=== PATIENT | male | born 1960 | race Caucasian/White ===

== ENCOUNTER 2016-09-19 12:58 | Emergency (ER) | payer OTHER, MEDICAID ==
--- NOTE | 2016-09-19 13:12 | EDPHY ---
H & P Time Seen by Provider: 09/19/16 13:11 - Personal History Tetanus Vaccine Date: <10 years - Medical/Surgical History Hx Asthma: Yes Hx Chronic Respiratory Disease: No Hx Diabetes: No Hx Cardiac Disease: No Hx Renal Disease: Yes Hx Cirrhosis: No Hx Alcoholism: No Hx HIV/AIDS: No Hx Splenectomy or Spleen Trauma: No Other PMH: hx acute kidney failure, arthritis, hypothyroid, asthma, depression - Social History Smoking Status: Former smoker Constitutional: Initial Vital Signs Temperature (C) 36.8 C 09/19/16 13:10 Heart Rate 80 09/19/16 13:10 Respiratory Rate 16 09/19/16 13:10 Blood Pressure 108/64 09/19/16 13:10 O2 Sat (%) 92 09/19/16 13:10 O2 Delivery Mode Nasal Cannula O2 (L/minute) 2 Allergies/Adverse Reactions: No Known Allergies Allergy (Verified 03/10/14 11:02) Home Medications: Medication Instructions Recorded Bupropion HCl [Bupropion HCl Sr] 150 mg PO TID 01/30/14 Gabapentin [Neurontin 300 MG (*)] 300 mg PO QID 01/30/14 Levothyroxine [Synthroid 50 mcg 50 mcg PO DAILY 01/30/14 (*)] Albuterol [Proventil Inhaler HFA 2 puffs IH Q4 PRN 02/25/14 (*)] Hydrochlorothiazide [HCTZ (*)] 25 mg PO DAILY PRN 02/25/14 Quinapril HCl [Accupril 20 MG] 20 mg PO DAILY 02/25/14 traZODone [traZODONE 50MG (*)] 100 mg PO HS 03/01/14 Doxazosin Mesylate [Cardura] 4 mg PO DAILY 06/28/14 Herbals/Supplements -Info Only 1 ea PO DAILY 06/28/14 Terbinafine HCl [LamISIL AT Cream 1 pedro TP DAILY PRN 06/28/14 (*)] traMADol [Ultram 50 mg (*)] 50 mg PO Q4 PRN 07/19/14 Docusate Sodium [Colace 100 MG (*)] 100 mg PO BID #30 cap 07/22/14 Enoxaparin [Lovenox 40 MG (*)] 40 mg SC DAILY #3 syr 07/22/14 HYDROcodone/APAP 10/325 [[place] 1 - 2 tab PO Q6 PRN #120 tab 07/22/14 10/325 (*)] Warfarin Sodium [Coumadin 5MG (*)] 5 mg PO DAILY16 #20 tab 07/22/14 celeCOXIB [Celebrex (*)] 200 mg PO DAILY #20 cap 07/22/14 oxyCODONE CR [Oxycontin] 10 mg PO BID #7 tab 07/22/14 Famotidine [Pepcid 20 MG (OTC)] 20 mg PO DAILY #7 tab 09/19/16 HYDROcodone/APAP 10/325 [[place] 1 - 2 each PO Q4-6PRN PRN #20 tab 09/19/16 10/325] Pantoprazole Sodium [Protonix 40mg 40 mg PO DAILY #30 tab 09/19/16 (*)] Medical Decision Making - Diagnostics Imaging: Discussed imaging studies w/ call center representative Radiologist ED Course/Re-evaluation: CHIEF COMPLAINT: Abdominal pain. HISTORY OF PRESENT ILLNESS: The patient is a 56-year-old male who presents with one week of dull diffuse abdominal pain that worsened today and became more sharp in nature. He reports taking Advil "like M&Ms." He denies history of similar symptoms. REVIEW OF SYSTEMS: A 10 point review of systems was performed and is negative with the exception of the elements mentioned in the history of present illness. PHYSICAL EXAM: HR, BP, O2 Sat, RR. Temp noted General Appearance: Alert, well hydrated, appropriate, and non-toxic appearing. Head: Atraumatic without scalp tenderness or obvious injury Eyes: Pupils equal, round, reactive to light and accommodation, EOMI, no trauma , no injection. Ears: Clear bilaterally, no perforation, normal landmarks Nose: Atraumatic, no rhinorrhea, clear. Throat: There is no erythema or exudates, no lesions, normal tonsils, mucus membranes moist. Neck: Supple, 2+ carotid upstroke, nontender, no lymphadenopathy. Respiratory: No retractions, no distress, no wheezes, and no accessory muscle use. Lungs are clear to auscultation bilaterally. Cardiovascular: Regular rate and rhythm, no murmurs, rubs, or gallops. Bilateral carotid, radial, dorsalis pedis, and posterior tibial pulses intact. Good capillary refill all extremities. Gastrointestinal: Abdomen is soft, nontender, non-distended, no masses, no rebound, no guarding, no peritoneal signs. Musculoskeletal: Normal active ROM of all extremities, atraumatic. Neurological: Alert, appropriate, and interactive. The patient has normal DTRs and non-focal cranial nerves, motor, sensory, and cerebellar exam. Skin: No rashes, good turgor, no nodules on palpation. Past medical history: Acute kidney failure, osteoarthritis, hypothyroidism, asthma, depression. Past surgical history: Appendectomy, 2 total knee replacements. Family history: N/A. Social history: Here alone. DIAGNOSTICS/PROCEDURES/CRITICAL CARE TIME: Study: CT of the abdomen. Indication: Pain. Results: See Image Results section for official report. The study was read by the radiologist Dr. Myers. I viewed the images myself on the PACS system. DIFFERENTIAL DIAGNOSIS: The differential diagnosis for the patient's abdominal pain included but was not limited to appendicitis, cholecystitis, hernias, testicular torsion, gastritis, and urinary tract infection. MEDICAL DECISION MAKIN-year-old male presents with diffuse abdominal pain for the past week. He reports taking a large amount of NSAIDs and I am concerned for ulcer. We will check an abdominal CT. An IV was established and labs ordered. 1L IV saline and 1mg IV Dilaudid administered. ISTAT normal. WBC elevated at 12.09. 1512: CT results conveyed to me negative by Dr. Myers, radiology. I feel that this is likely a gastritis. I will discharge the patient with prescriptions for Protonix and Pepcid. He has been given a referral to gastroenterology. I have recommended he discontinue use of Advil. 1521: Reassessed patient. Discussed results of CT and lab work. I discussed the plan with him. He is comfortable going home and understands my instructions. - Data Points Laboratory Results: Laboratory Results 09/19/16 15:00 09/19/16 14:21 09/19/16 09/19/16 09/19/16 15:00 14:21 14:19 WBC 12.09 10^3/uL H 10^3/uL (3.80-9.50) RBC 4.38 10^6/uL L 10^6/uL (4.40-6.38) Hgb 14.1 g/dL g/dL (13.7-17.5) POC Hgb 16.0 gm/dL gm/dL (14.5-17.3) Hct 41.0 % % (40.0-51.0) POC Hct 47 % % (42.8-50.6) MCV 93.6 fL fL (81.5-99.8) MCH 32.2 pg pg (27.9-34.1) MCHC 34.4 g/dL g/dL (32.4-36.7) RDW 12.3 % % (11.5-15.2) Plt Count 182 10^3/uL 10^3/uL (150-400) MPV 10.2 fL fL (8.7-11.7) Neut % (Auto) 66.6 % % (39.3-74.2) Lymph % (Auto) 23.6 % % (15.0-45.0) [place] % (Auto) 6.9 % % (4.5-13.0) Eos % (Auto) 2.1 % % (0.6-7.6) Baso % (Auto) 0.4 % % (0.3-1.7) Nucleat RBC Rel Count 0.0 % % (0.0-0.2) Absolute Neuts (auto) 8.06 10^3/uL H 10^3/uL (1.70-6.50) Absolute Lymphs (auto) 2.85 10^3/uL 10^3/uL (1.00-3.00) Absolute Monos (auto) 0.83 10^3/uL H 10^3/uL (0.30-0.80) Absolute Eos (auto) 0.25 10^3/uL 10^3/uL (0.03-0.40) Absolute Basos (auto) 0.05 10^3/uL 10^3/uL (0.02-0.10) Absolute Nucleated RBC 0.00 10^3/uL 10^3/uL (0-0.01) Immature Gran % 0.4 % % (0.0-1.1) Immature Gran # 0.05 10^3/uL 10^3/uL (0.00-0.10) POC Sodium 141 mEq/L mEq/L (134-144) Sodium 141 mEq/L mEq/L (134-144) POC Potassium 4.3 mEq/L mEq/L (3.3-5.0) Potassium 4.5 mEq/L mEq/L (3.5-5.2) POC Chloride 103 mEq/L mEq/L (96-108) Chloride 105 mEq/L mEq/L (97-110) Carbon Dioxide 24 mEq/l mEq/l (22-31) Anion Gap 12 mEq/L mEq/L (8-16) POC BUN 23 mg/dL mg/dL (7-23) BUN 23 mg/dL mg/dL (7-23) Creatinine 1.1 mg/dL mg/dL (0.7-1.3) POC Creatinine 1.0 mg/dL mg/dL (0.8-1.5) Estimated GFR > 60 Glucose 84 mg/dL mg/dL (70-100) POC Glucose 84 mg/dL mg/dL (70-100) Calcium 10.1 mg/dL mg/dL (8.5-10.4) Total Bilirubin 0.6 mg/dL mg/dL (0.1-1.4) Conjugated Bilirubin 0.4 mg/dL mg/dL (0.0-0.5) Unconjugated Bilirubin 0.2 mg/dL mg/dL (0.0-1.1) AST 70 IU/L H IU/L (17-59) ALT 97 IU/L H IU/L (21-72) Alkaline Phosphatase 68 IU/L IU/L (38-126) Total Protein 7.4 g/dL g/dL (6.3-8.2) Albumin 4.4 g/dL g/dL (3.5-5.0) Lipase 56.0 IU/L IU/L (23-300) Medications Given: Discontinued Medications Hydromorphone HCl (Dilaudid) 1 mg IVP EDNOW ONE Stop: 09/19/16 13:31 Last Admin: 09/19/16 14:17 Dose: 1 mg Sodium Chloride (Ns) 1,000 mls @ 0 mls/hr IV ONCE ONE PRN Reason: Wide Open Stop: 09/19/16 13:31 Last Admin: 09/19/16 14:17 Dose: 1,000 mls Point of Care Test Results: 09/19/16 14:19 POC Sodium 141 POC Potassium 4.3 POC Chloride 103 POC BUN 23 POC Creatinine 1.0 POC Glucose 84 Departure - Departure Disposition: Home, Routine, Self-Care Clinical Impression: Gastritis Qualifiers: Gastritis type: unspecified gastritis Chronicity: unspecified Gastritis bleeding: presence of bleeding unspecified Qualified Code(s): K29.70 - Gastritis , unspecified, without bleeding Condition: Good Instructions: Gastritis (ED) Additional Instructions: Take Protonix and Pepcid as prescribed. Call Dr. Mcnair, GI, tomorrow to set up a follow up appointment. Return for any serious worsening of condition. Referrals: Raymond Mcnair MD [Medical Doctor] - As per Instructions Prescriptions: Famotidine [Pepcid 20 MG (OTC)] 20 mg PO DAILY #7 tab HYDROcodone/APAP 10/325 [[place] 10/325] 1 - 2 each PO Q4-6PRN PRN #20 tab PRN Reason: Pain, Moderate Pantoprazole Sodium [Protonix 40mg (*)] 40 mg PO DAILY #30 tab Report Scribed for: Ayad Escobar Report Scribed by: Josesito Mack Date of Report: 09/19/16 Time of Report: 13:26
[2016-09-19] MEDS ORDERED: HYDROmorphONE/DILAUDID 1 MG/ML SYR IVP ONE (13:30)
[2016-09-19] MEDS ORDERED: NS 1,000 ML IV ONE (13:30)
[2016-09-19] MEDS ORDERED: IOPAMIDOL (ISOVUE-300) 100 ML BTL IV ONE (14:31)
[2016-09-19 14:46] VITALS: PULSE 71
[2016-09-19 15:13] LABS: ALANINE AMINOTRANSFERASE 97 IU/L (21-72); ALBUMIN 4.4 g/dL (3.5-5.0); ALKALINE PHOSPHATASE 68 IU/L (38-126); ANION GAP 12 mEq/L (8-16); ASPARTATE AMINOTRANSFERASE 70 IU/L (17-59); BILIRUBIN,TOTAL 0.6 mg/dL (0.1-1.4); BILIRUBIN-CONJUGATED 0.4 mg/dL (0.0-0.5); BILIRUBIN-UNCONJUGATED 0.2 mg/dL (0.0-1.1); CALCIUM 10.1 mg/dL (8.5-10.4); CARBON DIOXIDE 24 mEq/l (22-31); CHLORIDE 105 mEq/L (97-110); CREATININE 1.1 mg/dL (0.7-1.3); GLOMERULAR FILTRATION RATE > 60; GLUCOSE 84 mg/dL (70-100); POTASSIUM 4.5 mEq/L (3.5-5.2); SODIUM 141 mEq/L (134-144); TOTAL PROTEIN 7.4 g/dL (6.3-8.2)
[2016-09-19 15:14] LABS: % IMMATURE GRANULYOCYTES 0.4 % (0.0-1.1); ABSOLUTE IMMATURE GRANULOCYTES 0.05 10^3/uL (0.00-0.10); ADD DIFF? NO; ADD MORPH? NO; ADD SCAN? NO; ATYPICAL LYMPHOCYTE FLAG 10 (0-99); FRAGMENT RBC FLAG 0 (0-99); HEMOGLOBIN 14.1 g/dL (13.7-17.5); LEFT SHIFT FLG 0 (0-99); LIPEMIA HEMOLYSIS FLAG 90 (0-99); MEAN CELL HEMOGLOBIN 32.2 pg (27.9-34.1); MEAN CELL HEMOGLOBIN CONCENTR. 34.4 g/dL (32.4-36.7); MEAN CELL VOLUME 93.6 fL (81.5-99.8); MEAN PLATELET VOLUME 10.2 fL (8.7-11.7); PLATELET CLUMPS FLAG 0 (0-99); PLATELET COUNT 182 10^3/uL (150-400); RED BLOOD CELL COUNT 4.38 10^6/uL (4.40-6.38); RED CELL DISTRIBUTION WIDTH 12.3 % (11.5-15.2)
[2016-09-19 15:34] VITALS: BP 110/65; RESP 18; TEMP 98.4; O2SAT 92
== END 2016-09-19 15:34 | disposition home or self-care (01) ==
LOC: EDUNIT#
DX: K29.70 Gastritis, unspecified, without bleeding (principal); J45.909 Unspecified asthma, uncomplicated; Z79.01 Long term (current) use of anticoagulants; Z87.891 Personal history of nicotine dependence
CPT/HCPCS: 74177; 96361; 96374; 99285; J1170; Q9967; 82947-QW

== ENCOUNTER 2017-08-19 14:57 | Emergency (ER) | payer OTHER, MEDICAID ==
[2017-08-19] MEDS ORDERED: NS 1,000 ML IV ONE (16:06)
--- NOTE | 2017-08-19 16:08 | EDPHY ---
H & P Time Seen by Provider: 08/19/17 15:58 HPI/ROS: CHIEF COMPLAINT: Abdominal pain HISTORY OF PRESENT ILLNESS: Patient says he has had problems with "cycling abdominal pain" for several years, was seen in September of last year for similar symptoms. He says that symptoms have been worse over the last 4 weeks. Describes bilateral lower abdominal pain not better worse with eating or drinking, not associated with urinary or testicular symptoms or vomiting or diarrhea. REVIEW OF SYSTEMS: Eye: no change in vision ENT: no sore throat Cardiac: no chest pain or syncope Pulmonary: no cough or SOB Abdomen: HPI Musculoskeletal: no back pain Skin: no rash Neuro: no headache Constitutional: no fever : no urinary symptoms. No dysuria or hematuria. A comprehensive 10 point review of systems is otherwise negative aside from elements mentioned in the history of present illness. PAST MEDICAL HISTORY: Appendectomy, depression, arthritis, hypothyroid, asthma. Hypertension and an episode of renal failure in the past. Social history: Denies alcohol General Appearance: Alert and conversant, cooperative. Eyes: No scleral icterus. ENT, Mouth: Normal mucous membranes. Respiratory: Normal respiratory effort, breath sounds equal, lungs are clear to auscultation. Cardiovascular: Regular rate and rhythm. Gastrointestinal: Abdomen is soft and non tender. Normal male without scrotal swelling or tenderness. Neurological: Alert, face symmetric, normal motor and sensory in extremities. Skin: Warm and dry, no rashes. No zoster. Musculoskeletal: No peripheral edema. Psychiatric: Not agitated. Mildly anxious. Emergency Department course/MDM: Plan for i-STAT and abdominal CT scanning, urinalysis. 1658: Results discussed, will treat with Bentyl and Toradol and Benadryl. Primary care referral. 1803: Urine dip negative, still he still has abdominal pain, soft and nontender on exam. Appears anxious. 5 mg IV Valium. 1906: Patient still says I "did not get the result I was hoping for" but his abdomen is nontender, he has had abdominal pain for a month, his urine and CT scan are negative. He is reassured and I will write him a prescription for Bentyl which he can try over the next few days. Smoking Status: Former smoker Constitutional: Initial Vital Signs Temperature (C) 36.4 C 08/19/17 15:12 Heart Rate 76 08/19/17 15:12 Respiratory Rate 18 08/19/17 15:12 Blood Pressure 188/92 H 08/19/17 15:12 O2 Sat (%) 94 08/19/17 15:12 O2 Delivery Mode Room Air Allergies/Adverse Reactions: No Known Allergies Allergy (Verified 08/19/17 15:08) Home Medications: Medication Instructions Recorded Gabapentin [Neurontin 300 MG (*)] 300 mg PO QID 01/30/14 Levothyroxine [Synthroid 50 mcg 50 mcg PO DAILY 01/30/14 (*)] Albuterol [Proventil Inhaler HFA 2 puffs IH Q4 PRN 02/25/14 (*)] Quinapril HCl [Accupril 20 MG] 20 mg PO DAILY 02/25/14 traZODone [traZODONE 50MG (*)] 100 mg PO HS 03/01/14 traMADol [Ultram 50 mg (*)] 50 mg PO Q4 PRN 07/19/14 HYDROcodone/APAP 10/325 [[place] 1 - 2 each PO Q4-6PRN PRN #20 tab 09/19/16 10/325] Pantoprazole Sodium [Protonix 40mg 40 mg PO DAILY #30 tab 09/19/16 (*)] Dicyclomine [Bentyl 20 MG (*)] 20 mg PO QID #20 tab 08/19/17 Prozac 10 MG (*) 08/19/17 Medical Decision Making - Diagnostics Imaging Results: Imaging Impressions Abdomen CT 08/19/17 16:20 Impression: 1. No acute findings in the abdomen or pelvis. 2. Mild diverticulosis without evidence of diverticulitis. 3. Additional findings as above. Findings discussed with Dr. Keanu Altamirano on 08/19/2017 at 16:51. Normal CT abdomen and pelvis discussed with Génesis at 1652. Imaging: Discussed imaging studies w/ steel checker Radiologist - Data Points Laboratory Results: Laboratory Results 08/19/17 16:11 08/19/17 16:11 08/19/17 08/19/17 08/19/17 16:19 16:11 16:11 WBC 11.48 10^3/uL H 10^3/uL (3.80-9.50) RBC 4.90 10^6/uL 10^6/uL (4.40-6.38) Hgb 15.5 g/dL g/dL (13.7-17.5) POC Hgb 16.3 gm/dL gm/dL (13.7-17.5) Hct 45.9 % % (40.0-51.0) POC Hct 48 % % (40-51) MCV 93.7 fL fL (81.5-99.8) MCH 31.6 pg pg (27.9-34.1) MCHC 33.8 g/dL g/dL (32.4-36.7) RDW 12.5 % % (11.5-15.2) Plt Count 216 10^3/uL 10^3/uL (150-400) MPV 10.4 fL fL (8.7-11.7) Neut % (Auto) 64.0 % % (39.3-74.2) Lymph % (Auto) 29.3 % % (15.0-45.0) [place] % (Auto) 5.0 % % (4.5-13.0) Eos % (Auto) 1.1 % % (0.6-7.6) Baso % (Auto) 0.3 % % (0.3-1.7) Nucleat RBC Rel Count 0.0 % % (0.0-0.2) Absolute Neuts (auto) 7.34 10^3/uL H 10^3/uL (1.70-6.50) Absolute Lymphs (auto) 3.36 10^3/uL H 10^3/uL (1.00-3.00) Absolute Monos (auto) 0.57 10^3/uL 10^3/uL (0.30-0.80) Absolute Eos (auto) 0.13 10^3/uL 10^3/uL (0.03-0.40) Absolute Basos (auto) 0.04 10^3/uL 10^3/uL (0.02-0.10) Absolute Nucleated RBC 0.00 10^3/uL 10^3/uL (0-0.01) Immature Gran % 0.3 % % (0.0-1.1) Immature Gran # 0.04 10^3/uL 10^3/uL (0.00-0.10) POC Sodium 141 mEq/L mEq/L (135-145) Sodium 143 mEq/L mEq/L (135-145) POC Potassium 4.6 mEq/L mEq/L (3.3-5.0) Potassium 4.7 mEq/L mEq/L (3.5-5.2) POC Chloride 103 mEq/L mEq/L (97-110) Chloride 101 mEq/L mEq/L (97-110) Carbon Dioxide 27 mEq/l mEq/l (22-31) Anion Gap 15 mEq/L mEq/L (8-16) POC BUN 18 mg/dL mg/dL (7-23) BUN 15 mg/dL mg/dL (7-23) Creatinine 0.9 mg/dL mg/dL (0.7-1.3) POC Creatinine 0.9 mg/dL mg/dL (0.7-1.3) Estimated GFR > 60 Glucose 75 mg/dL mg/dL (70-100) POC Glucose 80 mg/dL mg/dL (70-100) Calcium 10.7 mg/dL H mg/dL (8.5-10.4) Phosphorus 3.7 mg/dL mg/dL (2.5-4.5) Total Bilirubin 0.6 mg/dL mg/dL (0.1-1.4) Conjugated Bilirubin 0.3 mg/dL mg/dL (0.0-0.5) Unconjugated Bilirubin 0.3 mg/dL mg/dL (0.0-1.1) AST 53 IU/L IU/L (17-59) ALT 99 IU/L H IU/L (21-72) Alkaline Phosphatase 72 IU/L IU/L (38-126) Total Protein 7.8 g/dL g/dL (6.3-8.2) Albumin 4.6 g/dL g/dL (3.5-5.0) Lipase 78 IU/L IU/L (23-300) Medications Given: Discontinued Medications Diazepam (Valium) 5 mg IVP EDNOW ONE Stop: 08/19/17 18:05 Last Admin: 08/19/17 18:21 Dose: 5 mg Dicyclomine HCl (Bentyl) 20 mg PO EDNOW ONE Stop: 08/19/17 16:54 Last Admin: 08/19/17 17:17 Dose: 20 mg Diphenhydramine HCl (Benadryl Injection) 25 mg IVP EDNOW ONE Stop: 08/19/17 16:54 Last Admin: 08/19/17 17:17 Dose: 25 mg Sodium Chloride (Ns) 1,000 mls @ 0 mls/hr IV EDNOW ONE; Wide Open PRN Reason: Protocol Stop: 08/19/17 16:07 Last Admin: 08/19/17 17:17 Dose: 1,000 mls Ketorolac Tromethamine (Toradol) 15 mg IVP EDNOW ONE Stop: 08/19/17 16:45 Last Admin: 08/19/17 17:17 Dose: 15 mg Point of Care Test Results: 08/19/17 16:19 POC Sodium 141 POC Potassium 4.6 POC Chloride 103 POC BUN 18 POC Creatinine 0.9 POC Glucose 80 Departure - Departure Disposition: Home, Routine, Self-Care Clinical Impression: Abdominal pain Condition: Good Instructions: Acute Abdominal Pain (DC) Referrals: Janny Mcguire PA [Primary Care Provider] - As per Instructions Prescriptions: Dicyclomine [Bentyl 20 MG (*)] 20 mg PO QID #20 tab
[2017-08-19] MEDS ORDERED: IOPAMIDOL (ISOVUE-300) 100 ML BTL ONE (16:23)
[2017-08-19 16:31] LABS: PLATELET COUNT 216 10^3/uL (150-400)
[2017-08-19] MEDS ORDERED: KETOROLAC 30 MG/1 ML SDV IVP ONE (16:44)
[2017-08-19] MEDS ORDERED: DICYCLOMINE 10 MG CAP PO ONE (16:53)
[2017-08-19] MEDS ORDERED: DIAZEPAM 5 MG/ML 1 ML SYR IVP ONE (18:04)
[2017-08-19 19:16] VITALS: BP 136/99; PULSE 63; RESP 18; TEMP 98.1; O2SAT 99
== END 2017-08-19 19:14 | disposition home or self-care (01) ==
DX: R10.9 Unspecified abdominal pain (principal); I10 Essential (primary) hypertension; J45.909 Unspecified asthma, uncomplicated; E86.9 Volume depletion, unspecified; Z87.891 Personal history of nicotine dependence; Z90.49 Acquired absence of other specified parts of digestive tract
CPT/HCPCS: 74177; 96361; 96374; 96375; 99285; J1200; J1885; J3360; Q9967; 82947-QW

== ENCOUNTER 2018-05-20 17:36 | Inpatient (IN) | payer OTHER, MEDICAID ==
[2018-05-20 18:12] LABS: PLATELET COUNT 161 10^3/uL (150-400)
--- NOTE | 2018-05-20 19:29 | EDPHY ---
H & P Time Seen by Provider: 05/20/18 17:48 HPI/ROS: CHIEF COMPLAINT: Difficulty standing, shaking HISTORY OF PRESENT ILLNESS: Patient is a 58-year-old female who presents to the emergency department with complaints of difficulty standing and shaking. The patient states his symptoms have worsened over the past couple of days. Patient states he is having difficulty eating. Patient is unable to stand without assistance. Patient has no previous episodes of this. He denies head trauma. No recent falls. The patient denies drugs or alcohol. No recent fevers or chills. No chest pain or shortness of breath. No abdominal pain. No nausea vomiting. REVIEW OF SYSTEMS: 10 systems were reveiwed and are negative with the exception of the elements mentioned in the history of present illness. Past Medical/Surgical History: Includes anxiety, chronic pain, osteoarthritis, opiate dependency, hypertension , hypothyroidism Past surgical history: No recent surgery Social history: Patient does not smoke. He drinks alcohol occasionally. Smoking Status: Former smoker Physical Exam: Vitals noted 36.7, 90, 18, 94 % on room air GENERAL: No acute distress, alert. HEENT: Eyes normal to inspection, normal pharynx, no signs of dehydration. NECK: Normal, supple. RESPIRATORY: Clear to auscultation bilaterally, no rales, rhonchi or wheezing. CVS: Regular rate and rhythm, no rubs, murmurs, or gallops. ABDOMEN: Soft, nontender, nondistended, no organomegaly. BACK: Normal to inspection, no CVA tenderness. SKIN: Normal color, no rash, warm, dry. No pallor. EXTREMITIES: No pedal edema, no calf tenderness, no Homans sign or cords, no joint swelling. NEURO/PSYCH: Higher functions: Alert and Oriented x3. Slow mentation. Slightly slow speech. Normal mood and affect. Cranial nerves: Normal as tested. Cerebellar: The patient has a tremor at baseline. Patient has difficulty standing.. Peripheral exam: Normal motor exam. Normal sensation. Constitutional: Initial Vital Signs Temperature (C) 36.7 C 05/20/18 17:42 Heart Rate 90 05/20/18 17:42 Respiratory Rate 18 05/20/18 17:42 O2 Sat (%) 94 05/20/18 17:42 O2 Delivery Mode Room Air Allergies/Adverse Reactions: No Known Allergies Allergy (Verified 05/20/18 17:40) Home Medications: Medication Instructions Recorded Gabapentin [Neurontin 300 MG (*)] 300 mg PO QID 01/30/14 Levothyroxine [Synthroid 50 mcg 50 mcg PO DAILY 01/30/14 (*)] Albuterol [Proventil Inhaler HFA 2 puffs IH Q4 PRN 02/25/14 (*)] Quinapril HCl [Accupril 20 MG] 20 mg PO DAILY 02/25/14 traZODone [traZODONE 50MG (*)] 100 mg PO HS 03/01/14 Advair Hfa 45-21 Mcg Inhaler 11/17/17 Ibuprofen 11/17/17 hydrOXYzine HCL [Hydroxyzine HCl] 50 mg PO Q6-8PRN PRN #15 tablet 04/13/18 Amoxicillin 05/20/18 Rexulti 05/20/18 oxyCODONE CR 05/20/18 Medical Decision Making - Diagnostics Imaging Results: Imaging Impressions Head CT 05/20/18 18:33 Impression: There is no acute intracranial abnormality identified on this unenhanced CT evaluation. If there is further clinical concern regarding the patient's symptoms, MR imaging is suggested, if not otherwise contraindicated. Findings were discussed with SAE EDGAR MD at 18:53, on 05/20/2018. ED Course/Re-evaluation: In the emergency department I discussed possible etiologies with the patient answered all his questions. I again questioned the patient regarding alcohol use and possible alcohol withdrawal. Patient states he drinks only occasionally. The patient is mildly anemic. Hematocrit is 36. Patient's chemistry panel is notable for an elevated creatinine 3.1. Patient was given 1 L of normal saline hydration. Head CT: Please refer to the dictated report. No acute disease noted. I discussed results with the patient. I answered all his questions. Patient will be admitted for further observation. I discussed case with Dr. Rodriguez Differential Diagnosis: My differential includes but is not limited to alcohol withdrawal, opioid abuse , electrolyte abnormality, sugar abnormality, subarachnoid hemorrhage, subdural hematoma, epidural hematoma, mass, malignancy, normal pressure hydrocephalus - Data Points Laboratory Results: Laboratory Results 05/20/18 17:55 05/20/18 17:55 05/20/18 05/20/18 05/20/18 18:37 18:03 17:55 WBC RBC Hgb POC Hgb 12.6 gm/dL L gm/dL (13.7-17.5) Hct POC Hct 37 % L % (40-51) MCV MCH MCHC RDW Plt Count MPV Neut % (Auto) Lymph % (Auto) [place] % (Auto) Eos % (Auto) Baso % (Auto) Nucleat RBC Rel Count Absolute Neuts (auto) Absolute Lymphs (auto) Absolute Monos (auto) Absolute Eos (auto) Absolute Basos (auto) Absolute Nucleated RBC Immature Gran % Immature Gran # POC Sodium 141 mEq/L mEq/L (135-145) Sodium POC Potassium 4.6 mEq/L mEq/L (3.3-5.0) Potassium POC Chloride 110 mEq/L mEq/L (97-110) Chloride Carbon Dioxide Anion Gap POC BUN 46 mg/dL H mg/dL (7-23) BUN Creatinine POC Creatinine 3.1 mg/dL H mg/dL (0.7-1.3) Estimated GFR Glucose POC Glucose 95 mg/dL mg/dL (70-100) Calcium POC Troponin I 0.01 ng/mL ng/mL (0.00-0.08) NT-Pro-B Natriuret Pep 56 pg/mL pg/mL (0-125) 05/20/18 05/20/18 17:55 17:55 WBC 8.88 10^3/uL 10^3/uL (3.80-9.50) RBC 3.97 10^6/uL L 10^6/uL (4.40-6.38) Hgb 11.9 g/dL L g/dL (13.7-17.5) POC Hgb Hct 36.3 % L % (40.0-51.0) POC Hct MCV 91.4 fL fL (81.5-99.8) MCH 30.0 pg pg (27.9-34.1) MCHC 32.8 g/dL g/dL (32.4-36.7) RDW 12.1 % % (11.5-15.2) Plt Count 161 10^3/uL 10^3/uL (150-400) MPV 9.8 fL fL (8.7-11.7) Neut % (Auto) 58.1 % % (39.3-74.2) Lymph % (Auto) 27.0 % % (15.0-45.0) [place] % (Auto) 8.0 % % (4.5-13.0) Eos % (Auto) 6.0 % % (0.6-7.6) Baso % (Auto) 0.7 % % (0.3-1.7) Nucleat RBC Rel Count 0.0 % % (0.0-0.2) Absolute Neuts (auto) 5.16 10^3/uL 10^3/uL (1.70-6.50) Absolute Lymphs (auto) 2.40 10^3/uL 10^3/uL (1.00-3.00) Absolute Monos (auto) 0.71 10^3/uL 10^3/uL (0.30-0.80) Absolute Eos (auto) 0.53 10^3/uL H 10^3/uL (0.03-0.40) Absolute Basos (auto) 0.06 10^3/uL 10^3/uL (0.02-0.10) Absolute Nucleated RBC 0.00 10^3/uL 10^3/uL (0-0.01) Immature Gran % 0.2 % % (0.0-1.1) Immature Gran # 0.02 10^3/uL 10^3/uL (0.00-0.10) POC Sodium Sodium 138 mEq/L mEq/L (135-145) POC Potassium Potassium 4.8 mEq/L mEq/L (3.5-5.2) POC Chloride Chloride 110 mEq/L mEq/L (97-110) Carbon Dioxide 18 mEq/l L mEq/l (22-31) Anion Gap 10 mEq/L mEq/L (6-14) POC BUN BUN 52 mg/dL H mg/dL (7-23) Creatinine 2.8 mg/dL H mg/dL (0.7-1.3) POC Creatinine Estimated GFR 23 Glucose 95 mg/dL mg/dL (70-100) POC Glucose Calcium 9.4 mg/dL mg/dL (8.5-10.4) POC Troponin I NT-Pro-B Natriuret Pep Point of Care Test Results: Chemistry 05/20/18 05/20/18 18:37 18:03 POC Sodium 141 mEq/L mEq/L (135-145) POC Potassium 4.6 mEq/L mEq/L (3.3-5.0) POC Chloride 110 mEq/L mEq/L (97-110) POC BUN 46 mg/dL H mg/dL (7-23) POC Creatinine 3.1 mg/dL H mg/dL (0.7-1.3) POC Glucose 95 mg/dL mg/dL (70-100) POC Troponin I 0.01 ng/mL ng/mL (0.00-0.08) ISTAT H&H 05/20/18 18:03 POC Hgb 12.6 gm/dL L gm/dL (13.7-17.5) POC Hct 37 % L % (40-51) Departure - Departure Disposition: [facility] Inpatient Acute Clinical Impression: Ataxia, Tremor, Renal insufficiency Condition: Good Referrals: Janny Mcguire PA [Primary Care Provider] - As per Instructions
[2018-05-20] MEDS ORDERED: ONDANSETRON 4 MG/2 ML VIAL IVP PRN (21:48)
[2018-05-20] MEDS ORDERED: ONDANSETRON DISINTEGRATING 4 MG TAB PO PRN (21:48)
[2018-05-20] MEDS: NS 1,000 ML IV SCH (22:18)
[2018-05-20] MEDS: oxyCODONE IR 15 MG TAB PO SCH (23:29)
[2018-05-20] MEDS: traMADol 50 MG TAB PO SCH (23:29)
[2018-05-20] MEDS: traZODone 50 MG TAB PO SCH (23:29)
[2018-05-20] MEDS ORDERED: GABAPENTIN 400 MG CAP PO SCH (23:30)
[2018-05-21] MEDS: HEPARIN 5,000 UNIT/0.5 ML INJ SC SCH ×4 (00:46→20:42)
[2018-05-21] MEDS: FLUTICASONE/SALMETER 250/50MCG DISKUS IH SCH ×2 (00:48→20:29)
--- NOTE | 2018-05-21 01:53 | PDGENHP ---
History and Physical - History of Present Illness History Information - Allergies/Home Medication List Allergies/Adverse Reactions: No Known Allergies Allergy (Verified 05/20/18 17:40) Home Medications: Levothyroxine [Synthroid 50 mcg (*)] 50 mcg PO DAILY 01/30/14 [Last Taken ] Albuterol [Proventil Inhaler HFA (*)] 2 puffs IH Q4 PRN 02/25/14 [Last Taken 07/03 12:00] Quinapril HCl [Accupril 20 MG] 20 mg PO DAILY 02/25/14 [Last Taken 05/20/18] traZODone [traZODONE 50MG (*)] 1 - 3 tab PO HS 03/01/14 [Last Taken 05/19/18] Fluticasone/Salmeter 250/50Mcg [Advair 250/50 (*)] 1 puffs IH HS 05/20/18 [Last Taken 05/19/18] Gabapentin [Neurontin 400 MG (*)] 800 - 1,200 mg PO HS 05/20/18 [Last Taken 06/06] oxyCODONE IR [Oxycodone Ir (*)] 15 - 30 mg PO HS 05/20/18 [Last Taken 05/19/18] traMADol [Ultram 50 mg (*)] 100 mg PO QID 05/20/18 [Last Taken 05/20/18 12:00] - Social History Smoking Status: Former smoker Review of Systems Review of Systems: Physical Exam Physical Exam: Temp Pulse Resp BP Pulse Ox 37.1 C 64 16 101/66 96 05/20/18 23:53 05/21/18 00:51 05/21/18 00:51 05/20/18 23:53 05/21/18 00:51 O2 (L/minute) 2 Lab Data & Imaging Review 05/20/18 17:55 05/20/18 17:55 WBC 8.88 10^3/uL (3.80-9.50) 05/20/18 17:55 RBC 3.97 10^6/uL (4.40-6.38) L 05/20/18 17:55 Hgb 11.9 g/dL (13.7-17.5) L 05/20/18 17:55 POC Hgb 12.6 gm/dL (13.7-17.5) L 05/20/18 18:03 Hct 36.3 % (40.0-51.0) L 05/20/18 17:55 POC Hct 37 % (40-51) L 05/20/18 18:03 MCV 91.4 fL (81.5-99.8) 05/20/18 17:55 MCH 30.0 pg (27.9-34.1) 05/20/18 17:55 MCHC 32.8 g/dL (32.4-36.7) 05/20/18 17:55 RDW 12.1 % (11.5-15.2) 05/20/18 17:55 Plt Count 161 10^3/uL (150-400) 05/20/18 17:55 MPV 9.8 fL (8.7-11.7) 05/20/18 17:55 Neut % (Auto) 58.1 % (39.3-74.2) 05/20/18 17:55 Lymph % (Auto) 27.0 % (15.0-45.0) 05/20/18 17:55 [place] % (Auto) 8.0 % (4.5-13.0) 05/20/18 17:55 Eos % (Auto) 6.0 % (0.6-7.6) 05/20/18 17:55 Baso % (Auto) 0.7 % (0.3-1.7) 05/20/18 17:55 Nucleat RBC Rel Count 0.0 % (0.0-0.2) 05/20/18 17:55 Absolute Neuts (auto) 5.16 10^3/uL (1.70-6.50) 05/20/18 17:55 Absolute Lymphs (auto) 2.40 10^3/uL (1.00-3.00) 05/20/18 17:55 Absolute Monos (auto) 0.71 10^3/uL (0.30-0.80) 05/20/18 17:55 Absolute Eos (auto) 0.53 10^3/uL (0.03-0.40) H 05/20/18 17:55 Absolute Basos (auto) 0.06 10^3/uL (0.02-0.10) 05/20/18 17:55 Absolute Nucleated RBC 0.00 10^3/uL (0-0.01) 05/20/18 17:55 Immature Gran % 0.2 % (0.0-1.1) 05/20/18 17:55 Immature Gran # 0.02 10^3/uL (0.00-0.10) 05/20/18 17:55 POC Sodium 141 mEq/L (135-145) 05/20/18 18:03 Sodium 138 mEq/L (135-145) 05/20/18 17:55 POC Potassium 4.6 mEq/L (3.3-5.0) 05/20/18 18:03 Potassium 4.8 mEq/L (3.5-5.2) 05/20/18 17:55 POC Chloride 110 mEq/L (97-110) 05/20/18 18:03 Chloride 110 mEq/L (97-110) 05/20/18 17:55 Carbon Dioxide 18 mEq/l (22-31) L 05/20/18 17:55 Anion Gap 10 mEq/L (6-14) 05/20/18 17:55 POC BUN 46 mg/dL (7-23) H 05/20/18 18:03 BUN 52 mg/dL (7-23) H 05/20/18 17:55 Creatinine 2.8 mg/dL (0.7-1.3) H 05/20/18 17:55 POC Creatinine 3.1 mg/dL (0.7-1.3) H 05/20/18 18:03 Estimated GFR 23 05/20/18 17:55 Glucose 95 mg/dL (70-100) 05/20/18 17:55 POC Glucose 95 mg/dL (70-100) 05/20/18 18:03 Calcium 9.4 mg/dL (8.5-10.4) 05/20/18 17:55 POC Troponin I 0.01 ng/mL (0.00-0.08) 05/20/18 18:37 NT-Pro-B Natriuret Pep 56 pg/mL (0-125) 05/20/18 17:55 Urine Color YELLOW 05/21/18 00:45 Urine Appearance CLEAR 05/21/18 00:45 Urine pH 5.0 (5.0-7.5) 05/21/18 00:45 Ur Specific [place] 1.017 (1.002-1.030) 05/21/18 00:45 Urine Protein NEGATIVE (NEGATIVE) 05/21/18 00:45 Urine Ketones NEGATIVE (NEGATIVE) 05/21/18 00:45 Urine Blood NEGATIVE (NEGATIVE) 05/21/18 00:45 Urine Nitrate NEGATIVE (NEGATIVE) 05/21/18 00:45 Urine Bilirubin NEGATIVE (NEGATIVE) 05/21/18 00:45 Urine Urobilinogen NEGATIVE EU (0.2-1.0) 05/21/18 00:45 Ur Leukocyte Esterase NEGATIVE (NEGATIVE) 05/21/18 00:45 Ur Random Creatinine 228.3 mg/dL 05/21/18 00:45 Ur Random Sodium 43 mEq/L (30-90) 05/21/18 00:45 Urine Glucose NEGATIVE (NEGATIVE) 05/21/18 00:45 [place] 0.6 mEq/L (0.6-1.2) 05/20/18 19:55 Assessment & Plan Assessment: Ataxia (Acute) Renal insufficiency (Acute) Tremor (Acute)
[2018-05-21 05:33] LABS: PLATELET COUNT 143 10^3/uL (150-400)
[2018-05-21] MEDS: traMADol 50 MG TAB PO SCH ×4 (06:04→20:37)
[2018-05-21] MEDS: NS 1,000 ML IV SCH ×2 (07:25→17:22)
[2018-05-21] MEDS: LEVOTHYROXINE 50 MCG TAB PO SCH (07:45)
--- NOTE | 2018-05-21 08:29 | PDGENHP ---
History and Physical - Chief Complaint weakness, tremors - History of Present Illness Negro Juan is a 58 year old male with past medical history of hypertension, hypothyroid, obsessive-compulsive disorder admitted with progressive tremors and weakness. He says that about a month ago he was started on lithium for his OCD and shortly after that developed a new tremor and progressive weakness. His weakness is mostly in his lower extremities. His tremor became so severe that he discontinue the lithium about 4 days ago. He thinks that his tremor might be slightly better since stopping medications. He also has been urinating much more than usual and also is very thirsty. He also endorses double vision which started a few weeks ago as well. He says that he has a chronic neuropathy in his legs and that is unchanged. He denied any new headaches, NV, fevers, chills, dysuria, hematuria or other symptoms. History Information - Allergies/Home Medication List Allergies/Adverse Reactions: No Known Allergies Allergy (Verified 05/20/18 17:40) Home Medications: Levothyroxine [Synthroid 50 mcg (*)] 50 mcg PO DAILY 01/30/14 [Last Taken ] Albuterol [Proventil Inhaler HFA (*)] 2 puffs IH Q4 PRN 02/25/14 [Last Taken 07/03 12:00] Quinapril HCl [Accupril 20 MG] 20 mg PO DAILY 02/25/14 [Last Taken 05/20/18] traZODone [traZODONE 50MG (*)] 1 - 3 tab PO HS 03/01/14 [Last Taken 05/19/18] Fluticasone/Salmeter 250/50Mcg [Advair 250/50 (*)] 1 puffs IH HS 05/20/18 [Last Taken 05/19/18] Gabapentin [Neurontin 400 MG (*)] 800 - 1,200 mg PO HS 05/20/18 [Last Taken 06/06] oxyCODONE IR [Oxycodone Ir (*)] 15 - 30 mg PO HS 05/20/18 [Last Taken 05/19/18] traMADol [Ultram 50 mg (*)] 100 mg PO QID 05/20/18 [Last Taken 05/20/18 12:00] I have personally reviewed and updated: family history, medical history, social history, surgical history - Past Medical History hypertension Additional medical history: hypothyroid, OCD, nerve pain - Surgical History Additional surgical history: knee replacement - Family History Positive for: non-pertinent - Social History Smoking Status: Former smoker Alcohol Use: Rarely Drug Use: None Review of Systems Review of Systems: ROS: 10pt was reviewed & negative except for what was stated in HPI & below Physical Exam Physical Exam: Temp Pulse Resp BP Pulse Ox 36.4 C 74 16 122/64 H 90 L 05/21/18 07:14 05/21/18 07:14 05/21/18 07:14 05/21/18 07:14 05/21/18 07:14 O2 (L/minute) 4 Constitutional: no apparent distress, appears nourished, not in pain Eyes: PERRL Ears, Nose, Mouth, Throat: moist mucous membranes, hearing normal, ears appear normal, no oral mucosal ulcers Cardiovascular: regular rate and rhythym, no murmur, rub, or gallop Peripheral Pulses: 2+: dorsalis-pedis (R), dorsalis-pedis (L) Respiratory: no respiratory distress, no rales or rhonchi, clear to auscultation Gastrointestinal: normoactive bowel sounds, soft, non-tender abdomen, no palpable masses Genitourinary: no bladder fullness Skin: warm, normal color, no rashes or abrasions, no fluctuance Musculoskeletal: generalized weakness Neurologic: AAOx3, sensation intact bilaterally, CN II-XII Intact, other (upper extremity tremor noted. strenght is 5/5 in upper and lower extremities on flexion and extension. ) Psychiatric: interacting appropriately, not encephalopathic, thought process linear Lymph, Heme, Immunologic: no cervical LAD Lab Data & Imaging Review 05/21/18 04:34 05/21/18 04:34 WBC 8.98 10^3/uL (3.80-9.50) 05/21/18 04:34 RBC 3.55 10^6/uL (4.40-6.38) L 05/21/18 04:34 Hgb 10.7 g/dL (13.7-17.5) L 05/21/18 04:34 POC Hgb 12.6 gm/dL (13.7-17.5) L 05/20/18 18:03 Hct 34.1 % (40.0-51.0) L 05/21/18 04:34 POC Hct 37 % (40-51) L 05/20/18 18:03 MCV 96.1 fL (81.5-99.8) 05/21/18 04:34 MCH 30.1 pg (27.9-34.1) 05/21/18 04:34 MCHC 31.4 g/dL (32.4-36.7) L 05/21/18 04:34 RDW 12.2 % (11.5-15.2) 05/21/18 04:34 Plt Count 143 10^3/uL (150-400) L 05/21/18 04:34 MPV 10.1 fL (8.7-11.7) 05/21/18 04:34 Neut % (Auto) 40.2 % (39.3-74.2) 05/21/18 04:34 Lymph % (Auto) 44.0 % (15.0-45.0) 05/21/18 04:34 [place] % (Auto) 8.8 % (4.5-13.0) 05/21/18 04:34 Eos % (Auto) 6.1 % (0.6-7.6) 05/21/18 04:34 Baso % (Auto) 0.6 % (0.3-1.7) 05/21/18 04:34 Nucleat RBC Rel Count 0.0 % (0.0-0.2) 05/21/18 04:34 Absolute Neuts (auto) 3.61 10^3/uL (1.70-6.50) 05/21/18 04:34 Absolute Lymphs (auto) 3.95 10^3/uL (1.00-3.00) H 05/21/18 04:34 Absolute Monos (auto) 0.79 10^3/uL (0.30-0.80) 05/21/18 04:34 Absolute Eos (auto) 0.55 10^3/uL (0.03-0.40) H 05/21/18 04:34 Absolute Basos (auto) 0.05 10^3/uL (0.02-0.10) 05/21/18 04:34 Absolute Nucleated RBC 0.00 10^3/uL (0-0.01) 05/21/18 04:34 Immature Gran % 0.3 % (0.0-1.1) 05/21/18 04:34 Immature Gran # 0.03 10^3/uL (0.00-0.10) 05/21/18 04:34 POC Sodium 141 mEq/L (135-145) 05/20/18 18:03 Sodium 137 mEq/L (135-145) 05/21/18 04:34 POC Potassium 4.6 mEq/L (3.3-5.0) 05/20/18 18:03 Potassium 5.3 mEq/L (3.5-5.2) H 05/21/18 04:34 POC Chloride 110 mEq/L (97-110) 05/20/18 18:03 Chloride 111 mEq/L (97-110) H 05/21/18 04:34 Carbon Dioxide 21 mEq/l (22-31) L 05/21/18 04:34 Anion Gap 5 mEq/L (6-14) L 05/21/18 04:34 POC BUN 46 mg/dL (7-23) H 05/20/18 18:03 BUN 54 mg/dL (7-23) H 05/21/18 04:34 Creatinine 2.6 mg/dL (0.7-1.3) H 05/21/18 04:34 POC Creatinine 3.1 mg/dL (0.7-1.3) H 05/20/18 18:03 Estimated GFR 25 05/21/18 04:34 Glucose 88 mg/dL (70-100) 05/21/18 04:34 POC Glucose 95 mg/dL (70-100) 05/20/18 18:03 Calcium 8.7 mg/dL (8.5-10.4) 05/21/18 04:34 POC Troponin I 0.01 ng/mL (0.00-0.08) 05/20/18 18:37 NT-Pro-B Natriuret Pep 56 pg/mL (0-125) 05/20/18 17:55 Urine Color YELLOW 05/21/18 00:45 Urine Appearance CLEAR 05/21/18 00:45 Urine pH 5.0 (5.0-7.5) 05/21/18 00:45 Ur Specific [place] 1.017 (1.002-1.030) 05/21/18 00:45 Urine Protein NEGATIVE (NEGATIVE) 05/21/18 00:45 Urine Ketones NEGATIVE (NEGATIVE) 05/21/18 00:45 Urine Blood NEGATIVE (NEGATIVE) 05/21/18 00:45 Urine Nitrate NEGATIVE (NEGATIVE) 05/21/18 00:45 Urine Bilirubin NEGATIVE (NEGATIVE) 05/21/18 00:45 Urine Urobilinogen NEGATIVE EU (0.2-1.0) 05/21/18 00:45 Ur Leukocyte Esterase NEGATIVE (NEGATIVE) 05/21/18 00:45 Ur Random Creatinine 228.3 mg/dL 05/21/18 00:45 Ur Random Sodium 43 mEq/L (30-90) 05/21/18 00:45 Urine Glucose NEGATIVE (NEGATIVE) 05/21/18 00:45 [place] 0.6 mEq/L (0.6-1.2) 05/20/18 19:55 Assessment & Plan Assessment: 58 year old male with pmh of OCD recently started on lithium, HTN, Hypothyroid admitted with ataxia, weakness and tremor. Ataxia (Acute)- CT head reviewed and no abnormality noted by myself. I reviewed his home medications and history is suggestive of side effects related to lithium. I discussed his case with neurology who will evaluate the patient as well. [place] stopped. 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 has responded to fluids. GFR improved with IVF. will continue fluids, and montor renal function daily. If fails to normalize will consult nephrology and obtain urine studies and renal US Tremor (Acute)- Likely related to lithium but awaiting neurology evaluation Hyperkalemia- secondary to LILLY and yanet inhibitor Give IVF and recheck Hypertension- on yanet inhibitor. Hold for now in setting of LILLY and hyperkalemia Hypothyroid- will check TSH to ensure no hyperthyroid or abnormality especially as he is using lithium. Neuropathy- chronic neuropathic pain, on neurontin and analgesics. Hold for now. PPX- SCDS, heparin fluids- IVF Lytes- Hyperkalemia Nutrition- regular Cor- Full Dispo- change to inpatient for LILLY, weakness, tremor, hyperkalemia Plan: Weakness Tremor Acute kidney injury
--- NOTE | 2018-05-21 14:02 | ASMTCMCOM ---
CM Note CM Note Notes: Patient admitted with tremors and weakness which he attributed to newly prescribed [place]. He discontinued the drug a few days ago. He has a history of HTN and OCD. Neurology to consult. Patient lives independently. He has a CM with [facility], Kedar. He is normally independent in ADLs, and his PCP is Janny Mcguire at [facility]. Discharge needs are TBD but will likely need a f/u appt at [facility] for med management/adjustment. Case Management will follow. Date Signed: 05/21/2018 02:01 PM Electronically Signed By:Mary Ann Nelson RN
--- NOTE | 2018-05-21 15:28 | PDMN ---
Medical Necessity Medical necessity: [facility] M326 Acute Renal Failure: 58 yo presents w/ progressive tremors, ataxia and weakness. Initially OBS for workup but further eval shows pt in acute renal insufficiency w/ creat 2.8 and rising K overnight from wnl to 5.3. Anticipate>2MN for ongoing dx testing and supportive care with IVF, neurology consult, PT/OT, serial labs. Meets [facility] IP criteria for ARF w/ elevated creatinine and hyperkalemia. Hx HTN, Hypothyroid and OCD, recently stopped lithium. Change to IP status 05/21/18@1456 per MD order
[2018-05-21] MEDS: GABAPENTIN 300 MG CAP PO SCH ×2 (17:34→20:37)
[2018-05-21] MEDS: ACETAMINOPHEN 325 MG TAB PO PRN (17:51)
[2018-05-21] MEDS: ALBUTEROL 60 PUFFS/8 GM MDI IH PRN (18:01)
--- NOTE | 2018-05-21 20:35 | NEUROPROG ---
Assessment: [id number] - Neurology Consult: - CC: Dr. Rowell consulted neurology for tremors. Results placed in EMR for her review. - HPI: Pt admitted to [facility] on 05/20/18 for tremors. He has OCD for which he started lithium 1 month ago. His tremor has been progressing since then per patient. He stopped lithium 4 days ago and feels tremors may be slightly better. On admission to [facility] he was noted to be in acute renal failure. Head CT was normal. He also endorsed vision problems and increased urination. I saw the patient on 05/21/18. Neurologic exam showed action tremor in both arms. His symptoms of tremor seem most likely to be a side effect of lithium use. His acute renal failure may also be worsening tremor. Agree with stopping lithium and addressing acute renal failure. Pt can f/u with me in 1-6 weeks after hospital discharge to ensure tremor resolves. - PMHx: HTN, OCD, hypothyroidism, chronic nerve pain in legs, knee replacement - Home Meds: synthroid, albuterol, quinapril, trazodone, advair, gabapentin, oxycodone, tramadol - SHx: former tobacco user FHx: NC - ROS: Pt denied acute fever, total vision loss, active severe chest pain, respiratory failure, total body severe rash, total bowel/bladder incontinence, psychosis, active seizures, or active bleeding - O: VS reviewed General: Alert Eyes: Fundoscopic exam not able to visualize optic disks CV: Heart RRR, no murmur, no carotid bruit Lungs: Clear to auscultation bilaterally, no rhonchi or rales Neuro: - Mental: . Oriented x person/place/date . concentration appears normal . speech fluency/comprehension normal . memory appears normal . fund of knowledge appear intact - Cranial Nerves: . II: PERRL, VFFTC . III/IV/: EOMI, no nystagmus, normal smooth pursuits, no Ptosis . V: facial sensation intact to LT . VII: face symmetric to eye closure and smile . VIII: hearing intact to conversation . IX/X: uvula raises symmetrically . XI: SCM 5/5 B/L strength . XII: tongue protrudes midline w/nl strength - Motor: . Tone: normal tone in all 4 extremity, bilateral action tremor in both arms . Strength: no pronator drift, strength 5/5 throughout (B/L delt, bic, tri, hand tumbler tender, hf/he, df/pf) - Reflexes: B/L bic 2/4 - Sensory: all 4 extremity intact to light touch - Coord: [id number]-[id number] wnl, MUSA wnl, [id number] wnl - Gait: deferred - Labs: 05/20/18- CBC Hct 36.3L, Chem Cr 2.8H BUN 52H CO2 18L, lithium wnl - Rads: 05/20/18- Head CT wo: no acute intracranial abnl noted (I personally visualized the images on 05/21/18) - Assessment: 1. Tremor: Pt admitted to [facility] on 05/20/18 for tremors and weakness. He has OCD for which he started lithium 1 month ago. His tremor has been progressing since then per patient. He stopped lithium 4 days ago and feels tremors may be slightly better. On admission to [facility] he was noted to be in acute renal failure. Head CT was normal. He also endorsed vision problems and increased urination. I saw the patient on 05/21/18. Neurologic exam showed bilateral intention tremor in arms. His symptoms of tremor seem most likely to be a side effect of lithium use. His acute renal failure may also be worsening tremor. Agree with stopping lithium and addressing acute renal failure. Pt can f/u with me in 1-6 weeks after hospital discharge to ensure tremor resolves. - Plan: - Agree with stopping lithium as it is most likely cause of tremor - Agree with addressing acute renal failure - No further inpatient neurology w/u needed, neurology will sign off - F/U in neurology clinic in 1-6 weeks to ensure tremor resolves Objective: Vital Signs Temp Pulse Resp BP Pulse Ox 36.8 C 64 14 144/71 H 95 05/21/18 19:35 05/21/18 20:29 05/21/18 20:29 05/21/18 19:35 05/21/18 20:29 05/20/18 05/21/18 05/22/18 05:59 05:59 05:59 Intake Total 1582 Output Total 750 Balance 832 Allergies/Adverse Reactions: No Known Allergies Allergy (Verified 05/20/18 17:40)
[2018-05-21] MEDS: traZODone 50 MG TAB PO SCH (20:37)
[2018-05-21] MEDS: oxyCODONE IR 15 MG TAB PO SCH (20:38)
[2018-05-22] MEDS: NS 1,000 ML IV SCH (04:06)
[2018-05-22] MEDS: traMADol 50 MG TAB PO SCH ×4 (04:52→20:11)
[2018-05-22] MEDS: LEVOTHYROXINE 50 MCG TAB PO SCH (04:53)
[2018-05-22] MEDS: HEPARIN 5,000 UNIT/0.5 ML INJ SC SCH ×3 (04:55→22:10)
[2018-05-22] MEDS: ACETAMINOPHEN 325 MG TAB PO PRN ×2 (05:27→10:17)
[2018-05-22] MEDS: GABAPENTIN 300 MG CAP PO SCH ×3 (08:50→22:10)
[2018-05-22] MEDS ORDERED: traMADol 50 MG TAB PO SCH (09:00)
--- NOTE | 2018-05-22 12:12 | ASMTCMCOM ---
CM Note CM Note Notes: ESTELA met with Negro to discuss discharge planning. He reports that he is feeling stronger and would feel comfortable being discharged tomorrow, Friday. ESTELA discussed plan with MD. CM submit referral for [facility] (PT/OT/RN), provided with access information. Pt agreeable to [facility], CM provided pt with information and pt will call to arrange. Pt reports he has a bus pass and would be ok discharging and transporting himself home on the bus. ESTELA spoke with pt's case managers at [facility] (Kedar [phone]) who would like to be alerted via voicemail when pt is getting discharged. CM provided Kedar with updates and needs for following-up with MD recommendations for neurology f/u. ESTELA scheduled pt a follow-up at [facility] with his PCP, Janny Conner for 06/04/18 at 2:40pm with check-in at 2:25pm. Plan: Home with [facility] Date Signed: 05/22/2018 12:11 PM Electronically Signed By:MARCELA Mccoy
--- NOTE | 2018-05-22 12:38 | HOSPPROG ---
Hospitalist Progress Note Assessment/Plan: 58 year old male with pmh of OCD recently started on lithium, HTN, Hypothyroid admitted with ataxia, weakness and tremor. Ataxia (Acute)- CT head reviewed and no abnormality noted by myself. I reviewed his home medications and history is suggestive of side effects related to lithium. I discussed the patient with Neurology who saw patient. They feel that his symptoms are likely secondary to lithium. They recommend stopping lithium and he can follow up with then outpatient. Renal insufficiency (Acute)- Likely also secondary to lithium nephropathy. LILLY responding to fluids and holding lithium. Continue to monitor renal function. Stop IVF today. Tremor (Acute)- Likely related to lithium Hyperkalemia- Resolved with fluids Hypertension- on yanet inhibitor. Hold for now in setting of LILLY and hyperkalemia. Resume on discharge. Hypothyroid- will check TSH to ensure no hyperthyroid or abnormality especially as he is using lithium. Neuropathy- chronic neuropathic pain, on neurontin and analgesics. Hold for now. PPX- SCDS, heparin fluids- IVF Lytes- Hyperkalemia Nutrition- regular Cor- Full Dispo- Dispo pending. PT/OT eval for ataxia and weakness and LILLY Subjective: tremor and ataxia somewhat better but not totally Objective: Vital Signs Temp Pulse Resp BP Pulse Ox 36.8 C 60 12 124/72 H 89 L 05/22/18 11:06 05/22/18 11:06 05/22/18 11:06 05/22/18 11:06 05/22/18 11:06 Laboratory Results 05/22/18 08:55 05/21/18 05/22/18 05/23/18 05:59 05:59 05:59 Intake Total 1932 Output Total 1750 500 Balance 182 -500 - Physical Exam Constitutional: no apparent distress, appears nourished, not in pain Eyes: PERRL, anicteric sclera, EOMI Ears, Nose, Mouth, Throat: moist mucous membranes, hearing normal, ears appear normal, no oral mucosal ulcers Cardiovascular: regular rate and rhythym, no murmur, rub, or gallop Respiratory: no respiratory distress, no rales or rhonchi, clear to auscultation Gastrointestinal: normoactive bowel sounds, soft, non-tender abdomen, no palpable masses Genitourinary: no bladder fullness, no bladder tenderness, no renal bruits Skin: no rashes or abrasions, no fluctuance, no induration Musculoskeletal: full muscle strength, no muscle tenderness, normal joint ROM Neurologic: AAOx3, sensation intact bilaterally Psychiatric: interacting appropriately, not anxious, not encephalopathic, thought process linear Lymph, Heme, Immunologic: no cervical LAD, no supraclavicular LAD ICD10 Worksheet Patient Problems: Problems Problem Status Onset Ataxia Acute Renal insufficiency Acute Tremor Acute Asthma Active Essential hypertension Active Hypoxia Active Narcotic drug user Active Obesity Active Obstructive sleep apnea syndrome Active Osteoarthritis of knee Acute
[2018-05-22] MEDS: ALBUTEROL 60 PUFFS/8 GM MDI IH PRN ×2 (13:38→20:06)
[2018-05-22] MEDS: FLUTICASONE/SALMETER 250/50MCG DISKUS IH SCH (20:06)
[2018-05-22] MEDS: oxyCODONE IR 15 MG TAB PO SCH (20:11)
[2018-05-22] MEDS: traZODone 50 MG TAB PO SCH (20:12)
[2018-05-23] MEDS: HEPARIN 5,000 UNIT/0.5 ML INJ SC SCH (05:19)
[2018-05-23] MEDS: traMADol 50 MG TAB PO SCH ×2 (05:19→11:39)
[2018-05-23] MEDS: LEVOTHYROXINE 50 MCG TAB PO SCH (05:19)
[2018-05-23] MEDS: ACETAMINOPHEN 325 MG TAB PO PRN (05:22)
[2018-05-23 07:51] VITALS: BP 138/77
[2018-05-23] MEDS: GABAPENTIN 300 MG CAP PO SCH (08:31)
[2018-05-23] MEDS: ALBUTEROL 60 PUFFS/8 GM MDI IH PRN (08:32)
--- NOTE | 2018-05-23 12:00 | PDIAF ---
- Diagnosis Code Status: Full Code - Medication Management Discharge Medications: electronically signed and located in the Home Medication List. - Orders Services needed: Home Care, Registered Nurse Home Care Face to Face: I certify that this patient was under my care and that I had the required [id number] encounter meeting the encounter requirements on the discharge day. My findings support the fact that the patient is homebound as defined in Home Care Face to Face Continued: CMS Chapter 7 Medicare Benefits Manual 30.1.1 , The condition of the patient is such that there exists a normal inability to leave home and consequently, leaving home would require a considerable and taxing effort. Isolation Type: None Diet Recommendation: no restrictions on diet Diet Texture: Regular Texture Diet Additional Instructions: Resume activity as tolerated. Follow up with your primary care provider. Stop taking lithium. This medication should be listed as an allergy. resume all other medications as prescribed. - Follow Up Care Current Providers and Referrals: Janny Mcguire PA [Primary Care Provider] - As per Instructions
--- NOTE | 2018-05-23 12:09 | ASMTLACE ---
LACE Length of stay for Answers: 2 days current admission Acuity / Level of Answers: Yes Care: Did the patient have an inpatient admission? Comorbidities - select Answers: Moderate or severe liver all that apply or renal disease Opioid dependence / Chronic pain Other Notes: HTN; Hypothyroid; OCD # of Emergency department Answers: 1-2 visits in the last 6 months Social determinants Answers: Mental health diagnosis (anxiety, depression, pers onality disorders, etc.) Lack of community resources and/or lack of social support (no pcp, lives alone, transportation, aptrick d) Score: 22 Date Signed: 05/23/2018 12:08 PM Electronically Signed By:Tiffanie Castellanos
--- NOTE | 2018-05-23 13:59 | ASMTDCNOTE ---
Case Management Discharge Discharge Order Complete? Answers: Yes Transportation Arranged Answers: Other Notes: [facility] will Pick (Date 05/23/2018 12:30 PM & Time) Faxed Final Orders Answers: Yes Agency/Facility Transfer Answers: Yes Report Printed & Faxed to Receiving Agency Family Notified Answers: No Notes: none Discharge Comments Notes: Pt to discharge home with [facility] RN/PT. [facility] RN supply controller notified by phone. [facility] called and notified of pt's discharge today, meals to start Friday or Friday. Pt given information regarding follow up appointment at the [facility]. Pt's lining caser Kedar at [facility] also notified by voicemail of pt's discharge. Pt is tearful and concerned about discharging alone, but was comforted by RN that home RN would be by to check on him soon. Transportation home was arranged from [facility] service. No further CM needs noted at this time. CM available should needs arise. Date Signed: 05/23/2018 01:58 PM Electronically Signed By:Tiffanie Castellanos
--- NOTE | 2018-05-23 13:59 | ASDISCHSUM ---
Discharge Information Plan Status:Home with Home Health Medically Cleared to Leave:05/22/2018 Discharge Date:05/23/2018 01:20 PM CM D/C Disposition:Home Health Service [facility] D/C Disposition:[id number] Projected Discharge Date:05/23/2018 11:00 AM Transportation at D/C:Medicaid Transportation Discharge Delay Reason: Follow-Up Date:05/23/2018 11:00 AM Discharge Slot: Final Diagnosis:Milbank toxicity Placement Information Referral Type:*Home Health Care Services Referral ID:[id number] Provider Name:[facility] Care Address 1:[address] [place] [address] Address 2: City:[place] Selection Factors: State:[place] Patient Contact Information Contact Name:GERSON Relationship:Other Address: Work Phone: [place] [facility] [place] Phone: [facility] Code: Email: Financial Information Financial Class:Medicare Primary Plan Desc:MEDICARE INPATIENT Primary Plan Number:[id number] Secondary Plan Desc:MEDICAID [place] Secondary Plan Number:[id number] Assessment Information LACE LACE Length of stay for Answers: 2 days current admission Acuity / Level of Answers: Yes Care: Did the patient have an inpatient admission? Comorbidities - select Answers: Moderate or severe liver all that apply or renal disease Opioid dependence / Chronic pain Other Notes: HTN; Hypothyroid; OCD # of Emergency department Answers: 1-2 visits in the last 6 months Social determinants Answers: Mental health diagnosis (anxiety, depression, pers onality disorders, etc.) Lack of community resources and/or lack of social support (no pcp, lives alone, transportation, patrick d) Score: 22 Date Signed: 05/23/2018 12:08 PM Electronically Signed By:Tiffanie Castellanos [facility] CM Progress Note CM Note CM Note Notes: Patient admitted with tremors and weakness which he attributed to newly prescribed Mil[place]. He discontinued the drug a few days ago. He has a history of HTN and OCD. Neurology to consult. Patient lives independently. He has a CM with [facility], [place]. He is normally independent in ADLs, and his PCP is Janny Mcguire at [facility]. Discharge needs are TBD but will likely need a f/u appt at [facility] for med management/adjustment. Case Management will follow. Date Signed: 05/21/2018 02:01 PM Electronically Signed By:Mary Ann Nelson RN [facility] Progress Note CM Note CM Note Notes: ESTELA met with Negro to discuss discharge planning. He reports that he is feeling stronger and would feel comfortable being discharged tomorrow, Friday. ESTELA discussed plan with MD. CM submit referral for [facility] (PT/OT/RN), provided with access information. Pt agreeable to [facility] [employer] [facility], ESTELA provided pt with information and pt will call to arrange. Pt reports he has a bus pass and would be ok discharging and transporting himself home on the bus. ESTELA spoke with pt's bottle caser at [facility] ([place] [phone]) who would like to be alerted via voicemail when pt is getting discharged. ESTELA provided Kedar with updates and needs for following-up with MD recommendations for neurology f/u. ESTELA scheduled pt a follow-up at [facility] with his PCP, Janny Conner for 06/04/18 at 2:40pm with check-in at 2:25pm. Plan: Home with [facility] Date Signed: 05/22/2018 12:11 PM Electronically Signed By:MARCELA Mccoy Case Management Discharge Plan Note Case Management Discharge Discharge Order Complete? Answers: Yes Transportation Arranged Answers: Other Notes: [facility] will Pick (Date 05/23/2018 12:30 PM & Time) Faxed Final Orders Answers: Yes Agency/Facility Transfer Answers: Yes Report Printed & Faxed to Receiving Agency Family Notified Answers: No Notes: none Discharge Comments Notes: Pt to discharge home with [facility] RN/PT. [facility] RN environmental compliance inspector notified by phone. [facility] called and notified of pt's discharge today, meals to start Friday or Friday. Pt given information regarding follow up appointment at [facility]. Pt's bottle caser Kedar at [facility] also notified by voicemail of pt's discharge. Pt is tearful and concerned about discharging alone, but was comforted by RN that home RN would be by to check on him soon. Transportation home was arranged from [employer] service. No further CM needs noted at this time. CM available should needs arise. Date Signed: 05/23/2018 01:58 PM Electronically Signed By:Tiffanie Castellanos Intervention Information Intervention Type:*TATYANA-Signed Date of Service:05/21/2018 11:32 AM Patient Type:Observation Staff Member:Sana Putnam Hours: Discipline: Severity: Comment: Intervention Type:*IM-Signed Date of Service:05/22/2018 03:06 PM Patient Type:Inpatient Staff Member:Sana Putnam Hours: Discipline: Severity: Comment:
--- NOTE | 2018-05-23 15:58 | PDDCSUM ---
Discharge Summary Discharge Summary: 58 year old male with pmh of OCD, hypothyroid admitted with ataxia and progressive tremor and subjective weakness and LILLY. He had started taking lithium about a month ago and his tremor developed shortly afterwards and became progressively worse. An MRI brain was obtained which was essentially normal. Neurology was consulted who felt that his symptoms were due to lithium toxicity. His renal function returned to normal with fluids and cessation fo the lithium. His tremor and ataxia were still present but substantially diminished. He was discharged home with home health to follow up with his PCP in good condition. 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
== END 2018-05-23 13:20 | disposition home health service (06) | DRG 700 ==
LOC: F3E 20:48 → OBSVTOIN 05-21 14:56
PROVIDERS: ADMIT Internal Medicine; ATTEND Internal Medicine
DX: N14.1 Nephropathy induced by other drugs, medicaments and biological substances (principal); E87.5 Hyperkalemia; G25.1 Drug-induced tremor; R26.0 Ataxic gait; R53.1 Weakness; T43.8X5A Adverse effect of other psychotropic drugs, initial encounter; F42.9 Obsessive-compulsive disorder, unspecified; I10 Essential (primary) hypertension; E03.9 Hypothyroidism, unspecified; G62.9 Polyneuropathy, unspecified; Z87.891 Personal history of nicotine dependence; Z96.659 Presence of unspecified artificial knee joint
CPT/HCPCS: 82435-PO; 82565-PO; 82947-PO; 84132-PO; 84295-PO; 84484-ER; 84520-PO; 85014-ER; 92523-GN; 97116-GP; 97162-GP; 97166-GO; 97535-GO; G0378; J1644

== ENCOUNTER 2018-08-28 14:30 | Inpatient (IN) | payer OTHER, MEDICAID ==
[2018-08-28] MEDS ORDERED: MAG HYDROX/AL HYDROX/SIMETH 30 ML UDCUP PO PRN (14:52)
[2018-08-28] MEDS ORDERED: MAGNESIUM HYDROXIDE 30 ML UDCUP PO PRN (14:52)
[2018-08-28] MEDS ORDERED: oxyCODONE IR 5 MG TAB PO ONE ×2 (16:30→17:00)
--- NOTE | 2018-08-28 17:02 | BAPA ---
[f rep st] ADMISSION PSYCHIATRIC ASSESSMENT DATE OF SERVICE: 08/28/2018 CHIEF COMPLAINT: "I just can't take care of myself." HISTORY OF PRESENT ILLNESS: Patient is a 58-year-old male with a history of treatment-resistant depression, obesity, COPD, obstructive sleep apnea, severe and debilitating osteoarthritis with a related chronic pain syndrome. He began acute-course ECT on 08/21/2018, and has had 4 treatments so far. In this time, he has noticed no specific benefit for his mood, but has had some significant cognitive disruption. He lives alone in an apartment and has a next door neighbor who is his support person. He also can use the intercom to call down to the desk if needed. He states, however, that he has been struggling to communicate effectively with others, feeling out of place and not himself. He describes a quasi-dissociative sensation and states that this is interfering with his ability to ask for help if he needed it. He does also admit that he "isn't somebody who likes to ask for help." He states that this is making him afraid and anxious, and that his thoughts of suicide have actually increased. The patient states, "I just can't go on living like this." When he presented for treatment 2 days ago, I discussed this with him at that time and he stated that he would attempt to continue on as an outpatient, but then this morning stated that he could not do that and that his thoughts of suicide were increasingly prominent. I had then offered him the possibility of inpatient hospitalization to at least begin the ECT until he got feeling better , and he accepted. A full description of his depression and his previous treatments can be found in his mental health assessment/outpatient ECT evaluation dated 08/13/2018. PAST PSYCHIATRIC HISTORY: Patient sees a psychiatrist named Dr. Cardona at [facility], who is a art consultant. He does not have a current therapist. He has been treated with numerous previous psychotropic medications, none of which have been consistently effective for him. These have included Abilify, Rexulti , Latuda, Seroquel, and numerous antidepressants including Paxil, Celexa, Zoloft , Effexor, Cymbalta, Wellbutrin, amitriptyline, and lithium and carbamazepine as well. He has had no previous psychiatric hospitalizations or suicide attempts. ALLERGIES: No known medical allergies, though he did have a sensitivity and renal toxicity to [place]. CURRENT MEDICATIONS: Oxycodone 15 mg q.i.d., Viibryd 40 mg daily, quinapril 40 mg daily, gabapentin 400 mg daily, levothyroxine 50 mcg daily, trazodone 300 mg at h.s., and ibuprofen 600 mg t.i.d. PAST MEDICAL HISTORY: Significant for 2 total knee replacements and 3 separate surgeries to attempt big toe fusions that were unsuccessful. He has chronic pain in his feet and knees, sleep apnea, and hypothyroidism. SOCIAL HISTORY: Patient has been on Social Security Disability income since 2011 due to his arthritis. Prior to that, he held a number of different jobs in different [place]. These are outlined in detail in his previous evaluation. 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 He has no current primary supports, though he feels supported by friends in his apartment complex. He is a after his of cancer 4 years into their marriage when patient was in his 30s. FAMILY HISTORY: The patient has very little family history, as he did not know his father and his mother was also an orphan. She at 39 due to some form of cardiac problem. ADMISSION LABORATORY: Pending. MENTAL STATUS EXAMINATION: Reveals an obese male. He is somewhat unkempt, though appropriately dressed. His affect is restricted, anxious, tearful at times, stable, and appropriate. His mood is described as "really depressed." His thought process is linear and goal directed. His thought content reveals no evidence of psychosis. He is alert and oriented to person, place, time, situation and his sensorium is clear. His intellect appears to be above average, as evidenced by his educational and occupational histories, fund of knowledge, and vocabulary. He continues to endorse thoughts of suicide without specific plan, though stating that he feels unsafe due to the strong desire to act on this. His insight and judgment appear to be good. IMPRESSION: Major depressive disorder, recurrent, severe with treatment- resistant features; obesity; chronic pain; osteoarthritis; chronic obstructive pulmonary disease and obstructive sleep apnea; hypothyroidism; social isolation ; lack of natural supports; chronic illness. Patient is a 58-year-old male with a history of severe treatment- resistant depression. He has multiple complicating and concomitant medical illnesses, though he does appear to have a primary major depression. We have just begun an acute course of electroconvulsive therapy, and he has had some significant cognitive issues. He also has ongoing medical issues and feels like he cannot care for himself at home. This, coupled with his increasing suicidality, seems to compel inpatient treatment at this time. The patient is agreeable to this, and states he will feel safer and more supported in the hospital. PLAN: 1. Admit to the behavioral health services inpatient unit on a voluntary basis. 2. Continue current outpatient medications. 3. We will monitor patient's pain and try to get a handle on this, as it seems to be a very prominent issue for him. We will contact his outpatient provider, though at this point, the PA from [facility] is the primary prescriber so we may attempt to get a pain management consult. 4. We will continue acute-course ECT on a Friday, Friday, Friday basis while the patient is in the hospital. 5. We will work with the patient in individual, group, and milieu psychotherapy to try to address the sources of his suicidality and depression. Estimated length of stay is 7 to 10 days. /[id number]/MODL MTDD
[2018-08-28] MEDS: ALBUTEROL 60 PUFFS/8 GM MDI IH PRN (21:10)
[2018-08-28] MEDS: GABAPENTIN 400 MG CAP PO SCH (21:10)
--- NOTE | 2018-08-28 21:25 | ASMTTLCEVL ---
TLC Evaluation - Basic Information Evaluation Start Date and 08/28/2018 07:45 PM Time Hospital Status Answers: Voluntary Patient statement Notes: "I just can't take care of myself." Narrative Notes: Pt is a 58 y/o Caucasianmale with a history of treatment resistant depression. He began acute-course ECT treatment on 08/21/2018 and has had 4 treatment. He has had no significant improvement to his mood and has had significant cognitive disruption. He lives alone in an apartment but does have a support person next door and can use the intercom to reach the front desk officer for assistance. He reports that it has been difficult to communicate effectively with others and has been feeling"not himself". He has been feeling increasingly anxious and today reported increasing suicidal thoughts. Diagnosis History Notes: Pt sees a psychiatrisst Dr. Cardona at [facility] who is a Consultatn. H oe not have a current therapist He has been treate with numerou psychotropic medications noneof which have been consistently effective. Pt has never had a prior psychiatric hospitalization or made a suicid attempt. Prior suicide attempts Notes: none reported Prior hospitalizations Notes: none reported Treatment Responses Notes: Pt has been treated with Abilify, rexulti, Latuda, Seroquel, Paxil, Celexa, Zoloft, Effexor, Cymbalta, Wellbutrrin, Amitripty line, lithium and Tegretol with no major improvements. History of violence Notes: None reported Psychiatrist: Dr. Cardona Medications (name, dosage, route, freq uency) Notes: Oxycodone 15 mg QID; Viibryd 40 m daily; quinapril 40 mg daily; gabapentin 400mg daily; levothyroxine 50 mcg daily; trazadone 300 mg HS; ibuprofen 600 mg TID Allergies/Reaction Notes: No known allergies - [place] sensitivity Sleep Notes: unknown Appetite Notes: unknown Medical/Surgical history Notes: Significant for 2 total knee replacements and 3 surgeries to to attempt big toe fusions - unsuccesful. He has chronic pain in his feet and knees; Hypothyroidism; Sleep Apne Substance use history (frequency, intensity, his tory, duration) Notes: None reported Family composition Notes: Pt reports that his parents are Need for family Answers: No participation in patient's care Family psychiatric/substance abuse history Notes: Pt was orphaned at an early age and does not know his family history. Developmental history Notes: Unknown Abuse concerns Answers: None Marital status/children Notes: Single Living situation Notes: Lives in a supportive apartment Sexual history/orientation Notes: unknown Peer support/family strengths Notes: unknown Education level/history Notes: Unknown Work history Notes: Pt is on [employer] Disability Notes: NA Legal Notes: NA Amish/Spiritual Notes: unknown Leisure Notes: Unknown Collateral Notes: Past Psychiatric records Patient's strengths Answers: Motivated for Treatment (Please select at least TWO strengths): Willingness [facility] Evaluation - Mental Status Exam Appearance: Answers: Appropriate Unkempt Mood: Answers: Depressed Sad Affect: Answers: Anxious Behavior: Answers: Appropriate Cooperative Crying Speech: Answers: Relevant Logical Thought Process: Answers: Organized Oriented Insight: Answers: Fair Judgement: Answers: Fair Depression Answers: Crying Spells Signs/Symptoms: Difficulty Concentrating Diminished Interest Diminished Pleasure Sad Mood Anxiety Signs/Symptoms Answers: Generalized Anxiety Hallucinations: Answers: None Pt reported to have Answers: Yes suicidal/self-injuring ideation/behavior? Pt reported to be making Answers: No suicidal/self-injuring threats? Pt reported to have Answers: No aggression/assault ideation/behavior? Pt reported to be making Answers: No aggression/assault threats? Pt exhibits inability to Answers: Yes care for self/grave disability? Ideation/behavior is Answers: No chronic? Patient has a specific Answers: No plan? Ideation has Answers: No delusional/hallucinatory content? History of Answers: No suicidal/self-injuring ideation, behavior, or threats? History of Answers: No aggressive/assaultive ideation, behavior, or threats? History of serious Answers: No physical harm to self/others while in treatment setting? [facility] Evaluation - Suicide/Homicide Risk Suicide Risk Factors: Answers: < 20 or > 40 Years of Age Anhedonia Lack of Social Support Lack/Loss of Employment Major Depression Serious Health Issue, Pain Single Homicide/violence risk Answers: None factors: Current Suicidal Answers: Yes Ideation? Current Suicidal Ideation Answers: Yes in the Past 48 Hours? Suicide Internal Answers: Absence of Psychosis Protective Factors: Suicide External Answers: Positive Therapeutic Protective Factors: Relationships Ranking of patient's Answers: Low suicidal risk: Ranking of patient's Answers: Low homicidal risk: [facility]LC Evaluation - Wrap-up AXIS I Diagnosis (include DSM-V and ICD-10 codes), must also be entered in [employer], which is the source of truth. Notes: 296.33 (F33.2) Major Depressive Disorder, Severe, Recurrent Evaluation End Date and 08/28/2018 09:20 PM Time (HH:KISHA): Date Signed: 08/28/2018 09:24 PM Electronically Signed By:Pennie Muller
[2018-08-28] MEDS: oxyCODONE IR 5 MG TAB PO SCH (21:26)
--- NOTE | 2018-08-28 21:26 | ASMTLCPROG ---
Notes Note: Notes: This 58 y/o male ECT pt was admitted directly to the unit as a Voluntary Patient per Dr. Winchester. Date Signed: 08/28/2018 09:26 PM Electronically Signed By:Pennie Muller
[2018-08-28] MEDS: FLUTICASONE/SALMETER 250/50MCG DISKUS IH SCH (22:06)
[2018-08-28] MEDS ORDERED: NALOXONE HCL 0.4 MG/ML INJ NASAL PRN (22:15)
[2018-08-28] MEDS: MELATONIN 3 MG TAB PO SCH (22:52)
[2018-08-28] MEDS: LORazepam 0.5 MG TAB PO PRN (23:41)
[2018-08-29] MEDS: oxyCODONE IR 5 MG TAB PO SCH ×4 (07:02→21:13)
[2018-08-29] MEDS: IBUPROFEN 600 MG TAB PO SCH ×3 (09:25→17:58)
[2018-08-29] MEDS: LISINOPRIL 40 MG TAB PO SCH (09:25)
[2018-08-29] MEDS: GABAPENTIN 400 MG CAP PO SCH ×3 (09:25→21:13)
[2018-08-29] MEDS: LEVOTHYROXINE 50 MCG TAB PO SCH (09:25)
[2018-08-29] MEDS: ALBUTEROL 60 PUFFS/8 GM MDI IH PRN ×2 (09:26→17:58)
[2018-08-29] MEDS: FLUTICASONE/SALMETER 250/50MCG DISKUS IH SCH ×2 (09:26→21:12)
[2018-08-29] MEDS: VILAZODONE HCL 40 MG PO SCH (09:47)
--- NOTE | 2018-08-29 12:38 | PDMN ---
Medical Necessity Medical necessity: Pt meets IP criteria per & MARTINA [id number]; est los >2 mn for eval/tx of recurrent treatment-resistant major depressive disorder; admit for further monitoring, safety, ECT & med management ; hx acute-course ECT beginning 08/21/18 x4 treatments, chronic pain; per H&P & order 08/28/18
--- NOTE | 2018-08-29 14:32 | ASMTBHMTP ---
Master Treatment Plan Master Treatment Plan Answers: Depressed Mood without for: Suicidal Ideation Date: 08/29/2018 Diagnosis on Admission: Major Depressive Disorder, Recurrent, Severe Expected length of stay: 5-7 Days Reason for admission: Notes: Pt is a 58 y/o male with a history of treatment resistant depression. He began acute-course ECT treatment on 08/21/2018 and has had 4 treatment. He has had no significant improvement to his mood and has had significant cognitive disruption. He lives alone in an apartment but does have a support person next door and can use the intercom to reach the front desk attendant for assistance. He reports that it has been difficult to communicate effectively with others and has been feeling"not himself". He has been feeling increasingly anxious and today reported increasing suicidal thoughts. Patient's stated presenting problems: Notes: Pt. reports he came to the hospital to get ECT. Patient's goals for treatment: Notes: Pt. stated his goal is to get ECT. Patient's strengths: Notes: Pt. stated he is a "great worker". Identify supports outside of hospital: Notes: Pt. stated he has "nothing very much right now". Discharge criteria: Notes: Suicidal ideation will resolve and patient will have a plan to safely manage recurrent suicidal ideation. Initial disposition plan/considerations: Notes: Pt. stated he plans to return to his home. Pt. reports being on disability. Master Treatment Plan Required Signatures Psychiatrist signature: Answers: Psychiatrist: RN on-shift signature: Answers: RN: Patient signature: Answers: Patient: Date Signed: 08/29/2018 02:31 PM Electronically Signed By:Nalini Hargrove
[2018-08-29] MEDS ORDERED: ACETAMINOPHEN/ASA/CAFFEINE 1 EACH TAB PO PRN (15:41)
--- NOTE | 2018-08-29 15:47 | ASMTCMCOM ---
CM Note CM Note Notes: CC met with pt. to complete MTP. Pt. reports having ECT yesterday, and having a "massive headache" from it. Pt. stated this was the first time he had ECT. Pt. reports having MDD for the past 5 years. Pt. stated he is currently on disability. Pt. denied any current legal issues. Pt. reports drinking "just a little" alcohol. Pt. denied using THC and all other substances. Pt. reports this being his first hospitalization for mental health reasons. Pt. requested to get his personal radio to be able to listen to the news. Pt. reports having a difficult time communicating due to his headache, RN notified. Pt. presents as alert, anxious, tearful at times, somewhat passive, and cooperative. Staff report pt. sleeping 6.5 hours and being medication compliant. Pt. will have ECT on Friday. Date Signed: 08/29/2018 03:47 PM Electronically Signed By:Nalini Hargrove
--- NOTE | 2018-08-29 15:59 | GCON ---
[f rep st] CONSULTATION DATE OF CONSULTATION: 08/29/2018 This is a medicine consultation at the request of [facility] for general medical evaluation bal ybarra. CHIEF COMPLAINT: Patient states he needs his oxygen. HISTORY: This is a 58-year-old man with past medical history that includes hypertension, KARIN on CPAP , hypothyroid, and OCD, who is presenting to the psychiatric service with complaints that he is unabl e to take care of himself apparently. At the time of my evaluation, patient is very fixated on needi ng his oxygen and really is unable to answer many questions, so the majority of this history is obtai palomo per chart review. Per review of the chart, he has been undergoing ECT, has had 4 treatments, but really has not noticed much improvement in his mood and has also had some issues with cognitive dysf unction. He stated to the psychiatrist that he could not go on living this way. Apparently, he has been having increasing suicidal thoughts. He states that he also was unable to use his CPAP last nig ht and that this has led to worsening issues this morning. He otherwise denies any changes in his ch ronic issues. PAST MEDICAL HISTORY: 1. Includes KARIN on CPAP. 2. Asthma. 3. Hypertension. 4. Hypothyroid. 5. Osteoarthritis. 6. Morbid obesity. PAST SURGICAL HISTORY: Includes 2 total knee replacements and 3 toe surgeries. FAMILY HISTORY: The patient denies any significant family history. SOCIAL HISTORY: The patient is currently on disability. He is and lives alone. REVIEW OF SYSTEMS: 10-point review of systems obtained and negative except as per HPI. HOME MEDICATIONS: 1. Trazodone. 2. Oxycodone. 3. Viibryd. 4. Quinapril. 5. . 6. Melatonin. 7. Levothyroxine. 8. Ibuprofen. 9. Gabapentin. 10. Advair. 11. Albuterol. ALLERGIES: No known drug allergies. PHYSICAL EXAM: VITAL SIGNS: BP 143/67, heart rate 83, respiratory rate 20, O2 sats 91% on room air. Temperature is 37.2. GENERAL APPEARANCE: This is an obese man. He is awake and alert. He is in mild distress. EYES: Anicteric. HEENT: Oropharynx clear. CARDIOVASCULAR: Regular rate and rhyth m. No MRG. PULMONARY: Decreased breath sounds throughout. ABDOMEN: Obese, soft. EXTREMITIES: 2+ pitting edema, bilateral lower extremities. SKIN: Warm, dry, well perfused. PSYCH/NEURO: Oriented, anxious. CLINICAL DATA: Labs reviewed. CBC from May was unremarkable. Chemistry from May also showe d a BUN of 29, creatinine 1.2. Chest x-ray from March, personally reviewed, showing chronic mild airways disease. ASSESSMENT AND PLAN: This is a 58-year-old man with a mood disorder and sleep apnea, asthma, morbid obesity, presenting with suicidal ideation. 1. Suicidal ideation in the setting of severe treatment-resistant depression. He has been undergoin g ECT without improvement. He is being admitted as he is now unable to manage his life due to both t he depression and some cognitive issues. We will defer treatment of this to the psychiatric service and no concerns regarding his care at this time. 2. Obstructive sleep apnea. Patient with relatively severe sleep apnea it sounds like, and he shoul d be maintained on his CPAP with 2 L of oxygen at night. 3. Hypoxia. The patient has mildly low oxygen levels with some associated shortness of breath. Oxy gen p.r.n. sats lower than 88%. 4. Reactive airways disease without evidence of acute exacerbation. 5. Lower extremity edema. This is likely secondary to his KARIN and likely concurrent OHS. This shou ld be followed up as an outpatient. 6. Hypothyroid. Continue his levothyroxine. 7. Osteoarthritis. Continue his current pain medications. 8. Inpatient status. Thank you for this consultation. Medicine will be available peripherally should questions arise mike newman this hospitalization. /[id number]/MODL
--- NOTE | 2018-08-29 18:14 | SOAPPROG ---
SOAP Progress Note Assessment/Plan: Assessment: 58 yo man with TRD has been receiving outpatient ECT, was admitted on 08/28/18 d/ t worsening sxs. Plan: 08/29/18 18:[address] Winchester has been prescribing meds for patient during his acute course of outpatient ECT. He continued those same meds in hospital. 2. Patient is c/o severe PERDUE since ECT on 08/28/18. He reports significant improvement (from 9/10 to 5/10) after Oxycodone and Ibuprofen this afternoon, but is still requesting "something else" from MD. After reviewing med records, MD decided to add Excedrin for PERDUE, since patient is already on high dose of oxycodone IR for other chronic pain issues, as well as high dose of ibuprofen. Patient also admits that he has been under "a lot of stress" since his admission because hospital is "not what I expected" and he doesn't like being monitored and closely supervised. He also didn't get to use his CPAP last night. MD suggested that there are several reasons for patient to have tension/ stress-related PERDUE today. MD further explained that opiates have not been shown to be effective at treating PERDUE's of any kind. Patient agreed to try Excedrin PRN. 3. Patient has CPAP ready to use tonight. 4. Patient told MD, "I'm not suicidal." 5. Continue with ECT next week. Subjective: Patient is sitting in rocking chair c/o severe PERDUE. Patient admit he's felt "a lot of stress" because he doesn't want to be in hospital. He says, "I had no idea it was going to be like this." He doesn't like staff checking on him q15 min. explained this was for patient's safety and wellbeing. He said he understood, but denied any SI in hospital. Objective: Vital Signs Temp Pulse Resp BP Pulse Ox 37.2 C 83 20 143/67 H 91 L 08/29/18 06:00 08/29/18 06:00 08/29/18 06:00 08/29/18 06:00 08/29/18 06:00 MSE: Affect: Frustrated, impatient Mood: "OK" TP: Linear TC: Denies any SI/ HI Insight/Judgment: Fair - Time Spent With Patient Time Spent With Patient: 15" - Pending Discharge Pending Discharge Within 24 Hours: No Pending Discharge Within 48 Hours: No ICD10 Worksheet Patient Problems: Problems Problem Status Onset Major depressive disorder, recurrent episode, severe Acute Asthma Active Essential hypertension Active Hypoxia Active Narcotic drug user Active Obesity Active Obstructive sleep apnea syndrome Active Ataxia Acute Osteoarthritis of knee Acute Renal insufficiency Acute Tremor Acute
[2018-08-29] MEDS: MELATONIN 3 MG TAB PO SCH (21:13)
[2018-08-30] MEDS: LORazepam 0.5 MG TAB PO PRN ×2 (04:07→09:30)
[2018-08-30] MEDS: ALBUTEROL 60 PUFFS/8 GM MDI IH PRN (04:10)
[2018-08-30] MEDS: oxyCODONE IR 5 MG TAB PO SCH ×2 (05:53→13:30)
[2018-08-30 06:46] VITALS: BP 142/79
[2018-08-30] MEDS: IBUPROFEN 600 MG TAB PO SCH ×2 (08:12→13:30)
[2018-08-30] MEDS: VILAZODONE HCL 40 MG PO SCH (08:13)
[2018-08-30] MEDS: LISINOPRIL 40 MG TAB PO SCH (08:13)
[2018-08-30] MEDS: GABAPENTIN 400 MG CAP PO SCH (08:13)
[2018-08-30] MEDS: LEVOTHYROXINE 50 MCG TAB PO SCH (08:14)
[2018-08-30] MEDS: FLUTICASONE/SALMETER 250/50MCG DISKUS IH SCH (08:15)
[2018-08-30] MEDS ORDERED: ALBUTEROL 3 ML DEYVIAL ONE (09:17)
[2018-08-30] MEDS ORDERED: ALBUTEROL 3 ML DEYVIAL IH PRN (09:20)
[2018-08-30] MEDS ORDERED: ALBUTEROL 3 ML DEYVIAL IH ONE (09:20)
--- NOTE | 2018-08-31 02:32 | BDS ---
[f rep st] BEHAVIORAL HEALTH DISCHARGE SUMMARY REASON FOR ADMISSION: Patient is a 58-year-old man with a history of treatment resistant d epression, obesity, COPD, obstructive sleep apnea, osteoarthritis, and chronic pain. The patient beg an an acute course of ECT on 08/21/2018, has had 4 treatments. The patient has had significant cogni tive disruption and no specific benefit for his mood. He says that he has been struggling to communi annika with others, feeling out of place and not himself. He describes a quasi dissociative sensation, says it is interfering with his ability to ask for help if needed. The patient told his outpatient ECT provider Dr. Oneal Winchester, "I just can't go on living like this." The patient told Dr. Marcia calderon on 08/28/2018, that his thoughts of suicide were increasingly prominent. Dr. Winchester decided t hat for the patient's safety and stabilization that he needed inpatient hospitalization. ADMITTING DIAGNOSES: 1. Major depressive disorder, recurrent, severe, with treatment resistant features. 2. Obesity. 3. Chronic pain. 4. Osteoarthritis. 5. Chronic obstructive pulmonary disease. 6. Obstructive sleep apnea. 7. Hypothyroidism. 8. Social isolation, lack of natural support. 9. Chronic illness. The admitting physical examination was done by Jae Rodriguez. Please see Dr. Terry's note for further details. ADMISSION LABS: Pending. HOSPITAL COURSE: The patient was admitted on 08/28/2018. He was seen by this provider on 08/29/2018 . The patient was sitting in a rocking chair complaining of severe headache. He admits that he has felt "a lot of stress" because he does not want to be in the hospital. He told this MD, "I had no id ea it was going to be like this." He says that he does not like the staff checking on him every 15 m inutes. explained that this was for the patient's safety and well-being. He said he understood, but denied any suicidal ideation in the hospital. He is taking scheduled oxycodone IR 15 mg q.i.d. f or chronic pain and also ibuprofen 600 mg p.o. t.i.d. He said after taking his ibuprofen on Friday morning, his headache improved, but he requested "something else" from MD for his headache. The pat leilani was given Excedrin, which he said had good benefit. The patient says that he had a difficult ti me sleeping overnight on Friday, although staff reports that he slept 6 hours continuously. He oswald d critical care physician that "I didn't sleep very well." He was complaining of difficulty breathing on morning. The RN on duty spoke with the hospitalist, Dr. Rodriguez, who seen the patient on . She was concerned because the patient had pitting edema and also was having some respiratory d istress. He has a prior history of cardiac workups, which in the past have been negative. Dr. Az rendon felt that it would be prudent to send the patient to the emergency department for further evalua tion. The patient was sent to the emergency room for workup for the respiratory distress and sofy newman to emergency room physician who saw the patient, Shaina Norton, she diagnosed the patient with an asthma exacerbation and he was admitted to [address] [place] [address] for acute exacerbation of reactive airway disease and asthma, possibly viral versus allergic and was placed on DVT prophylaxis. The patient was schedu led to have ECT on Friday at 1300. The decision was made to reschedule his ECT and the patient was d ischarged from Inpatient [facility] to the med floor. CONDITION AT DISCHARGE: The patient was in fair condition. He was having difficulty breathing. He was on 4 L of oxygen and had some pitting edema, was otherwise stable. DISCHARGE MEDICATIONS: The patient was not given any medications upon discharge, as he was transferr ed from the emergency department onto the medical floor on [address] [place] [address] where his outpatient medication re gimen was continued as it had been while he was in Inpatient [facility]. He was given nebuliz er treatments, both on the Inpatient [facility], and received additional nebulizer treatment in the emergency department. DISCHARGE DIAGNOSES: 1. Major depressive disorder, recurrent, severe, with treatment resistant features. 2. Obesity. 3. Chronic pain. 4. Osteoarthritis. 5. Chronic obstructive pulmonary disease. 6. Obstructive sleep apnea. 7. Hypothyroidism. 8. Lack of support, social isolation, chronic illness. DISPOSITION: The patient was transported from Inpatient [facility] to the ED, subsequently ad mitted to the medical floor on [address] for further observation and stabilization. LEGAL COURSE: The patient was voluntary at the time that he was transferred to the emergency departm ent. /[id number]/MODL
== END 2018-08-30 09:30 | disposition still patient (30) | DRG 885 ==
LOC: BBEH 14:30
PROVIDERS: ADMIT Psychiatry & Neurology Psychiatry; ATTEND Psychiatry & Neurology Psychiatry
DX: F33.2 Major depressive disorder, recurrent severe without psychotic features (principal); J45.901 Unspecified asthma with (acute) exacerbation; J44.1 Chronic obstructive pulmonary disease with (acute) exacerbation; R06.03 Acute respiratory distress; E66.01 Morbid (severe) obesity due to excess calories; G47.33 Obstructive sleep apnea (adult) (pediatric); G89.29 Other chronic pain; M19.90 Unspecified osteoarthritis, unspecified site; E03.9 Hypothyroidism, unspecified; Z96.659 Presence of unspecified artificial knee joint
CPT/HCPCS: J7613

== ENCOUNTER 2018-08-30 10:07 | Inpatient (IN) | payer OTHER, MEDICAID ==
[2018-08-30] MEDS ORDERED: predniSONE 20 MG TAB PO ONE (10:31)
[2018-08-30] MEDS ORDERED: ALBUTEROL 3 ML DEYVIAL IH ONE ×2 (10:31→12:32)
[2018-08-30] MEDS ORDERED: IPRATROPIUM/ALBUTEROL 3 ML DEYVIAL IH ONE (10:31)
[2018-08-30] MEDS ORDERED: ACETAMINOPHEN 325 MG TAB PO ONE (10:32)
--- NOTE | 2018-08-30 10:32 | EDPHY ---
H & P Time Seen by Provider: 08/30/18 10:16 HPI/ROS: CHIEF COMPLAINT: Cough congestion and shortness of breath HISTORY OF PRESENT ILLNESS: Patient arrives from the inpatient psychiatric cotto having had 4 episodes of ECT treatment over the past couple of days. He has had about a day and half of worsening wheezing and shortness of breath. Feels he has had congestion in his throat and upper airway for the last 2 days. Symptoms are moderate, shortness of breath worse with exertion and lying down. Not associated with sputum production or hemoptysis or fever or chills or Chest pain. Symptoms moderate. REVIEW OF SYSTEMS: Eye: no change in vision ENT: Head congestion Cardiac: no chest pain or syncope Pulmonary: HPI Abdomen: no vomiting, diarrhea, abdominal pain Musculoskeletal: no back pain Skin: no rash Neuro: Headache for 3 days Constitutional: no fever : no urinary symptoms A comprehensive 10 point review of systems is otherwise negative aside from elements mentioned in the history of present illness. PAST MEDICAL HISTORY: Includes arthritis and hypothyroid, asthma, depression, hypertension Social history: Nonsmoker General Appearance: Alert and conversant, cooperative. Eyes: No scleral icterus. ENT, Mouth: Normal mucous membranes. Respiratory: Bilateral expiratory wheezing with some accessory muscle use. Cardiovascular: Regular rate and rhythm. Gastrointestinal: Abdomen is soft and non tender. Neurological: Alert, face symmetric, normal motor and sensory in extremities. Skin: Warm and dry, no rashes. Musculoskeletal: No peripheral edema. No calf tenderness. Psychiatric: Not agitated. Emergency Department course/MDM: Treated with oral prednisone and nebulizer treatments. Chest x-ray ordered. Likely viral exacerbation of asthma. 1232: Still wheezing, 90% saturation on room air. Additional nebulizer treatment, will add labs, IV magnesium. 1340: Feels better, less wheezing, 92% on room air. Still symptomatic in short of breath. Discussed with hospitalist who recommends admission instead of transfer back to mental health [facility]. Discussed with the patient who is in agreement. Smoking Status: Former smoker Constitutional: Initial Vital Signs Temperature (C) 37.2 C 08/30/18 10:10 Heart Rate 92 08/30/18 10:10 Respiratory Rate 18 08/30/18 10:10 Blood Pressure 160/88 H 08/30/18 10:10 O2 Sat (%) 94 08/30/18 10:10 O2 Delivery Mode Room Air Allergies/Adverse Reactions: No Known Allergies Allergy (Verified 05/20/18 17:40) Home Medications: Medication Instructions Recorded Levothyroxine [Synthroid 50 mcg 50 mcg PO DAILY 01/30/14 (*)] Albuterol [Proventil Inhaler HFA 2 puffs IH Q4 PRN 02/25/14 (*)] Quinapril HCl [Accupril 20 MG] 40 mg PO DAILY 02/25/14 Fluticasone/Salmeter 250/50Mcg 1 puffs IH BID 05/20/18 [Advair 250/50 (*)] oxyCODONE IR [Oxycodone Ir (*)] 15 mg PO QID 05/20/18 Gabapentin [Neurontin 400 MG (*)] 1,200 mg PO TID 08/20/18 Ibuprofen [Motrin (*)] 600 mg PO TIDMEAL 08/20/18 Melatonin [Melatonin 3 MG (*)] 6 mg PO HS 08/20/18 Naloxone HCl [Narcan] 4 mg NS ONCE PRN 08/20/18 Vilazodone HCl [Viibryd] 40 mg PO DAILY 08/20/18 traZODone [traZODONE 100MG (*)] 100 mg PO TID 08/20/18 Albuterol Hfa Anes Only [Proair 2 puffs IH QID #1 mdi 08/30/18 Hfa Icu (*)] predniSONE [prednisone 20mg (RX)] 20 mg PO Q12 #15 tab 08/30/18 Medical Decision Making - Diagnostics EKG Interpretation: 12-lead EKG interpreted by me; official reading is in computer system. My interpretation is sinus rhythm rate 90 no ischemic changes. Imaging Results: Imaging Impressions Chest X-Ray 08/30/18 10:32 Impression: Chronic airways disease. No superimposed pneumonia. Imaging: I viewed and interpreted images myself Differential Diagnosis: Differential diagnosis considered for shortness of breath including but not limited to pulmonary infectious process, COPD, asthma, pulmonary embolus and congestive heart failure. Consult/Admit Bed Type: rec'd admit to her 1348 - Data Points Laboratory Results: Laboratory Results 08/30/18 13:00 08/30/18 10:19 08/30/18 08/30/18 13:00 10:19 WBC 15.10 10^3/uL H 10^3/uL (3.80-9.50) RBC 4.56 10^6/uL 10^6/uL (4.40-6.38) Hgb 13.8 g/dL g/dL (13.7-17.5) Hct 42.7 % % (40.0-51.0) MCV 93.6 fL fL (81.5-99.8) MCH 30.3 pg pg (27.9-34.1) MCHC 32.3 g/dL L g/dL (32.4-36.7) RDW 14.5 % % (11.5-15.2) Plt Count 201 10^3/uL 10^3/uL (150-400) MPV 9.9 fL fL (8.7-11.7) Neut % (Auto) 80.1 % H % (39.3-74.2) Lymph % (Auto) 11.8 % L % (15.0-45.0) [place] % (Auto) 7.0 % % (4.5-13.0) Eos % (Auto) 0.3 % L % (0.6-7.6) Baso % (Auto) 0.3 % % (0.3-1.7) Nucleat RBC Rel Count 0.0 % % (0.0-0.2) Absolute Neuts (auto) 12.10 10^3/uL H 10^3/uL (1.70-6.50) Absolute Lymphs (auto) 1.78 10^3/uL 10^3/uL (1.00-3.00) Absolute Monos (auto) 1.05 10^3/uL H 10^3/uL (0.30-0.80) Absolute Eos (auto) 0.04 10^3/uL 10^3/uL (0.03-0.40) Absolute Basos (auto) 0.05 10^3/uL 10^3/uL (0.02-0.10) Absolute Nucleated RBC 0.00 10^3/uL 10^3/uL (0-0.01) Immature Gran % 0.5 % % (0.0-1.1) Immature Gran # 0.08 10^3/uL 10^3/uL (0.00-0.10) Sodium 139 mEq/L mEq/L (135-145) Potassium 4.9 mEq/L mEq/L (3.5-5.2) Chloride 106 mEq/L mEq/L (97-110) Carbon Dioxide 21 mEq/l L mEq/l (22-31) Anion Gap 12 mEq/L mEq/L (6-14) BUN 17 mg/dL mg/dL (7-23) Creatinine 0.9 mg/dL mg/dL (0.7-1.3) Estimated GFR > 60 Glucose 112 mg/dL H mg/dL (70-100) Calcium 9.6 mg/dL mg/dL (8.5-10.4) Medications Given: Discontinued Medications Acetaminophen (Tylenol) 650 mg PO EDNOW ONE Stop: 08/30/18 10:33 Last Admin: 08/30/18 10:44 Dose: 650 mg Albuterol (Proventil Neb) 3 ml IH EDNOW ONE Stop: 08/30/18 10:32 Last Admin: 08/30/18 11:08 Dose: Not Given Albuterol (Proventil Neb) 3 ml IH EDNOW ONE Stop: 08/30/18 12:33 Last Admin: 08/30/18 13:03 Dose: 3 ml Albuterol/Ipratropium (Duoneb) 3 ml IH EDNOW ONE Stop: 08/30/18 10:32 Last Admin: 08/30/18 11:09 Dose: Not Given Magnesium Sulfate (Magnesium Sulf 2 Gm (Premix)) 50 mls @ 50 mls/hr IV EDNOW ONE Stop: 08/30/18 13:31 Last Admin: 08/30/18 13:02 Dose: 50 mls Prednisone (Prednisone) 60 mg PO EDNOW ONE Stop: 08/30/18 10:32 Last Admin: 08/30/18 10:44 Dose: 60 mg Departure - Departure Disposition: [facility] Acute Clinical Impression: Acute bronchitis Qualifiers: Bronchitis organism: unspecified organism Qualified Code(s): J20.9 - Acute bronchitis, unspecified Exacerbation of asthma Qualifiers: Asthma severity: moderate Asthma persistence: unspecified Qualified Code(s): J45.901 - Unspecified asthma with (acute) exacerbation Condition: Good
--- NOTE | 2018-08-30 11:17 | CPEKG ---
Test Reason : OPEN Blood Pressure : / mmHG Vent. Rate : 090 BPM Atrial Rate : 090 BPM P-R Int : 134 ms QRS Dur : 088 ms QT Int : 341 ms P-R-T Axes : 020 -08 037 degrees QTc Int : 418 ms Sinus rhythm Confirmed by Keanu Altamirano ([id number]) on 08/30/2018 11:17:01 AM Referred By: Keanu Altamirano Confirmed By:Keanu Altamirano
[2018-08-30] MEDS ORDERED: MAGNESIUM SULF 2 GM/WATER 50 ML IV ONE (12:32)
[2018-08-30 13:14] LABS: PLATELET COUNT 201 10^3/uL (150-400)
[2018-08-30] MEDS ORDERED: ALBUTEROL 3 ML DEYVIAL IH PRN (13:48)
[2018-08-30] MEDS ORDERED: ONDANSETRON DISINTEGRATING 4 MG TAB PO PRN (13:48)
[2018-08-30] MEDS ORDERED: ONDANSETRON 4 MG/2 ML VIAL IVP PRN (13:48)
--- NOTE | 2018-08-30 14:25 | PDGENHP ---
History and Physical - Chief Complaint wheezing, SOB - History of Present Illness 58 yo male with h/o severe depression, currently admitted to inpatient [facility] for ECT, as well as RAD, KARIN and hypothyroid, presents to ED with SOB. He says his symptoms started 48 hrs ago, "since being in the behavioral health unit". He has a h/o childhood asthma and has an albuterol inhaler, which he rarely needs to use. He denies significant problems with seasonal allergies. He does have a headache and wet cough, but denies other upper respiratory symptoms such as congestion, sore throat. No fevers. No CP or pleuritic symptoms. He is a bit SOB afte walking to the bathroom. He was given his inhalers at the BEH unit and transferred to the ED, where he does not have hypoxemia. However, he was given several nebulizers and continues to wheeze. Thus, he is admitted for further management. History Information - Allergies/Home Medication List Allergies/Adverse Reactions: No Known Allergies Allergy (Verified 05/20/18 17:40) Home Medications: Levothyroxine [Synthroid 50 mcg (*)] 50 mcg PO DAILY 01/30/14 [Last Taken ] Albuterol [Proventil Inhaler HFA (*)] 2 puffs IH Q4 PRN 02/25/14 [Last Taken 07/03 12:00] Quinapril HCl [Accupril 20 MG] 40 mg PO DAILY 02/25/14 [Last Taken 05/20/18] Fluticasone/Salmeter 250/50Mcg [Advair 250/50 (*)] 1 puffs IH BID 05/20/18 [ Last Taken 05/19/18] oxyCODONE IR [Oxycodone Ir (*)] 15 mg PO QID 05/20/18 [Last Taken 05/19/18] Gabapentin [Neurontin 400 MG (*)] 1,200 mg PO TID 08/20/18 [Last Taken Unknown] Ibuprofen [Motrin (*)] 600 mg PO TIDMEAL 08/20/18 [Last Taken Unknown] Melatonin [Melatonin 3 MG (*)] 6 mg PO HS 08/20/18 [Last Taken Unknown] Naloxone HCl [Narcan] 4 mg NS ONCE PRN 08/20/18 [Last Taken Unknown] Vilazodone HCl [Viibryd] 40 mg PO DAILY 08/20/18 [Last Taken Unknown] traZODone [traZODONE 100MG (*)] 100 mg PO TID 08/20/18 [Last Taken Unknown] I have personally reviewed and updated: family history, medical history, social history, surgical history - Past Medical History hypertension Additional medical history: hypothyroid, OCD, nerve pain, KARIN on CPAP, LE edema - Surgical History Additional surgical history: knee replacements - Family History Positive for: non-pertinent - Social History Smoking Status: Former smoker Alcohol Use: None Drug Use: None Additional social history: [facility] independently[facility] Review of Systems Review of Systems: ROS: 10pt was reviewed & negative except for what was stated in HPI & below Physical Exam Physical Exam: Temp Pulse Resp BP Pulse Ox 36.9 C 89 18 133/90 H 93 08/30/18 12:00 08/30/18 14:12 08/30/18 14:12 08/30/18 14:12 08/30/18 14:12 Constitutional: no apparent distress, obese Eyes: PERRL Ears, Nose, Mouth, Throat: moist mucous membranes Cardiovascular: regular rate and rhythym Respiratory: no respiratory distress, reduced air movement, expiratory wheeze, bronchial breath sounds Gastrointestinal: normoactive bowel sounds, soft, non-tender abdomen Skin: warm Musculoskeletal: full muscle strength Neurologic: AAOx3 Psychiatric: interacting appropriately Lab Data & Imaging Review 08/30/18 13:00 08/30/18 10:19 WBC 15.10 10^3/uL (3.80-9.50) H 08/30/18 13:00 RBC 4.56 10^6/uL (4.40-6.38) 08/30/18 13:00 Hgb 13.8 g/dL (13.7-17.5) 08/30/18 13:00 Hct 42.7 % (40.0-51.0) 08/30/18 13:00 MCV 93.6 fL (81.5-99.8) 08/30/18 13:00 MCH 30.3 pg (27.9-34.1) 08/30/18 13:00 MCHC 32.3 g/dL (32.4-36.7) L 08/30/18 13:00 RDW 14.5 % (11.5-15.2) 08/30/18 13:00 Plt Count 201 10^3/uL (150-400) 08/30/18 13:00 MPV 9.9 fL (8.7-11.7) 08/30/18 13:00 Neut % (Auto) 80.1 % (39.3-74.2) H 08/30/18 13:00 Lymph % (Auto) 11.8 % (15.0-45.0) L 08/30/18 13:00 [place] % (Auto) 7.0 % (4.5-13.0) 08/30/18 13:00 Eos % (Auto) 0.3 % (0.6-7.6) L 08/30/18 13:00 Baso % (Auto) 0.3 % (0.3-1.7) 08/30/18 13:00 Nucleat RBC Rel Count 0.0 % (0.0-0.2) 08/30/18 13:00 Absolute Neuts (auto) 12.10 10^3/uL (1.70-6.50) H 08/30/18 13:00 Absolute Lymphs (auto) 1.78 10^3/uL (1.00-3.00) 08/30/18 13:00 Absolute Monos (auto) 1.05 10^3/uL (0.30-0.80) H 08/30/18 13:00 Absolute Eos (auto) 0.04 10^3/uL (0.03-0.40) 08/30/18 13:00 Absolute Basos (auto) 0.05 10^3/uL (0.02-0.10) 08/30/18 13:00 Absolute Nucleated RBC 0.00 10^3/uL (0-0.01) 08/30/18 13:00 Immature Gran % 0.5 % (0.0-1.1) 08/30/18 13:00 Immature Gran # 0.08 10^3/uL (0.00-0.10) 08/30/18 13:00 Sodium 139 mEq/L (135-145) 08/30/18 10:19 Potassium 4.9 mEq/L (3.5-5.2) 08/30/18 10:19 Chloride 106 mEq/L (97-110) 08/30/18 10:19 Carbon Dioxide 21 mEq/l (22-31) L 08/30/18 10:19 Anion Gap 12 mEq/L (6-14) 08/30/18 10:19 BUN 17 mg/dL (7-23) 08/30/18 10:19 Creatinine 0.9 mg/dL (0.7-1.3) 08/30/18 10:19 Estimated GFR > 60 08/30/18 10:19 Glucose 112 mg/dL (70-100) H 08/30/18 10:19 Calcium 9.6 mg/dL (8.5-10.4) 08/30/18 10:19 Visualized and Interpreted Chest x-ray results: Yes Chest X-Ray results: no infiltrate, other (peribronchial thickening / airway disease) Assessment & Plan Assessment: Acute exacerbation of RAD / asthma - possibly viral vs allergic trigger. Note his symptoms worsened since arriving to [facility], which is new construction. He is not hypoxemic. -duonebs, prn albuterol nebs -po prednisone, azithromycin -send viral PCR -add zyrtec for possible allergic trigger KARIN - home cpap Hypothyroidism - cont home levothyroxine dose once med rec completed Depression - admitted to inpt [facility] with SI and receiving ECT. He has ECT scheduled for tomorrow at 1300. Will keep NPO at midnight and if his condition stabilizes in am, could dc back to BEH. DVT PPLX - Lovenox Full code Dispo - obs
[2018-08-30] MEDS: AZITHROMYCIN 250 MG TAB PO SCH (15:08)
[2018-08-30] MEDS: CETIRIZINE 10 MG TAB PO SCH (15:08)
--- NOTE | 2018-08-30 15:13 | ASMTLACE ---
MOUNA Acuity / Level of Answers: No Care: Did the patient have an inpatient admission? Comorbidities - select Answers: Chronic pulmonary disease all that apply Opioid dependence / Chronic pain Other Notes: asthma, RAD, KARIN (on CPAP), hypothyroid, LE edema, knee replacements, nerve pain, OCD # of Emergency department Answers: 1-2 visits in the last 6 months Social determinants Answers: Mental health diagnosis (anxiety, depression, pers onality disorders, etc.) Lack of community resources and/or lack of social support (no pcp, lives alone, transportation, patrick d) Score: 15 Date Signed: 08/30/2018 03:13 PM Electronically Signed By:Valeria Marte RN
--- NOTE | 2018-08-30 15:28 | ASMTCMCOM ---
CM Note CM Note Notes: Pt brought into the ED via EMS for SOB, cough, and asthma exacerbation. Pt coming from the Inpatient Behavioral Unit at [facility]. Pt admitted there for depression and ECT treatment. Pt admitted for asthma exacerbation. Per 05/27/18 admission DC Summary, pt lives alone and was receiving HC RN/PT through [facility] at that time. Pt's PCP is Janny Mcguire at [facility]. Pt has a CM, Kedar ([phone]), through [facility]. Pt had also been provided Meals on Wheels at time of DC. Anticipate pt to stabilize and return to the Inpatient Behavioral Unit for further treatment and ECT, or to PA home and followup outpatient. CM to follow. Date Signed: 08/30/2018 03:26 PM Electronically Signed By:Valeria Marte RN
[2018-08-30] MEDS ORDERED: traZODone 100 MG TAB PO SCH (16:00)
[2018-08-30] MEDS: IBUPROFEN 600 MG TAB PO PRN (16:07)
[2018-08-30] MEDS: GABAPENTIN 400 MG CAP PO SCH ×2 (16:07→21:03)
[2018-08-30] MEDS: oxyCODONE IR 15 MG TAB PO SCH ×2 (16:08→21:04)
[2018-08-30] MEDS: IPRATROPIUM/ALBUTEROL 3 ML DEYVIAL IH SCH ×2 (16:14→21:21)
[2018-08-30] MEDS: hydrALAZINE 25 MG TAB PO PRN (17:54)
[2018-08-30] MEDS: ACETAMINOPHEN 325 MG TAB PO PRN (17:54)
[2018-08-30] MEDS: MELATONIN 3 MG TAB PO SCH (21:03)
[2018-08-30] MEDS: traZODone 100 MG TAB PO SCH (21:03)
[2018-08-30] MEDS: FLUTICASONE/SALMETER 250/50MCG DISKUS IH SCH (21:21)
[2018-08-31] MEDS: ACETAMINOPHEN 325 MG TAB PO PRN ×2 (05:12→15:33)
[2018-08-31] MEDS: oxyCODONE IR 15 MG TAB PO SCH ×4 (05:12→20:26)
[2018-08-31 05:24] LABS: PLATELET COUNT 186 10^3/uL (150-400)
[2018-08-31] MEDS: IPRATROPIUM/ALBUTEROL 3 ML DEYVIAL IH SCH ×4 (05:47→20:10)
[2018-08-31] MEDS ORDERED: predniSONE 20 MG TAB PO SCH (09:00)
[2018-08-31] MEDS: GABAPENTIN 400 MG CAP PO SCH ×3 (09:00→22:01)
[2018-08-31] MEDS ORDERED: ENOXAPARIN 40 MG/0.4 ML SYR SC SCH (09:00)
[2018-08-31] MEDS: CETIRIZINE 10 MG TAB PO SCH (09:01)
[2018-08-31] MEDS: AZITHROMYCIN 250 MG TAB PO SCH (09:01)
[2018-08-31] MEDS: LEVOTHYROXINE 50 MCG TAB PO SCH (09:01)
[2018-08-31] MEDS: LISINOPRIL 40 MG TAB PO SCH (09:01)
[2018-08-31] MEDS: Vilazodone Hcl [Viibryd] 40 MG PO SCH (09:07)
[2018-08-31] MEDS: FLUTICASONE/SALMETER 250/50MCG DISKUS IH SCH ×2 (09:56→20:11)
[2018-08-31] MEDS: IBUPROFEN 600 MG TAB PO PRN (12:01)
[2018-08-31] MEDS: hydrALAZINE 25 MG TAB PO PRN ×2 (12:09→22:02)
--- NOTE | 2018-08-31 13:37 | HOSPPROG ---
Hospitalist Progress Note Assessment/Plan: Acute exacerbation of RAD / asthma - Viral PCR neg. Note his symptoms worsened since arriving to [facility], which is new construction, query environmental / allergic trigger. He developed O2 requirement overnight, 2 LPM , intermittently on room air today. -cont scheduled duonebs, prn albuterol nebs -change to IV solumedrol 60 IV q6h given ongoing wheezing and SOB -cont zyrtec for possible allergic trigger, azithromycin for anti- inflammatory component -send d dimer KARIN - cont home cpap Hypothyroidism - cont home levothyroxine Depression - admitted to inpt [facility]H with SI and has been receiving ECT. He wants to cont ECT, but doesn't want to go back to BEH unit. Also notes he isn't capable or ready to dc home independently. -CM consult to assist with dispo planning DVT PPLX - Lovenox Full code Dispo - change to inpt for ongoing management of acute exacerbation of RAD / asthma Subjective: Pt continues to wheeze and feel SOB, especially with activity. Denies CP or pleuritic symptoms. Continues to feel like he had a trigger at the [facility]. No fevers/chills. Coughing a little. Denies orthopnea or PND. He doesn't want to return to inpt BEH, but also doesn't feel ready to go home. Wants to continue ECT, just not as an inpt. Objective: Vital Signs Temp Pulse Resp BP Pulse Ox 36.8 C 81 18 165/82 H 91 L 08/31/18 11:27 08/31/18 11:27 08/31/18 11:27 08/31/18 11:27 08/31/18 11:27 Microbiology 08/30/18 14:10 Respiratory Panel (PCR) - Final Nasal, Sinus - Other No Organism Detected By Pcr Laboratory Results 08/31/18 04:47 08/30/18 08/31/18 09/01/18 05:59 05:59 05:59 Intake Total 300 770 Output Total 400 Balance -100 770 - Physical Exam Constitutional: no apparent distress, obese Eyes: PERRL Ears, Nose, Mouth, Throat: moist mucous membranes Cardiovascular: regular rate and rhythym Respiratory: reduced air movement, expiratory wheeze, rhonchi Gastrointestinal: normoactive bowel sounds, soft, non-tender abdomen Skin: warm Musculoskeletal: full muscle strength Neurologic: AAOx3 Psychiatric: interacting appropriately, anxious ICD10 Worksheet Patient Problems: Problems Problem Status Onset Acute bronchitis Acute Exacerbation of asthma Acute Asthma Active Essential hypertension Active Hypoxia Active Narcotic drug user Active Obesity Active Obstructive sleep apnea syndrome Active Ataxia Acute Major depressive disorder, recurrent episode, severe Acute Osteoarthritis of knee Acute Renal insufficiency Acute Tremor Acute
[2018-08-31] MEDS: methylPREDNISolone SOD SUCC 125 MG/2 ML VIAL IVP SCH ×2 (15:00→20:26)
[2018-08-31] MEDS: ENOXAPARIN 40 MG/0.4 ML SYR SC SCH (20:26)
[2018-08-31] MEDS: MELATONIN 3 MG TAB PO SCH (22:02)
[2018-08-31] MEDS: traZODone 100 MG TAB PO SCH (22:02)
[2018-09-01] MEDS: methylPREDNISolone SOD SUCC 125 MG/2 ML VIAL IVP SCH ×4 (02:03→23:01)
[2018-09-01] MEDS: IPRATROPIUM/ALBUTEROL 3 ML DEYVIAL IH SCH ×4 (05:03→21:43)
[2018-09-01] MEDS: oxyCODONE IR 15 MG TAB PO SCH ×4 (06:00→21:17)
[2018-09-01] MEDS: AZITHROMYCIN 250 MG TAB PO SCH (08:14)
[2018-09-01] MEDS: LEVOTHYROXINE 50 MCG TAB PO SCH (08:14)
[2018-09-01] MEDS: LISINOPRIL 40 MG TAB PO SCH (08:14)
[2018-09-01] MEDS: GABAPENTIN 400 MG CAP PO SCH ×3 (08:15→21:16)
[2018-09-01] MEDS: CETIRIZINE 10 MG TAB PO SCH (08:17)
[2018-09-01] MEDS: Vilazodone Hcl [Viibryd] 40 MG PO SCH (08:17)
--- NOTE | 2018-09-01 08:21 | PDMN ---
Medical Necessity Medical necessity: Change to IP, as of 08/31/18, per MD & MCG M-60; los >2 mn for ongoing management of acute exacerbation of RAD/asthma possibly r/t environmental/allergic trigger during stay at [facility]; requiring further monitoring, respiratory supportive care & CM consult for dc planning; hx current hospitalization at [facility] BH unit for ECT tx (beginning ) of major depressive disorder w/SI
[2018-09-01] MEDS: ENOXAPARIN 40 MG/0.4 ML SYR SC SCH ×2 (08:26→21:18)
[2018-09-01] MEDS: IBUPROFEN 600 MG TAB PO PRN (08:29)
[2018-09-01] MEDS: FLUTICASONE/SALMETER 250/50MCG DISKUS IH SCH ×2 (10:18→21:43)
--- NOTE | 2018-09-01 10:40 | HOSPPROG ---
Hospitalist Progress Note Assessment/Plan: Acute exacerbation of RAD / asthma - Viral PCR neg. Note his symptoms worsened since arriving to [facility], which is new construction, query environmental / allergic trigger. On room air this am, but still wheezing and SOB. -cont scheduled duonebs, prn albuterol nebs -wean solumedrol to 60 IV q8h -cont zyrtec for possible allergic trigger, azithromycin for anti- inflammatory component KARIN - cont home cpap Hypothyroidism - cont home levothyroxine Depression - admitted to inpt [facility] with SI and has been receiving ECT. He wants to cont ECT, but doesn't want to go back to BEH unit. -CM following -I've reached out to Dr. Winchester to clarify plan once he is medically ready to return to [facility], unclear if he will resume ECT, pt certainly wants to Chronic pain / OA - cont home oxy IR DVT PPLX - Lovenox Full code Dispo - cont inpt, possible dc in am Subjective: Pt continues to have wheezing and SOB, off O2 this am. No fevers / chills. No chest pain or pleuritic symptoms. Slowly improving, but still worried he is not back to baseline. Objective: Vital Signs Temp Pulse Resp BP Pulse Ox 36.8 C 87 20 145/84 H 93 09/01/18 07:14 09/01/18 07:14 09/01/18 07:14 09/01/18 07:14 09/01/18 07:14 08/31/18 09/01/18 09/02/18 05:59 05:59 05:59 Intake Total 500 Balance 500 - Physical Exam Constitutional: no apparent distress Eyes: PERRL Ears, Nose, Mouth, Throat: moist mucous membranes Cardiovascular: regular rate and rhythym Respiratory: no respiratory distress, reduced air movement, expiratory wheeze Gastrointestinal: normoactive bowel sounds, soft, non-tender abdomen Skin: warm Musculoskeletal: full muscle strength Neurologic: AAOx3 Psychiatric: interacting appropriately ICD10 Worksheet Patient Problems: Problems Problem Status Onset Acute bronchitis Acute Exacerbation of asthma Acute Asthma Active Essential hypertension Active Hypoxia Active Narcotic drug user Active Obesity Active Obstructive sleep apnea syndrome Active Ataxia Acute Major depressive disorder, recurrent episode, severe Acute Osteoarthritis of knee Acute Renal insufficiency Acute Tremor Acute
[2018-09-01] MEDS: ACETAMINOPHEN 325 MG TAB PO PRN (11:47)
--- NOTE | 2018-09-01 13:23 | ASMTCMCOM ---
CM Note CM Note Notes: Chart and plan of care reviewed. Hospital medicine reached out to psychiatric provider regarding the patient being able to return to behavioral health and continuation of ECT. Plan f care unclear at this time. CM to follow for possible needs. Called his CM Kedar at [facility] [phone]. He was informed to anticipate dc tomorrow. Plan: Likely to dc to home independently when medically cleared for discharge. Date Signed: 09/01/2018 01:22 PM Electronically Signed By:Mirta Donovan RN
[2018-09-01] MEDS: hydrALAZINE 25 MG TAB PO PRN (15:55)
--- NOTE | 2018-09-01 16:18 | ASMTCMCOM ---
CM Note CM Note Notes: ADDENDUM: Per hospitalist, psychiatrist Florin is suggesting pt should discharge to home from hospital and follow up with psychiatry outpatient to discuss further treatment options. [facility] RN and SW is recommended by hospitalist and [facility] declined as they are not certified for psych nursing. Referral sent to [facility] which is reported to offer psych nursing support. CM to follow. D/C Plan: Home with HHC RN/SW Date Signed: 09/01/2018 04:17 PM Electronically Signed By:Tiffanie Castellanos
[2018-09-01] MEDS: LIDOCAINE 4%/MENTHOL 1% PATCH TD SCH (18:06)
[2018-09-01] MEDS ORDERED: PATCH REMOVAL 1 EA PATCH TD SCH (21:00)
[2018-09-01] MEDS: ACETAMINOPHEN 500 MG TAB PO SCH (21:16)
[2018-09-01] MEDS: MELATONIN 3 MG TAB PO SCH (21:16)
[2018-09-01] MEDS: traZODone 100 MG TAB PO SCH (21:16)
[2018-09-02] MEDS: oxyCODONE IR 15 MG TAB PO SCH ×2 (05:26→12:14)
[2018-09-02] MEDS: ACETAMINOPHEN 500 MG TAB PO SCH (05:27)
[2018-09-02] MEDS: IPRATROPIUM/ALBUTEROL 3 ML DEYVIAL IH SCH ×2 (05:28→09:10)
[2018-09-02 08:16] VITALS: BP 152/86
[2018-09-02] MEDS: methylPREDNISolone SOD SUCC 125 MG/2 ML VIAL IVP SCH (08:57)
[2018-09-02] MEDS: LISINOPRIL 40 MG TAB PO SCH (08:57)
[2018-09-02] MEDS: GABAPENTIN 400 MG CAP PO SCH (08:58)
[2018-09-02] MEDS: AZITHROMYCIN 250 MG TAB PO SCH (08:58)
[2018-09-02] MEDS: LEVOTHYROXINE 50 MCG TAB PO SCH (08:58)
[2018-09-02] MEDS: CETIRIZINE 10 MG TAB PO SCH (08:58)
[2018-09-02] MEDS: LIDOCAINE 4%/MENTHOL 1% PATCH TD SCH (08:59)
[2018-09-02] MEDS: ENOXAPARIN 40 MG/0.4 ML SYR SC SCH (09:00)
[2018-09-02] MEDS: Vilazodone Hcl [Viibryd] 40 MG PO SCH (09:00)
[2018-09-02] MEDS: FLUTICASONE/SALMETER 250/50MCG DISKUS IH SCH (09:10)
[2018-09-02] MEDS: IBUPROFEN 600 MG TAB PO PRN (09:39)
--- NOTE | 2018-09-02 10:40 | PDIAF ---
- Diagnosis Diagnosis: depression/anxiety Code Status: Full Code - Medication Management Discharge Medications: electronically signed and located in the Home Medication List. - Orders Services needed: Home Care, Registered Nurse, Master Assisted Living Administrator Home Care Face to Face: I certify that this patient was under my care and that I had the required [id number] encounter meeting the encounter requirements on the discharge day. My findings support the fact that the patient is homebound as defined in Home Care Face to Face Continued: CMS Chapter 7 Medicare Benefits Manual 30.1.1 , The condition of the patient is such that there exists a normal inability to leave home and consequently, leaving home would require a considerable and taxing effort. Isolation Type: None Diet Recommendation: no restrictions on diet - Follow Up Care Current Providers and Referrals: Janny Mcguire PA [Primary Care Provider] - As per Instructions Colin Winchester MD [Medical Doctor] -
--- NOTE | 2018-09-02 11:25 | ASMTDCNOTE ---
Case Management Discharge Discharge Order Complete? Answers: Yes Patient to Obtain Answers: Independently Medications Transportation Arranged Answers: Family/Friends Faxed Final Orders Answers: Yes Agency/Facility Transfer Answers: Yes Report Printed & Faxed to Receiving Agency Discharge Comments Notes: D/w , final orders faxed. Gene at [facility] notified. Pt arranging own transportation (his CM at [facility] apt will pickup). Date Signed: 09/02/2018 11:24 AM Electronically Signed By:Megan Zhou RN
--- NOTE | 2018-09-02 14:01 | GDS ---
[f rep st] DISCHARGE SUMMARY DISCHARGE DIAGNOSES: 1. Acute exacerbation of reactive airway disease. 2. Depression/anxiety. 3. Obstructive sleep apnea. 4. Hypothyroidism. HISTORY OF PRESENT ILLNESS: For details, please see history and physical dated August 30, 2018. In [facility], the patient is a 58-year-old male with a history of depression, anxiety who was transferred fro the inpatient Behavioral Health Unit to the emergency department due to wheezing and shortness of b reath. He required several nebulizer treatments and had ongoing wheezing, thus was admitted to [facility] for further management. HOSPITAL COURSE: Patient was admitted to the Medical/Surgical unit. Chest x-ray on admission did no t reveal any evidence of infiltrate or pneumonia. He did have moderate diffuse peribronchial thicken ing suggestive of chronic airway disease. He was treated with scheduled nebulizers, IV Solu-Medrol, azithromycin, and antitussive therapy. His symptoms improved. He briefly had an oxygen requirement of 2 L/minute, though he has been maintaining his sats greater than 89% on room air for the past 24 h ours prior to discharge. I discussed the case with Dr. Winchester and both patient and Dr. Winchester feel he is safe for discharge home with close outpatient followup with the psychiatric team to determine the next steps in his ther apy. He does not need to be readmitted to inpatient Behavioral Health, nor does he want to be. DISPOSITION: Patient is discharged home in stable condition with home health care RN, social work delio esposito. FOLLOWUP: 1. Dr. Oneal Winchester, Psychiatry. 2. Janny Mcguire, primary care. DISCHARGE MEDICATIONS: Please see Cmxtwenty for completed updated outpatient medication list. New me dications on discharge, include: 1. Prednisone 60 mg daily for 2 days, then 40 mg daily for 2 days, then off. 2. Zyrtec 10 mg daily #30, no refills. 3. Tylenol 1000 mg p.o. q.8 hours. 4. Albuterol inhaler 2 puffs inhaled q.i.d. #1, no refills. He will continue all other outpatient medications as previously prescribed. I recommend he stop ibup rofen while he is taking prednisone. /[id number]/MODL
--- NOTE | 2018-09-03 09:49 | ASDISCHSUM ---
Discharge Information Plan Status:Home with Home Health Medically Cleared to Leave: Discharge Date:09/02/2018 01:19 PM CM D/C Disposition:Home Health Service ADT D/C Disposition:Home, Routine, Self-Care Projected Discharge Date:09/02/2018 11:00 AM Transportation at D/C:Friend Discharge Delay Reason: Follow-Up Date:09/02/2018 11:00 AM Discharge Slot: Final Diagnosis: Placement Information Referral Type:*Home Health Care Services Referral ID:[id number] Provider Name:[facility] Address 1:[address] [address] Address 2: City:[place] Selection Factors: State:[place] Patient Contact Information Contact Name:MAIK Relationship:Other Address: Work Phone: City: [facility] Phone: [facility] Code: Email: Financial Information Financial Class:Medicare Primary Plan Desc:MEDICARE INPATIENT Primary Plan Number:[id number] Secondary Plan Desc:MED[place] Secondary Plan Number:[id number] Assessment Information LACE LACE Acuity / Level of Answers: No Care: Did the patient have an inpatient admission? Comorbidities - select Answers: Chronic pulmonary disease all that apply Opioid dependence / Chronic pain Other Notes: asthma, RAD, KARIN (on CPAP), hypothyroid, LE edema, knee replacements, nerve pain, OCD # of Emergency department Answers: 1-2 visits in the last 6 months Social determinants Answers: Mental health diagnosis (anxiety, depression, pers onality disorders, etc.) Lack of community resources and/or lack of social support (no pcp, lives alone, transportation, patrick d) Score: 15 Date Signed: 08/30/2018 03:13 PM Electronically Signed By:Valeria Marte RN [facility] CM Progress Note CM Note CM Note Notes: Pt brought into the ED via EMS for SOB, cough, and asthma exacerbation. Pt coming from the Inpatient Behavioral Unit at [facility]. Pt admitted there for depression and ECT treatment. Pt admitted for asthma exacerbation. Per 05/27/18 admission DC Summary, pt lives alone and was receiving HC RN/PT through [facility] at that time. Pt's PCP is Janny Mgcuire at [facility]. Pt has a CM, Kedar ([phone]), through [facility]. Pt had also been provided Meals on Wheels at time of DC. Anticipate pt to stabilize and return to the Inpatient Behavioral Unit for further treatment and ECT, or to DC home and followup outpatient. CM to follow. Date Signed: 08/30/2018 03:26 PM Electronically Signed By:Valeria Marte RN [facility] CM Progress Note CM Note CM Note Notes: Chart and plan of care reviewed. Hospital medicine reached out to psychiatric provider regarding the patient being able to return to behavioral health and continuation of ECT. Plan f care unclear at this time. CM to follow for possible needs. Called his CM Kedar at [facility] [phone]. He was informed to anticipate dc tomorrow. Plan: Likely to dc to home independently when medically cleared for discharge. Date Signed: 09/01/2018 01:22 PM Electronically Signed By:Mirta Donovan RN [facility] CM Progress Note CM Note CM Note Notes: ADDENDUM: Per hospitalist, psychiatrist Florin is suggesting pt should discharge to home from hospital and follow up with psychiatry outpatient to discuss further treatment options. [facility] RN and SW is recommended by hospitalist and [facility] declined as they are not certified for psych nursing. Referral sent to [facility] which is reported to offer psych nursing support. CM to follow. D/C Plan: Home with C RN/SW Date Signed: 09/01/2018 04:17 PM Electronically Signed By:Tiffanie Castellanos Case Management Discharge Plan Note Case Management Discharge Discharge Order Complete? Answers: Yes Patient to Obtain Answers: Independently Medications Transportation Arranged Answers: Family/Friends Faxed Final Orders Answers: Yes Agency/Facility Transfer Answers: Yes Report Printed & Faxed to Receiving Agency Discharge Comments Notes: D/w , final orders faxed. Gene at [facility] notified. Pt arranging own transportation (his CM at [facility] apt will pickup). Date Signed: 09/02/2018 11:24 AM Electronically Signed By:Megan Zhou RN Intervention Information Intervention Type:*TATYANA-Signed Date of Service:08/31/2018 10:45 AM Patient Type:Observation Staff Member:Walisundara, Shala Hours: Discipline: Severity: Comment:
--- NOTE | 2018-09-07 11:05 | PQFORM ---
PHYSICIAN QUERY FORM Needs Your Response This query form is being sent to you to assure this patient record is coded properly. Please respond to the question below: ORDER PROCESSOR QUESTION: Dr Norton A BMI of 43 has been noted on this patients chart. Is there a corresponding diagnosis to go along with this ? __ Obesity __X Morbid Obesity __ Other (Please Specify ) __ Unable to determine Thank You Liliya JOYNER Fisher Clam INSTRUCTIONS FOR RESPONSE: Answer question by clicking on the "Edit Document" button. Move cursor to area below the stars. When complete, hit "Save." Click on the "Sign" button, then click "Sign" again. Type in your PIN and hit "Enter." MTDD
== END 2018-09-02 13:19 | disposition home or self-care (01) | DRG 202 ==
LOC: EDUNIT# → F3E 15:24 → OBSVTOIN 08-31 15:54
PROVIDERS: ADMIT Hospitalist; ATTEND Hospitalist
DX: J45.901 Unspecified asthma with (acute) exacerbation (principal); E03.9 Hypothyroidism, unspecified; E66.01 Morbid (severe) obesity due to excess calories; Z68.41 Body mass index [BMI] 40.0-44.9, adult; F41.8 Other specified anxiety disorders; I10 Essential (primary) hypertension; G89.29 Other chronic pain; G47.33 Obstructive sleep apnea (adult) (pediatric); M19.90 Unspecified osteoarthritis, unspecified site; Z87.891 Personal history of nicotine dependence; Z96.653 Presence of artificial knee joint, bilateral
CPT/HCPCS: 96365; G0378; J1650; J2930; J3475; J7512; J7613

== ENCOUNTER 2018-09-09 20:45 | Inpatient (IN) | payer OTHER, MEDICAID ==
[2018-09-09] MEDS ORDERED: IPRATROPIUM/ALBUTEROL 3 ML DEYVIAL ONE (20:52)
[2018-09-09] MEDS ORDERED: IPRATROPIUM/ALBUTEROL 3 ML DEYVIAL IH ONE (20:52)
[2018-09-09] MEDS ORDERED: methylPREDNISolone SOD SUCC 125 MG/2 ML VIAL IVP ONE (20:52)
--- NOTE | 2018-09-09 21:06 | EDPHY ---
H & P Stated Complaint: Difficulty breathing x2 days, sputum, SOB Time Seen by Provider: 09/09/18 21:03 HPI/ROS: CHIEF COMPLAINT: Shortness of breath Limitations: Confusion HISTORY OF PRESENT ILLNESS: 58-year-old male with asthma presents with shortness of breath. He was admitted 2 weeks ago for asthma exacerbation. He was discharged home on albuterol, prednisone and antibiotics. He did not fill these prescriptions. Persistent cough and SOB since discharge. Worsening shortness of breath 2-3 days ago, associated with a productive cough and subjective fever. Tonight the shortness of breath worsened and he was short of breath at rest. On EMS arrival, O2 sat was 88% on room air. He was given an albuterol nebulized treatment and placed on CPAP. REVIEW OF SYSTEMS: complete 10 point ROS reviewed and is negative except for the noted elements in the HPI Source: Patient, EMS - Personal History Current Tetanus Diphtheria and Acellular Pertussis (TDAP): Yes Tetanus Vaccine Date: <10 years - Medical/Surgical History Hx Asthma: Yes Hx Chronic Respiratory Disease: No Hx Diabetes: No Hx Cardiac Disease: No Hx Renal Disease: Yes Hx Cirrhosis: No Hx Alcoholism: No Hx HIV/AIDS: No Hx Splenectomy or Spleen Trauma: No Other PMH: hx acute kidney failure, arthritis, hypothyroid, asthma, depression, HTN, KARIN, - Social History Smoking Status: Former smoker Alcohol Use: Sober Drug Use: None - Physical Exam Exam: General Appearance: Alert, pleasant, difficulty answering questions, confused Eyes: Pupils equal and round, 2mm, no conjunctival pallor ENT, Mouth: Mucous membranes moist Neck: Normal inspection Respiratory: Tachypnea, diffuse expiratory wheezing Cardiovascular: Regular rate and rhythm Gastrointestinal: Abdomen is soft and nontender Neurological: Alert, oriented to person and place, cranial nerves II through XII intact, motor 5/5, sensory grossly intact, gait not assessed Skin: Warm and dry Extremities: Normal inspection Psychiatric: Slightly anxious Constitutional: Initial Vital Signs Temperature (C) 38.8 C H 09/09/18 20:45 Heart Rate 103 H 09/09/18 20:45 Respiratory Rate 16 09/09/18 20:45 O2 Sat (%) 90 L 09/09/18 20:45 O2 Delivery Mode Nasal Cannula O2 (L/minute) 6 Allergies/Adverse Reactions: No Known Allergies Allergy (Verified 09/09/18 20:50) Home Medications: Medication Instructions Recorded Levothyroxine [Synthroid 50 mcg 50 mcg PO DAILY 01/30/14 (*)] Quinapril HCl [Accupril 20 MG] 40 mg PO DAILY 02/25/14 oxyCODONE IR [Oxycodone Ir (*)] 15 mg PO QID 05/20/18 Gabapentin [Neurontin 400 MG (*)] 1,200 mg PO TID 08/20/18 Melatonin [Melatonin 3 MG (*)] 6 mg PO HS PRN 08/20/18 Vilazodone HCl [Viibryd] 40 mg PO DAILY 08/20/18 traZODone [traZODONE 100MG (*)] 300 mg PO HS@2200 08/20/18 Albuterol [Proventil Inhaler HFA 2 puffs IH Q4 PRN #1 mdi 09/02/18 (*)] Fluticasone/Salmeter 250/50Mcg 1 puffs IH BID #1 disk 09/02/18 [Advair 250/50 (*)] Acetaminophen [Tylenol ES 500 mg 1,000 mg PO Q8HRS PRN 09/10/18 (*)] Medical Decision Making - Diagnostics Imaging Results: CXR: LLL infiltrate ED Course/Re-evaluation: This pt presents with persistent cough and SOB. On arrival, he was on CPAP, diffuse expiratory wheezing present, O2 sat 100%. Placed on O2 2l NC, tolerated well, maintained sat in mid-90's. Duoneb given, wheezing resolved after duoneb. Solumedrol 125mg IV given. Pt febrile 38.9 and WBC 39K, meets severe sepsis criteria. IVF per sepsis protocol initiated, given 3l wide open, then decreased rate to give remainder over 2hrs (pt obese, concern for fluid overload). Initial lactate 4.2, meets septic shock criteria. BP adequate throughout, no episodes of hypotension. Repeat lactate 1.7. CXR reveals LLL infiltrate. Levaquin V given. Pt recently admitted for same sx, given Zithromax during hospitalization, likely persistent infection, given persistent and gradually worsening sx. Ddimer quite elevated, most likely pneumonia, doubt PE. d/w Dr. Yao, requests CTA, CTA chest obtained and reveals multifocal pneumonia, suboptimal study for PE. In addition to respiratory c/o, pt is confused. I examined the pt multiple times throughout his ED stay and he remained confused. He was concerned about confusion, and especially his difficulty in completing his thoughts. This seems to improved slightly with IV hydration. I suspect this is secondary to septic shock/pneumonia and will need to be closely monitored. Consider CT head/further eval if no improvement. The pt will be admitted to the stepdown unit. This pt utilized 45 minutes of critical care time exclusive of unbundled procedures. Time spend in initial assessment, serial reassessments, radio recorder , charting, lab/imaging review, consultations. Organ at risk: lungs, brain Differential Diagnosis: for sob includes though not limited to empyema, pulmonary abscess, PE, pulm edema, ACS, pneumonia. - Data Points Laboratory Results: Laboratory Results 09/09/18 20:55 09/09/18 20:55 Microbiology Results: MICROBIOLOGY 09/09/18 21:09 Nasal, Sinus - Swab Respiratory Panel (PCR) - Final No Organism Detected By Pcr Medications Given: Acetaminophen (Tylenol) 650 mg PO Q4HRS PRN PRN Reason: Pain, Mild/Fever, Can Take PO Stop: 03/08/19 22:23 Last Admin: 09/10/18 14:57 Dose: 650 mg Albuterol (Proventil Neb) 3 ml IH QID [facility] Stop: 03/08/19 23:58 Last Admin: 09/10/18 21:39 Dose: 3 ml Doxycycline Hyclate (Doxycycline Hyclate) 100 mg PO BID DEBI Stop: 10/10/18 20:59 Last Admin: 09/10/18 20:11 Dose: 100 mg Enoxaparin Sodium (Lovenox) 40 mg SC BID DEBI Stop: 03/09/19 08:59 Last Admin: 09/10/18 20:11 Dose: 40 mg Gabapentin (Neurontin) 1,200 mg PO TID DEBI Stop: 03/09/19 15:59 Last Admin: 09/10/18 21:46 Dose: 1,200 mg Piperacillin/Tazobactam/Dextrose (Zosyn 3.375 Gm (Premix)) 50 mls @ 100 mls/hr IV Q6HRS DEBI PRN Reason: Protocol Stop: 10/10/18 00:00 Last Admin: 09/10/18 17:58 Dose: 50 mls Oxycodone HCl (Oxycodone Ir) 15 mg PO QID PRN PRN Reason: PAIN, SEVERE Stop: 09/20/18 11:59 Last Admin: 09/10/18 20:15 Dose: 15 mg Fluticasone/Salmeterol (Advair) 1 puffs IH BID DEBI Stop: 03/09/19 20:59 Last Admin: 09/10/18 21:40 Dose: 1 puffs Trazodone HCl (Trazodone) 300 mg PO HS@2200 DEBI Stop: 03/09/19 21:59 Last Admin: 09/10/18 21:46 Dose: 300 mg Discontinued Medications Acetaminophen (Tylenol) 650 mg PO EDNOW ONE Stop: 09/09/18 21:08 Last Admin: 09/09/18 21:13 Dose: Not Given Acetaminophen (Tylenol) 1,000 mg PO EDNOW ONE Stop: 09/09/18 21:14 Last Admin: 09/09/18 21:13 Dose: 1,000 mg Albuterol/Ipratropium (Duoneb) 3 ml IH EDNOW ONE Stop: 09/09/18 20:53 Last Admin: 09/09/18 20:52 Dose: 3 ml Gabapentin (Neurontin) 600 mg PO ONCE ONE Stop: 09/10/18 01:31 Last Admin: 09/10/18 01:57 Dose: 600 mg Levofloxacin/Dextrose (Levaquin 750 Mg (Premix)) 150 mls @ 100 mls/hr IV EDNOW ONE PRN Reason: Protocol Stop: 09/09/18 22:49 Last Admin: 09/09/18 21:36 Dose: 150 mls Sodium Chloride (Ns) 4,500 mls @ 9,000 mls/hr 30 ml/kg infuse over 30 min ( 4500 ml) IV EDNOW ONE PRN Reason: Protocol Stop: 09/09/18 21:49 Last Admin: 09/09/18 21:25 Dose: 4,500 mls Doxycycline Hyclate 100 mg/ (Sodium Chloride) 260 mls @ 260 mls/hr IV Q12HRS DEBI PRN Reason: Protocol Stop: 09/10/18 16:00 Last Admin: 09/10/18 12:28 Dose: 260 mls Methylprednisolone Sodium Succinate (Solu-Medrol) 125 mg IVP EDNOW ONE Stop: 09/09/18 20:53 Last Admin: 09/09/18 21:05 Dose: 125 mg Methylprednisolone Sodium Succinate (Solu-Medrol) 60 mg IVP Q6H DEBI Stop: 03/09/19 02:59 Last Admin: 09/10/18 10:02 Dose: 60 mg Trazodone HCl (Trazodone) 150 mg PO ONCE ONE Stop: 09/10/18 01:31 Last Admin: 09/10/18 01:58 Dose: 150 mg Point of Care Test Results: Chemistry 09/09/18 21:00 POC Troponin I 0.02 ng/mL ng/mL (0.00-0.08) Departure - Departure Disposition: [facility] Inpatient Acute Clinical Impression: Pneumonia Qualifiers: Pneumonia type: due to unspecified organism Laterality: left Lung location: lower lobe of lung Qualified Code(s): J18.1 - Lobar pneumonia, unspecified organism Condition: Serious
[2018-09-09] MEDS ORDERED: ACETAMINOPHEN 325 MG TAB PO ONE (21:07)
[2018-09-09] MEDS ORDERED: ACETAMINOPHEN 500 MG TAB ONE (21:12)
[2018-09-09 21:13] LABS: PLATELET COUNT 184 10^3/uL (150-400)
[2018-09-09] MEDS ORDERED: ACETAMINOPHEN 500 MG TAB PO ONE (21:13)
[2018-09-09] MEDS ORDERED: NS IV ONE (21:20)
[2018-09-09] MEDS ORDERED: ALBUTEROL 3 ML DEYVIAL IH PRN (22:24)
[2018-09-09] MEDS ORDERED: ONDANSETRON DISINTEGRATING 4 MG TAB PO PRN (22:24)
[2018-09-09] MEDS ORDERED: ONDANSETRON 4 MG/2 ML VIAL IVP PRN (22:24)
[2018-09-09] MEDS ORDERED: IOPAMIDOL (ISOVUE 370) 100 ML BTL IV ONE (22:30)
--- NOTE | 2018-09-10 00:08 | PDGENHP ---
History and Physical - Chief Complaint Shortness of breath - History of Present Illness 58 yo M w/ hx of depression, asthma, KARIN, and hyothyroid presents with cough, shortness of breath, and fever. The patient was briefly admitted here last week for mild asthma exacerbation without clear etiology. It was thought that perhaps environmental allergens played a role. He is pleasant and cooperative at the moment but somewhat confused so his history is limited. He was discharged with albuterol, prednisone, and allergy medication. His compliance with these medications is questionable as patient has limited ability to recall at this time. He tells me he has had a progressive cough for the past few days productive of green sputum. Today he was short of breath and dizzy while trying to ambulate so he came to the ED for evaluation. Upon arrival in the ED he was noted to be in significant distress requiring BIPAP for work of breathing. He was tachycardic, tachypneic, febrile, and has severe leukocytosis. CT notable for multifocal pneumonia. He is being admitted for management of severe sepsis. Case discussed with ED physician Dr. Alvarado; records reviewed and summarized above. History Information - Allergies/Home Medication List Allergies/Adverse Reactions: No Known Allergies Allergy (Verified 09/09/18 20:50) Home Medications: Levothyroxine [Synthroid 50 mcg (*)] 50 mcg PO DAILY 01/30/14 [Last Taken ] Quinapril HCl [Accupril 20 MG] 40 mg PO DAILY 02/25/14 [Last Taken 05/20/18] oxyCODONE IR [Oxycodone Ir (*)] 15 mg PO QID 05/20/18 [Last Taken 05/19/18] Gabapentin [Neurontin 400 MG (*)] 1,200 mg PO TID 08/20/18 [Last Taken Unknown] Melatonin [Melatonin 3 MG (*)] 6 mg PO HS 08/20/18 [Last Taken Unknown] Vilazodone HCl [Viibryd] 40 mg PO DAILY 08/20/18 [Last Taken Unknown] traZODone [traZODONE 100MG (*)] 300 mg PO HS@2200 08/20/18 [Last Taken Unknown] I have personally reviewed and updated: family history, medical history - Past Medical History hypertension Additional medical history: hypothyroid, OCD, nerve pain, KARIN on CPAP, LE edema - Surgical History Additional surgical history: knee replacements - Family History Positive for: CAD - Social History Smoking Status: Former smoker Alcohol Use: Sober Drug Use: None Additional social history: Lives independently. Currently hospitalized at [facility] unit for ECT. Review of Systems Review of Systems: ROS: 10pt was reviewed & negative except for what was stated in HPI & below Physical Exam Physical Exam: Temp Pulse Resp BP Pulse Ox 37.2 C 84 20 126/75 H 95 09/09/18 23:45 09/09/18 23:44 09/09/18 23:44 09/09/18 23:44 09/09/18 23:44 O2 (L/minute) 5 Constitutional: obese, uncomfortable Eyes: PERRL, EOMI Ears, Nose, Mouth, Throat: moist mucous membranes, no oral mucosal ulcers Cardiovascular: no murmur, rub, or gallop, tachycardia Respiratory: reduced air movement, inspiratory crackles, respiratory distress Gastrointestinal: normoactive bowel sounds, soft, non-tender abdomen Skin: warm, normal color Musculoskeletal: full muscle strength, no muscle tenderness Neurologic: AAOx3, CN II-XII Intact Psychiatric: interacting appropriately, encephalopathic, poor insight, poor memory Lab Data & Imaging Review 09/09/18 20:55 09/09/18 20:55 WBC 39.73 10^3/uL (3.80-9.50) H 09/09/18 20:55 RBC 4.78 10^6/uL (4.40-6.38) 09/09/18 20:55 Hgb 14.5 g/dL (13.7-17.5) 09/09/18 20:55 Hct 45.5 % (40.0-51.0) 09/09/18 20:55 MCV 95.2 fL (81.5-99.8) 09/09/18 20:55 MCH 30.3 pg (27.9-34.1) 09/09/18 20:55 MCHC 31.9 g/dL (32.4-36.7) L 09/09/18 20:55 RDW 13.7 % (11.5-15.2) 09/09/18 20:55 Plt Count 184 10^3/uL (150-400) 09/09/18 20:55 MPV 9.7 fL (8.7-11.7) 09/09/18 20:55 Neut % (Auto) Not Reported 09/09/18 20:55 Lymph % (Auto) Not Reported 09/09/18 20:55 Tyler % (Auto) Not Reported 09/09/18 20:55 Eos % (Auto) Not Reported 09/09/18 20:55 Baso % (Auto) Not Reported 09/09/18 20:55 Nucleat RBC Rel Count Not Reported 09/09/18 20:55 Absolute Neuts (auto) Not Reported 09/09/18 20:55 Absolute Lymphs (auto) Not Reported 09/09/18 20:55 Absolute Monos (auto) Not Reported 09/09/18 20:55 Absolute Eos (auto) Not Reported 09/09/18 20:55 Absolute Basos (auto) Not Reported 09/09/18 20:55 Absolute Nucleated RBC Not Reported 09/09/18 20:55 Immature Gran % Not Reported 09/09/18 20:55 Seg Neutrophils % 72.0 % 09/09/18 20:55 Band Neutrophils % 17.0 % 09/09/18 20:55 Lymphocytes % 8.0 % 09/09/18 20:55 Monocytes % 3.0 % 09/09/18 20:55 Eosinophils % 0.0 % 09/09/18 20:55 Basophils % 0.0 % 09/09/18 20:55 Metamyelocytes % 0.0 % 09/09/18 20:55 Myelocytes % 0.0 % 09/09/18 20:55 Promyelocytes % 0.0 % 09/09/18 20:55 Blast Cells % 0.0 % 09/09/18 20:55 Immature Gran # Not Reported 09/09/18 20:55 Absolute Seg Neuts 28.61 10^3/uL (1.70-6.50) H 09/09/18 20:55 Absolute Band Neuts 6.75 10^3/uL (0.00-0.70) H 09/09/18 20:55 Absolute Lymphocytes 3.18 10^3/uL (1.00-3.00) H 09/09/18 20:55 Absolute Monocytes 1.19 10^3/uL (0.30-0.80) H 09/09/18 20:55 Absolute Eosinophils 0.00 10^3/uL (0.03-0.40) L 09/09/18 20:55 Absolute Basophils 0.00 10^3/uL (0.02-0.10) L 09/09/18 20:55 Absolute Metamyelocyte 0.00 10^3/mL (0.00-0.00) 09/09/18 20:55 Absolute Myelocytes 0.00 10^3/mL (0.00-0.00) 09/09/18 20: Absolute Promyelocytes 0.00 10^3/uL (0.00-0.00) 09/09/18 20:55 Absolute Plasma Cells 0.00 10^3/uL (0.00-0.00) 09/09/18 20:55 Nucleated RBCs 0 /100 WBC (0-0) 09/09/18 20:55 RBC/WBC/PLT Morphology NORMAL (NORMAL) 09/09/18 20:55 Absolute Blast Cells 0.00 10^3/uL (0.00-0.00) 09/09/18 20: Plasma Cells % 0.0 % 09/09/18 20:55 Platelet Estimate ADEQUATE (ADEQ) 09/09/18 20:55 D-Dimer 3.14 ug/mLFEU (0.00-0.50) H 09/09/18 20:55 VBG Lactic Acid 1.7 mmol/L (0.7-2.1) 09/09/18 22:20 Sodium 135 mEq/L (135-145) 09/09/18 20:55 Potassium 5.2 mEq/L (3.5-5.2) 09/09/18 20:55 Chloride 105 mEq/L (97-110) 09/09/18 20:55 Carbon Dioxide 19 mEq/l (22-31) L 09/09/18 20:55 Anion Gap 11 mEq/L (6-14) 09/09/18 20:55 BUN 30 mg/dL (7-23) H 09/09/18 20:55 Creatinine 1.6 mg/dL (0.7-1.3) H 09/09/18 20:55 Estimated GFR 44 09/09/18 20:55 Glucose 100 mg/dL (70-100) 09/09/18 20:55 Calcium 9.5 mg/dL (8.5-10.4) 09/09/18 20:55 POC Troponin I 0.02 ng/mL (0.00-0.08) 09/09/18 21:00 NT-Pro-B Natriuret Pep 108 pg/mL (0-125) 09/09/18 20:55 Procalcitonin 1.21 ng/mL (0.02-0.10) H 09/09/18 22:00 Urine Color YELLOW 09/09/18 21:43 Urine Appearance HAZY 09/09/18 21:43 Urine pH 5.0 (5.0-7.5) 09/09/18 21:43 Ur Specific [place] 1.021 (1.002-1.030) 09/09/18 21:43 Urine Protein 1+ (NEGATIVE) H 09/09/18 21:43 Urine Ketones NEGATIVE (NEGATIVE) 09/09/18 21:43 Urine Blood 2+ (NEGATIVE) H 09/09/18 21:43 Urine Nitrate NEGATIVE (NEGATIVE) 09/09/18 21:43 Urine Bilirubin NEGATIVE (NEGATIVE) 09/09/18 21:43 Urine Urobilinogen NEGATIVE EU (0.2-1.0) 09/09/18 21:43 Ur Leukocyte Esterase NEGATIVE (NEGATIVE) 09/09/18 21:43 Urine RBC 1-3 /hpf (0-3) 09/09/18 21:43 Urine WBC 5-10 /hpf (0-3) H 09/09/18 21:43 Ur Epithelial Cells TRACE /lpf (NONE-1+) 09/09/18 21:43 Hyaline Casts 1-5 /lpf (0-1) 09/09/18 21:43 Urine Mucus 1+ /lpf (NONE-1+) 09/09/18 21:43 Urine Glucose NEGATIVE (NEGATIVE) 09/09/18 21:43 Imaging Review: Imaging Impressions Chest X-Ray 09/09/18 20:53 Impression: Left perihilar opacity is new since the prior examination and may represent early pneumonia versus atelectasis. Recommend correlation with symptomatology. Chest/Thorax CTA 09/09/18 22:19 Impression: 1. Suboptimal study for a pulmonary embolus. No central embolus is seen. 2. Patchy groundglass and airspace opacities in the left perihilar region affecting both the left upper and lower lobes, suspicious for multifocal pneumonia. Recommend imaging after treatment to ensure resolution. 3. Groundglass nodules in the right upper and lower lobes may be infectious. These can be followed on repeat imaging. 4. Mild cardiomegaly. Suggestion of pulmonary hypertension. 5. Fatty liver. Findings and recommendations discussed with the ER at 2318 hour, 09/09/2018. Assessment & Plan Assessment: 58 yo M w/ hx of asthma, KARIN, and hypothyroid presents with severe sepsis due to multifocal pneumonia. Plan: 1. Severe sepsis 2/2 multifocal pneumonia - Sepsis per 08/20 SIRS criteria; CT notable for multifocal pneumonia. End organ involvement evidence by lactate<4, LILLY, and acute encephalopathy. He is hemodynamically stable at this time. - Admit to step down unit for close monitoring - S/p 30 mL/kg fluid bolus, additional IVF PRN - Zosyn IV noting recent hospitalization and severity of illness - Blood cultures pending 2. Mild, intermittent asthma with acute exacerbation - Precipitated by multifocal pneumonia. His asthma has historically been mild but this is his second hospitalization for respiratory issues in the last week. - S/p methylprednisolone 125 mg IV x1 in ED, continue 60 mg IV q6h - Albuterol QID dali + q2h PRN - Infectious management as above 3. AHRF - Multifactorial from pneumonia and asthma exacerbation. He was initially requiring BIPAP but is now stable on 4-5 L/min O2 after initial treatment. CTPE negative for PE. - Acute management as above - Continue O2 PRN to maintain O2 sats>89% - Incentive spirometry ordered 4. Acute metabolic encephalopathy - I suspect this is due to sepsis. He does have underlying psychiatric disease, unclear if this is contributing. He is alert and oriented but has poor memory at the moment. - Consider psychiatry consult if not improving with treatment of infection 5. KARIN - Will continue nighttime CPAP 6. Hypothyroid - Continue LTX Diet - Regular Code - Full Ppx - LMWH Dispo - Admit under inpatient status
[2018-09-10] MEDS: ALBUTEROL 3 ML DEYVIAL IH SCH ×5 (00:36→21:39)
[2018-09-10] MEDS: PIPERACILLIN/TAZO 3.375 GM/DEX 50 ML IV SCH ×4 (00:58→17:58)
[2018-09-10] MEDS ORDERED: GABAPENTIN 300 MG CAP PO ONE (01:30)
[2018-09-10] MEDS ORDERED: traZODone 50 MG TAB PO ONE (01:30)
[2018-09-10] MEDS: ACETAMINOPHEN 325 MG TAB PO PRN ×2 (01:57→14:57)
[2018-09-10] MEDS: methylPREDNISolone SOD SUCC 125 MG/2 ML VIAL IVP SCH ×2 (01:58→10:02)
[2018-09-10 06:00] LABS: PLATELET COUNT 141 10^3/uL (150-400)
--- NOTE | 2018-09-10 08:49 | PDCONSULT ---
Teacher Music Note: ASSESSMENT 58-year-old male with acute hypoxemic respiratory failure from pneumonia with underlying asthma and KARIN # pneumonia, community-acquired versus Hcap. elevated procalcitonin # acute hypoxemic respiratory failure. Oxygen requirements decreasing # asthma. childhood h/o asthma but grew out per report. No wheezing on exam. Given obesity may be more non TH2 mediated asthma. # KARIN depend on CPAP # leukocytosis. Infection plus steroids. No diarrhea. No suggestion of underlying malignancy # chronic pain. On Oxy IR and gabapentin as outpatient # hypertension PLAN # doxycycline plus Zosyn for atypical coverage plus risk factors for MDR. If sputum cultures negative will narrow antibiotics to complete 7 days of doxy and 5 days ceftriaxone or Augmentin # decreased steroids from 60 q.6h to Pred 40 daily given lack of wheezing # as needed pain medications # duo nebs # CPAP at night # sputum cultures # Feeding - okay to advance diet # Analgesia APAP, Oxy # Sedation trazodone # Thromboprophylaxis - SQ hep # Head of bed elevated # Ulcer prophylaxis - H2 gonzález # Glucose SSI # Skin no skin breakdown # Delirium - delirium precautions ABX Doxycycline, Zosyn CX Data 09/09/2018 viral PCR negative IMAGING I was asked by Dr. Yao of [facility] to evaluate this patient for acute hypoxemic respiratory failure and severe pneumonia Chief complaint Shortness of breath HPI Negro is a pleasant 58-year-old male with a history of obesity, KARIN on CPAP and asthma who presented with 2 days of progressive cough fevers and shortness of breath. He was seen week prior in the emergency department for mild asthma exacerbation was given azithromycin and steroids. While in the emergency department he underwent a stat CT PE was negative for PE but demonstrated patchy left-sided ground-glass opacifications. He was briefly placed on BiPAP for increased work of breathing. He also had elevated lactic acidosis and severe leukocytosis. After fluid resuscitation and supplemental oxygen his shortness of breath improved and was weaned off of BiPAP therapy. He denies nausea vomiting diarrhea exposure to mist water. Allergiers NKDA MED HX Hypothyroidism, KARIN on CPAP, chronic pain, chronic lower extremity edema, OA status post bilateral knee replacements SOC HX Nonsmoker, lives in [facility] Family history Coronary disease Review of systems A comprehensive 10 point review of systems was obtained is negative except as per HPI Physical exam Vitals 38.8, pulse 86, blood pressure 123/72 resp is 18 96% on 4 L nasal cannula GEN: NAD, resting in chair NEURO: A&Ox3, CN 2-12 GI, appropriate fluency, normal long goods drier recall HEENT: PERRL, EOMI, MMM, OP clear NECK: Thick neck, trachea midline CHEST normal shape, no pes excavatum CVS: rrr no m/r/g, no JVD appreciated PULM: CTAB, no wheezes/rales/rhonchi ABD: soft, NT, ND, NABS EXT: no swelling, no cyanosis, full ROM SKIN: warm, dry, intact, no rash PSYCH CAM negative, appropriate affect Labs Reviewed significant for leukocytosis with left shift, elevated procalcitonin Imaging I personally reviewed interpreted radiographic images well as formal radiology reads. September 102018 CTA chest no PE multifocal patchy ground-glass opacifications in left lung field.
--- NOTE | 2018-09-10 09:14 | ASMTLACE ---
MOUNA Acuity / Level of Answers: Yes Care: Did the patient have an inpatient admission? Comorbidities - select Answers: Moderate or severe liver all that apply or renal disease Opioid dependence / Chronic pain Other Notes: Asthma; HTN; Hypothyroi d # of Emergency department Answers: 3-4 visits in the last 6 months Social determinants Answers: Mental health diagnosis (anxiety, depression, pers onality disorders, etc.) Score: 18 Date Signed: 09/10/2018 09:13 AM Electronically Signed By:Sana Putnam
[2018-09-10] MEDS: ENOXAPARIN 40 MG/0.4 ML SYR SC SCH ×2 (10:14→20:11)
[2018-09-10] MEDS ORDERED: DOXYCYCLINE INJ 100 MG in NS 250 ML IV SCH (10:45)
--- NOTE | 2018-09-10 11:02 | HOSPPROG ---
Hospitalist Progress Note Assessment/Plan: 58 yo M w asthma here w multifocal pneumonia pneumonia: treat as HCAP zosyn add doxy (recent course azith) check legionella asthma: step down to po pred continue mdi ? PE: bloody sputum suboptimal contrast bolus check LE u/s proph: lmwh pain: continue oxycodone htn: continue meds dispo: to floor Subjective: ct images reviewed/interp by me. case d/w dr tovar Objective: Vital Signs Temp Pulse Resp BP Pulse Ox 37.2 C 94 13 181/91 H 94 09/10/18 08:00 09/10/18 08:00 09/10/18 08:00 09/10/18 08:00 09/10/18 08:00 Laboratory Results 09/10/18 05:45 09/10/18 05:45 09/09/18 09/10/18 09/11/18 05:59 05:59 05:59 Intake Total 4400 Output Total 1460 Balance 2940 - Physical Exam Constitutional: no apparent distress, appears nourished Eyes: PERRL, anicteric sclera Ears, Nose, Mouth, Throat: moist mucous membranes, hearing normal Cardiovascular: regular rate and rhythym, no murmur, rub, or gallop Respiratory: no respiratory distress, no rales or rhonchi, other (diffuse rhonchi b/l) Gastrointestinal: normoactive bowel sounds, soft, non-tender abdomen Genitourinary: no bladder fullness, No [place] in urethra Skin: warm, normal color Musculoskeletal: full muscle strength, no muscle tenderness Neurologic: AAOx3 ICD10 Worksheet Patient Problems: Problems Problem Status Onset Pneumonia Acute Asthma Active Essential hypertension Active Hypoxia Active Narcotic drug user Active Obesity Active Obstructive sleep apnea syndrome Active Acute bronchitis Acute Ataxia Acute Exacerbation of asthma Acute Major depressive disorder, recurrent episode, severe Acute Osteoarthritis of knee Acute Renal insufficiency Acute Tremor Acute
--- NOTE | 2018-09-10 12:04 | PDMN ---
Medical Necessity Medical necessity: Pt meets IP criteria per MD & MCG M-160; est los >2 mn for eval/tx of severe sepsis secondary to pneumonia w/acute metabolic encephalopathy , asthma exacerbation & acute hypoxemic respiratory failure; requiring close SDU monitoring, IV abx & respiratory supportive care; per H&P & order 09/09/18
[2018-09-10] MEDS: oxyCODONE IR 15 MG TAB PO PRN ×2 (14:02→20:15)
[2018-09-10] MEDS: GABAPENTIN 400 MG CAP PO SCH ×2 (14:59→21:46)
--- NOTE | 2018-09-10 15:31 | ASMTCMCOM ---
CM Note CM Note Notes: Reviewed chart, pt admitted for pneumonia. He was recently discharged from , he has a hx of depression and is current with [facility]. Dc needs uncertain, therapies to eval. DC Plan: TBD Date Signed: 09/10/2018 03:31 PM Electronically Signed By:Megan Zhou RN
[2018-09-10] MEDS: DOXYCYCLINE HYCLATE 100 MG CAP/TAB PO SCH (20:11)
[2018-09-10] MEDS: FLUTICASONE/SALMETER 250/50MCG DISKUS IH SCH (21:40)
[2018-09-10] MEDS: traZODone 100 MG TAB PO SCH (21:46)
[2018-09-11] MEDS: PIPERACILLIN/TAZO 3.375 GM/DEX 50 ML IV SCH ×4 (01:42→18:08)
[2018-09-11] MEDS: oxyCODONE IR 15 MG TAB PO PRN ×3 (02:09→16:42)
[2018-09-11] MEDS: LEVOTHYROXINE 50 MCG TAB PO SCH (05:43)
[2018-09-11] MEDS: ALBUTEROL 3 ML DEYVIAL IH SCH ×4 (05:48→21:22)
[2018-09-11] MEDS: DOXYCYCLINE HYCLATE 100 MG CAP/TAB PO SCH ×2 (07:38→22:10)
[2018-09-11] MEDS: predniSONE 20 MG TAB PO SCH (07:39)
[2018-09-11] MEDS: GABAPENTIN 400 MG CAP PO SCH ×3 (07:39→22:09)
[2018-09-11] MEDS: ENOXAPARIN 40 MG/0.4 ML SYR SC SCH ×2 (07:40→22:37)
[2018-09-11] MEDS: ACETAMINOPHEN 325 MG TAB PO PRN (07:50)
[2018-09-11] MEDS: Vilazodone Hcl [Viibryd] 40 MG PO SCH (07:57)
[2018-09-11] MEDS ORDERED: IBUPROFEN 200 MG TAB PO ONE (10:05)
[2018-09-11] MEDS: DIAZEPAM 5 MG TAB PO PRN ×2 (10:26→22:09)
[2018-09-11] MEDS: FLUTICASONE/SALMETER 250/50MCG DISKUS IH SCH ×2 (10:32→21:26)
[2018-09-11] MEDS: CALCIUM CARBONATE 500 MG CHEWABLE TAB PO PRN ×2 (12:35→22:10)
--- NOTE | 2018-09-11 13:15 | CPEKG ---
Test Reason : dyspnea Blood Pressure : / mmHG Vent. Rate : 094 BPM Atrial Rate : 094 BPM P-R Int : 122 ms QRS Dur : 082 ms QT Int : 321 ms P-R-T Axes : 061 -11 031 degrees QTc Int : 402 ms Sinus rhythm Confirmed by Lm Lundy ([id number]) on 09/11/2018 1:14:48 PM Referred By: Mike Yao Confirmed By:Lm Lundy
--- NOTE | 2018-09-11 14:03 | HOSPPROG ---
Hospitalist Progress Note Assessment/Plan: 58 yo M w asthma here w multifocal pneumonia. First encounter, chart reviewed. pneumonia: treat as HCAP zosyn add doxy (recent course azith) check legionella asthma: po pred continue mdi ? PE: bloody sputum suboptimal contrast bolus check LE u/s Hx depression: will have psych consult pt was getting ECT but can't cont Anxiety: PRN valium Headache: ibuprofen KARIN: cpap proph: lmwh pain: continue oxycodone htn: continue meds dispo: cont supportive care Subjective: Up in chair. Doesn't feel well today. Has a headache. Objective: Vital Signs Temp Pulse Resp BP Pulse Ox 37.4 C 87 16 155/69 H 93 09/11/18 07:43 09/11/18 10:32 09/11/18 10:32 09/11/18 07:43 09/11/18 10:32 Microbiology 09/10/18 11:49 - Final Sputum, Expectorated Laboratory Results 09/10/18 05:45 09/10/18 05:45 09/10/18 09/11/18 09/12/18 05:59 05:59 05:59 Intake Total 4400 Output Total 1460 Balance 2940 - Physical Exam Constitutional: appears nourished, chronically ill appearing, obese Eyes: PERRL, anicteric sclera, EOMI Ears, Nose, Mouth, Throat: moist mucous membranes, hearing normal, ears appear normal Cardiovascular: regular rate and rhythym, No JVD, No edema Respiratory: no respiratory distress, no rales or rhonchi, reduced air movement Gastrointestinal: normoactive bowel sounds, No tenderness, No ascites Skin: warm, normal color, No mottled Musculoskeletal: normal joint ROM, no joint effusions, generalized weakness Neurologic: AAOx3 Psychiatric: not encephalopathic, anxious, poor insight, poor memory ICD10 Worksheet Patient Problems: Problems Problem Status Onset Pneumonia Acute Asthma Active Essential hypertension Active Hypoxia Active Narcotic drug user Active Obesity Active Obstructive sleep apnea syndrome Active Acute bronchitis Acute Ataxia Acute Exacerbation of asthma Acute Major depressive disorder, recurrent episode, severe Acute Osteoarthritis of knee Acute Renal insufficiency Acute Tremor Acute
[2018-09-11] MEDS: IBUPROFEN 200 MG TAB PO PRN ×2 (16:43→22:17)
--- NOTE | 2018-09-11 17:27 | PDCONSULT ---
Thermostat Repairer Note: PSYCHIATRY MD CONSULTATION psychiatry consult requested by hospitalist to evaluate depression/anxiety and make recommendations pt seen and evaluated, although pt requested I come back later since he is feeling effects of Valium 5mg prn he received, and feels he is not able to be very clear in communication complete note to follow
[2018-09-11] MEDS: traZODone 100 MG TAB PO SCH (22:10)
[2018-09-12] MEDS: PIPERACILLIN/TAZO 3.375 GM/DEX 50 ML IV SCH ×5 (00:07→23:54)
[2018-09-12] MEDS: oxyCODONE IR 15 MG TAB PO PRN ×3 (05:17→18:20)
[2018-09-12] MEDS: LEVOTHYROXINE 50 MCG TAB PO SCH (05:17)
[2018-09-12] MEDS: IBUPROFEN 200 MG TAB PO PRN ×3 (05:20→18:20)
[2018-09-12] MEDS: ALBUTEROL 3 ML DEYVIAL IH SCH ×4 (05:42→21:14)
[2018-09-12] MEDS: ENOXAPARIN 40 MG/0.4 ML SYR SC SCH ×2 (09:19→21:57)
[2018-09-12] MEDS: GABAPENTIN 400 MG CAP PO SCH ×3 (09:20→21:57)
[2018-09-12] MEDS: DOXYCYCLINE HYCLATE 100 MG CAP/TAB PO SCH ×2 (09:21→20:18)
[2018-09-12] MEDS: predniSONE 20 MG TAB PO SCH (09:21)
[2018-09-12] MEDS: Vilazodone Hcl [Viibryd] 40 MG PO SCH (09:25)
[2018-09-12] MEDS: FLUTICASONE/SALMETER 250/50MCG DISKUS IH SCH ×2 (09:52→21:18)
[2018-09-12] MEDS: CALCIUM CARBONATE 500 MG CHEWABLE TAB PO PRN (09:55)
--- NOTE | 2018-09-12 10:50 | HOSPPROG ---
Hospitalist Progress Note Assessment/Plan: 58 yo M w asthma here w multifocal pneumonia. pneumonia: treat as HCAP perfectojay andrade (recent course azith) acute hypoxemic reps failure cont O2 in setting of PNA asthma: po pred continue mdi ? PE: bloody sputum, resolved suboptimal contrast bolus LE u/s negative Hx depression: appreciate psych consult pt was getting ECT but can't cont Anxiety: PRN valium Headache: ibuprofen KARIN: cpap proph: lmwh pain: continue oxycodone htn: continue meds dispo: cont supportive care Subjective: Up in chair. Slept better last night. Some join pain. Objective: Vital Signs Temp Pulse Resp BP Pulse Ox 37.5 C 81 16 135/77 H 97 09/12/18 07:06 09/12/18 07:06 09/12/18 07:06 09/12/18 07:06 09/12/18 07:06 Microbiology 09/10/18 11:49 - Final Sputum, Expectorated Laboratory Results 09/10/18 05:45 09/10/18 05:45 - Physical Exam Constitutional: appears nourished, obese Eyes: PERRL, anicteric sclera Ears, Nose, Mouth, Throat: moist mucous membranes, hearing normal Cardiovascular: edema, No JVD Respiratory: no respiratory distress, reduced air movement Gastrointestinal: No tenderness, No ascites Skin: warm, normal color Musculoskeletal: no joint effusions, generalized weakness Neurologic: AAOx3 Psychiatric: not encephalopathic, anxious ICD10 Worksheet Patient Problems: Problems Problem Status Onset Narcotic drug user Active Hypoxia Active Obstructive sleep apnea syndrome Active Essential hypertension Active Obesity Active Asthma Active Osteoarthritis of knee Acute Ataxia Acute Tremor Acute Renal insufficiency Acute Major depressive disorder, recurrent episode, severe Acute Acute bronchitis Acute Exacerbation of asthma Acute Pneumonia Acute
[2018-09-12] MEDS: PANTOPRAZOLE SODIUM 40 MG TAB PO SCH (11:19)
--- NOTE | 2018-09-12 16:35 | ASMTCMCOM ---
CM Note CM Note Notes: Spoke w/DIE HOLDER, pt will dc home w/[facility] on Friday. He has an appt with PCP at 2pm. He has a hx of depression and was getting ECT. DC Plan: Home Care/ [facility] (RN/PT) Date Signed: 09/12/2018 04:34 PM Electronically Signed By:Megan Zhou RN
[2018-09-12] MEDS: traZODone 100 MG TAB PO SCH (21:57)
[2018-09-13] MEDS: oxyCODONE IR 15 MG TAB PO PRN ×4 (00:27→21:48)
[2018-09-13] MEDS: IBUPROFEN 200 MG TAB PO PRN ×4 (00:27→21:47)
[2018-09-13] MEDS: PIPERACILLIN/TAZO 3.375 GM/DEX 50 ML IV SCH ×4 (05:34→23:13)
[2018-09-13] MEDS: LEVOTHYROXINE 50 MCG TAB PO SCH (05:34)
[2018-09-13] MEDS: ALBUTEROL 3 ML DEYVIAL IH SCH ×4 (05:53→22:07)
[2018-09-13] MEDS: predniSONE 20 MG TAB PO SCH (08:18)
[2018-09-13] MEDS: PANTOPRAZOLE SODIUM 40 MG TAB PO SCH (08:19)
[2018-09-13] MEDS: DOXYCYCLINE HYCLATE 100 MG CAP/TAB PO SCH ×2 (08:19→21:49)
[2018-09-13] MEDS: GABAPENTIN 400 MG CAP PO SCH ×3 (08:19→21:48)
[2018-09-13] MEDS: ENOXAPARIN 40 MG/0.4 ML SYR SC SCH ×2 (08:24→21:49)
[2018-09-13] MEDS: Vilazodone Hcl [Viibryd] 40 MG PO SCH (08:29)
--- NOTE | 2018-09-13 09:30 | HOSPPROG ---
Hospitalist Progress Note Assessment/Plan: 58 yo M w asthma here w multifocal pneumonia. pneumonia: treat as HCAP anjana zafar (recent course azith) acute hypoxemic reps failure resolved cont O2 in setting of PNA asthma: po pred continue mdi ? PE: bloody sputum, resolved suboptimal contrast bolus LE u/s negative Hx depression: appreciate psych consult pt was getting ECT but can't cont not suicidal Anxiety: PRN valium Headache: ibuprofen KARIN: cpap proph: lmwh pain: continue oxycodone htn: continue meds dispo: cont supportive care likely in am if feeling better Subjective: Up in chair. Feeling better. No pain. Objective: Vital Signs Temp Pulse Resp BP Pulse Ox 37.2 C 78 18 129/96 H 93 09/13/18 07:48 09/13/18 07:48 09/13/18 07:48 09/13/18 07:48 09/13/18 07:48 Microbiology 09/10/18 11:49 - Final Sputum, Expectorated Laboratory Results 09/10/18 05:45 09/10/18 05:45 09/12/18 09/13/18 09/14/18 05:59 05:59 05:59 Intake Total 750 Balance 750 - Physical Exam Constitutional: not in pain, obese Eyes: PERRL, anicteric sclera Ears, Nose, Mouth, Throat: moist mucous membranes, hearing normal Cardiovascular: No JVD, No edema Respiratory: no respiratory distress, reduced air movement, expiratory wheeze Gastrointestinal: No tenderness, No ascites Skin: warm, normal color Musculoskeletal: no joint effusions, generalized weakness Neurologic: AAOx3 Psychiatric: interacting appropriately, not encephalopathic, poor memory ICD10 Worksheet Patient Problems: Problems Problem Status Onset Narcotic drug user Active Hypoxia Active Obstructive sleep apnea syndrome Active Essential hypertension Active Obesity Active Asthma Active Osteoarthritis of knee Acute Ataxia Acute Tremor Acute Renal insufficiency Acute Major depressive disorder, recurrent episode, severe Acute Acute bronchitis Acute Exacerbation of asthma Acute Pneumonia Acute
[2018-09-13] MEDS: FLUTICASONE/SALMETER 250/50MCG DISKUS IH SCH ×2 (09:42→22:08)
--- NOTE | 2018-09-13 16:30 | ASMTCMCOM ---
CM Note CM Note Notes: CM discussed with Hospitalist. Patient likely to discharge to home with [facility] and has PCP appointment on Friday. CM sent email for [facility] referral, CM to follow. D/C Plan: Home with [facility]. Date Signed: 09/13/2018 11:58 AM Electronically Signed By:Caren Wild
[2018-09-13] MEDS: traZODone 100 MG TAB PO SCH (21:48)
[2018-09-13] MEDS ORDERED: MELATONIN 3 MG TAB PO SCH (23:45)
[2018-09-14] MEDS: oxyCODONE IR 15 MG TAB PO PRN ×3 (04:44→16:52)
[2018-09-14] MEDS: IBUPROFEN 200 MG TAB PO PRN ×3 (04:44→16:53)
[2018-09-14] MEDS: PIPERACILLIN/TAZO 3.375 GM/DEX 50 ML IV SCH ×2 (05:30→11:46)
[2018-09-14] MEDS: LEVOTHYROXINE 50 MCG TAB PO SCH (05:30)
--- NOTE | 2018-09-14 08:23 | HOSPPROG ---
Hospitalist Progress Note Assessment/Plan: 58 yo M w asthma here w multifocal pneumonia. 1st encounter. Chart reviewed *pneumonia -was treated with Zosyn and doxycycline -blood cultures show no growth *acute hypoxemic reps failure -resolved -CT scan of the chest was sub optimal contrast bolus and did not verify if the patient had a PE -will recommend further imaging once his pneumonia resolves *asthma -on prednisone *? PE -lower extremity ultrasound is negative -CT of the chest was evaluated by pulmonology who did not feel the patient had a PE * chronic pain on chronic continuous opiates -patient requesting another refill of his Oxy. He had a prescription filled August 27 for 28 days. Will have him follow up with his primary care provider he has an appointment today. *Hx depression -was seen by Dr. Garber -had been getting ECT -reviewed the patient's care with Dr. Winchester. Patient has not been able to do well with ECT due to sedation and did not tolerate ECT even being inpatient. The recommendation is transcranial magnetic stimulation. He may need to get treatment down at [facility] *Anxiety -ongoing *Headache -no complaints of this today *KARIN -cpap proph: lmwh Plan. Has an appointment today at 2:00 p.m. With his primary care provider. Will provide him with antibiotics for 2 more days. Will also wean off the prednisone because of his of his severe anxiety. Subjective: Negro is no complaints of pain while on the pain medications but said that he has severe arthritis that is placed him on disability. He has no complaints of shortness of breath Objective: Vital Signs Temp Pulse Resp BP Pulse Ox 36.7 C 89 18 145/78 H 96 09/13/18 23:38 09/13/18 23:38 09/13/18 23:38 09/13/18 23:38 09/13/18 23:38 Microbiology 09/10/18 11:49 - Final Sputum, Expectorated Sputum Culture - Final Laboratory Results 09/14/18 04:27 09/14/18 04:27 09/13/18 09/14/18 09/15/18 05:59 05:59 05:59 Intake Total 750 Balance 750 - Physical Exam Constitutional: appears nourished, chronically ill appearing, obese, uncomfortable Eyes: PERRL Ears, Nose, Mouth, Throat: hearing normal Cardiovascular: regular rate and rhythym Respiratory: no respiratory distress, reduced air movement Skin: warm Neurologic: AAOx3 Psychiatric: anxious ICD10 Worksheet Patient Problems: Problems Problem Status Onset Pneumonia Acute Asthma Active Essential hypertension Active Hypoxia Active Narcotic drug user Active Obesity Active Obstructive sleep apnea syndrome Active Acute bronchitis Acute Ataxia Acute Exacerbation of asthma Acute Major depressive disorder, recurrent episode, severe Acute Osteoarthritis of knee Acute Renal insufficiency Acute Tremor Acute
[2018-09-14] MEDS: GABAPENTIN 400 MG CAP PO SCH ×2 (08:27→15:35)
[2018-09-14] MEDS: predniSONE 20 MG TAB PO SCH (08:27)
[2018-09-14] MEDS: PANTOPRAZOLE SODIUM 40 MG TAB PO SCH (08:28)
[2018-09-14] MEDS: ENOXAPARIN 40 MG/0.4 ML SYR SC SCH (08:28)
[2018-09-14] MEDS: DOXYCYCLINE HYCLATE 100 MG CAP/TAB PO SCH (08:28)
[2018-09-14] MEDS: Vilazodone Hcl [Viibryd] 40 MG PO SCH (08:29)
[2018-09-14] MEDS: ALBUTEROL 3 ML DEYVIAL IH SCH ×3 (10:50→16:45)
[2018-09-14] MEDS: FLUTICASONE/SALMETER 250/50MCG DISKUS IH SCH (10:51)
--- NOTE | 2018-09-14 16:09 | ASMTCMCOM ---
CM Note CM Note Notes: Spoke with pt and hospitalist. Hospitalist concerned for bounce back to hospital given pt's anxiety which is interfering with his ability to care for himself. Pt also notes cognitive decline since ECT, which was confirmed through KNOT BORER eval which recommended dc to SNF. OT also recommending SNF. Referral sent to Megan Schwartz and [facility]. PASSR triggered and faxed to [facility]. Pt canceled his PCP appointment today with [facility], and notified his Career Development Facilitator Kedar ([phone]) at [facility]. CM to follow. D/C Plan: SNF, pending acceptance Date Signed: 09/14/2018 04:07 PM Electronically Signed By:Tiffanie Castellanos
[2018-09-14 16:11] VITALS: BP 117/70
--- NOTE | 2018-09-14 16:41 | PDIAF ---
- Diagnosis Diagnosis: left lobe pna, chronic pain due to osteoarthritis Code Status: Full Code - Medication Management Discharge Medications: electronically signed and located in the Home Medication List. - Orders Services needed: Physical Therapy, Occupational Therapy, Speech Language Pathologist Isolation Type: None Diet Recommendation: no restrictions on diet Diet Texture: Regular Texture Diet Additional Instructions: I spoke with Dr. Kevin. Recommendation is for you to get Transcranial Magnetic Stimulation. There is a place in [place] called '[facility] on [address]. Also, [facility] may provide this treatment. Talk with your PCP about pain medications. Need to get set up with the pain clinic. Pool therapy would really help your arthritis and pain. You need to get a repeat CT of your chest in a few months to be sure your pneumonia has resolve, there was concern you had a blood clot, but the supervisor intelligence analyst reviewed it and didn't see any concerns Get a repeat cbc in 1-2 weeks to be sure your WBC count has trended down. Do not take more than prescribed on the bottle of ibuprofen or Tylenol. This both have bad side effects if too much is taken Take Augmentin for 2 more days; start tomorrow Take prednisone 40 mg x 3 days, then 20 mg x 3 days, then 10 mg x 3 days-take w food - Labs/Radiology BMP Date: 09/22/18 CBC w/diff Date: 09/22/18 - Follow Up Care Current Providers and Referrals: Janny Mcguire PA [Primary Care Provider] - As per Instructions
--- NOTE | 2018-09-14 17:18 | ASDISCHSUM ---
Discharge Information Plan Status:SNF Medically Cleared to Leave:09/14/2018 Discharge Date:09/14/2018 CM D/C Disposition:Longterm Facility ADT D/C Disposition: Projected Discharge Date:09/14/2018 11:00 AM Transportation at D/C:Wheelchair Van Discharge Delay Reason: Follow-Up Date:09/14/2018 11:00 AM Discharge Slot: Final Diagnosis:Sepsis, PNA Placement Information Referral Type:*Home Health Care Services Referral ID:[id number] Provider Name: Address 1: Phone Number: Address 2: Fax Number: City: Selection Factors: State: Referral Type:*Chcf/SNF Referral ID:[id number] Provider Name:[facility] Address 1:[address] Address 2: City:[place] Selection Factors: State:[place] Patient Contact Information Contact Name:MAIK Relationship:Other Address: Work Phone: City: [facility] Phone: State/Zip Code: Email: Financial Information Financial Class:Medicare Primary Plan Desc:MEDICARE INPATIENT Primary Plan Number:[id number] Secondary Plan Desc:[facility] Secondary Plan Number:[id number] Assessment Information LACE LACE Acuity / Level of Answers: Yes Care: Did the patient have an inpatient admission? Comorbidities - select Answers: Moderate or severe liver all that apply or renal disease Opioid dependence / Chronic pain Other Notes: Asthma; HTN; Hypothyroi d # of Emergency department Answers: 3-4 visits in the last 6 months Social determinants Answers: Mental health diagnosis (anxiety, depression, pers onality disorders, etc.) Score: 18 Date Signed: 09/10/2018 09:13 AM Electronically Signed By:Sana Putnam [facility] CM Progress Note CM Note CM Note Notes: Reviewed chart, pt admitted for pneumonia. He was recently discharged from , he has a hx of depression and is current with [facility]. Dc needs uncertain, therapies to eval. DC Plan: TBD Date Signed: 09/10/2018 03:31 PM Electronically Signed By:Megan Zhou RN [facility] Progress Note CM Note CM Note Notes: Spoke w/NETWORK DEVELOPMENT COORDINATOR, pt will dc home w/[facility] on Friday. He has an appt with PCP at 2pm. He has a hx of depression and was getting ECT. DC Plan: Home Care/ [facility] (RN/PT) Date Signed: 09/12/2018 04:34 PM Electronically Signed By:Megan Zhou RN [facility] Progress Note CM Note CM Note Notes: CM discussed with Hospitalist. Patient likely to discharge to home with [facility] and has PCP appointment on Friday. CM sent email for [facility] referral, CM to follow. D/C Plan: Home with [facility]. Date Signed: 09/13/2018 11:58 AM Electronically Signed By:Caren Wild [facility] CM Progress Note CM Note CM Note Notes: Spoke with pt and hospitalist. Hospitalist concerned for bounce back to hospital given pt's anxiety which is interfering with his ability to care for himself. Pt also notes cognitive decline since ECT, which was confirmed through RECREATION COUNSELOR eval which recommended dc to SNF. OT also recommending SNF. Referral sent to Megan Schwartz and [facility]. PASSR triggered and faxed to [facility]. Pt canceled his PCP appointment today with [facility], and notified his Design Engineer Agricultural Equipment Kedar ([phone]) at [facility]. CM to follow. D/C Plan: SNF, pending acceptance Date Signed: 09/14/2018 04:07 PM Electronically Signed By:Tiffanie Castellanos Case Management Discharge Plan Note Case Management Discharge Discharge Order Complete? Answers: Yes Patient to Obtain Answers: Other Notes: [facility] Medications Transportation Arranged Answers: Other Notes: [facility] Transport will Pick (Date 09/14/2018 12:00 AM & Time) Faxed Final Orders Answers: Yes Agency/Facility Transfer Answers: Yes Report Printed & Faxed to Receiving Agency Family Notified Answers: No Discharge Comments Notes: Pt to discharge today to [facility]. RN given number for RN report, and given hard script for narcotics for tonight only. Pt comfortable with plan. No further CM needs noted at this time. Date Signed: 09/14/2018 05:15 PM Electronically Signed By:Tiffanie Castellanos Intervention Information Intervention Type:*IM-Signed Date of Service:09/14/2018 10:29 AM Patient Type:Inpatient Staff Member:Sana Putnam Hours: Discipline: Severity: Comment:
--- NOTE | 2018-09-15 04:27 | GDS ---
[f rep st] DISCHARGE SUMMARY DISCHARGE DIAGNOSES: 1. Pneumonia. 2. Acute hypoxemic respiratory failure. 3. Asthma. 4. Concern for pulmonary emboli. 5. Chronic pain on chronic continuous opiates. 6. History of depression. 7. Anxiety. 8. Headache. 9. Obstructive sleep apnea. CONSULTATIONS: 1. Tristin Childs MD. 2. Khloe Garber MD. HISTORY OF PRESENT ILLNESS: Briefly, the patient is a 58-year-old gentleman with a history of depression, asthma and obstructive sleep apnea who presented with cough, shortness of breath and fever. He was admitted here last week for mild asthma exacerbation without clear etiology. He has had a progressive cough for several days. He had a CTA that was suboptimal study for pulmonary embolus. No central embolus was noted. Patchy ground glass and air space opacities in the left perihilar region affecting both left upper and lower lobes was noted suspicious for multifocal pneumonia. It is noted that he had sepsis secondary to the multifocal pneumonia. He was admitted and treated with Zosyn. Doxycycline was added to his regimen. He improved throughout his stay. The plan was for him to return home, but he has had some cognitive issues with ECT therapy. [facility]. HOSPITAL COURSE: Problem: 1. Pneumonia was treated with Zosyn and doxycycline. Blood cultures showed no growth. 2. Acute hypoxemic respiratory failure resolved. 3. Asthma on prednisone. 4. Concern for PE. The CT of the chest was evaluated by the flight operation coordinator who did not see pulmonary emboli on this imaging. 5. Chronic pain. He has been seeing his physician at [facility]. The recommendation is for him to get a pain physician for followup. 6. History of depression. He was seen by Dr. Garber. I reviewed his care with Dr. Winchester. He had been getting ECT without improvement. The recommendation is for him to get transcranial magnetic stimulation to see if this helps with his depression. 7. Anxiety ongoing. 8. Headache. No complaints. 9. Obstructive sleep apnea on CPAP. DISCHARGE CONDITION: Stable. Blood pressure is 117/70, heart rate 78, respiratory rate 12, O2 saturations on room air 92%, temperature 37.2 celsius. MEDICATIONS AT DISCHARGE: Please see the EMR. DISCHARGE INSTRUCTIONS: 1. Recommendation is to get an appointment to get transcranial magnetic stimulation for his depression. 2. Talk with his PCP about his pain medication. He needs a pain specialist. 3. Recommending pool therapy to help with his arthritis and pain. 4. Get a repeat CT to make sure his pneumonia has completely resolved. 5. CBC next week. 6. Take Augmentin for 2 more days starting tomorrow. 7. Prednisone 40 mg x3 days, then 20 mg x3 days then 10 mg x3 days. Greater than 30 minutes discharging and coordinating the patient's care. /[id number]/MODL MTDD
[2018-09-15] MEDS ORDERED: AMOXICILLIN/CLAVULANATE POT 875/125 MG TAB PO SCH (09:00)
--- NOTE | 2018-09-17 13:07 | PQFORM ---
PHYSICIAN QUERY FORM Needs Your Response This query form is being sent to you to assure this patient record is coded properly. Please respond to the question below: SUMMER SCHOOL COORDINATOR QUESTION: Hi Chart documentation reflects Severe Sepsis but is not mentioned in the Summary ( only Sepsis). Did this patient have Severe Sepsis? ___ Yes _x__ No ___ Other (Please Specify ) ___ Unable to determine Thank You Liliya JOYNER Change Attendant INSTRUCTIONS FOR RESPONSE: Answer question by clicking on the "Edit Document" button. Move cursor to area below the stars. When complete, hit "Save." Click on the "Sign" button, then click "Sign" again. Type in your PIN and hit "Enter." MTDD
--- NOTE | 2018-09-17 13:09 | PQFORM ---
PHYSICIAN QUERY FORM Needs Your Response This query form is being sent to you to assure this patient record is coded properly. Please respond to the question below: URGENT CARE PHYSICIAN QUESTION: Hi Chart documentation mentions Acute Metabolic Encephalopathy but is not mentioned in the Summary. Did this patient have Acute Metabolic Encephalopathy? __ Yes __ No __ Other (Please Specify ) _x_ Unable to determine Thank You Liliya Martinez INSTRUCTIONS FOR RESPONSE: Answer question by clicking on the "Edit Document" button. Move cursor to area below the stars. When complete, hit "Save." Click on the "Sign" button, then click "Sign" again. Type in your PIN and hit "Enter." MTDD
== END 2018-09-14 17:53 | DRG 871 ==
LOC: EDUNIT# → F2N 09-10 00:25 → F3E 09-10 11:02
PROVIDERS: ADMIT Student in an Organized Health Care Education/Training Program; ATTEND Internal Medicine
DX: A41.9 Sepsis, unspecified organism (principal); J18.9 Pneumonia, unspecified organism; J96.01 Acute respiratory failure with hypoxia; J45.901 Unspecified asthma with (acute) exacerbation; G47.33 Obstructive sleep apnea (adult) (pediatric); E03.9 Hypothyroidism, unspecified; G89.29 Other chronic pain; F41.8 Other specified anxiety disorders; I10 Essential (primary) hypertension; Z87.891 Personal history of nicotine dependence; Z96.653 Presence of artificial knee joint, bilateral
CPT/HCPCS: 84484-ER; 92523-GN; 96365; 97166-GO; J1650; J1956; J2405; J2543; J2930; J7512; J7613; Q9967